=== PATIENT | male | born 1975 | race Caucasian/White ===

== ENCOUNTER 2016-12-01 07:36 | Emergency (ER) | payer BC ==
[2016-12-01 07:48] VITALS: BP 167/106
[2016-12-01] MEDS ORDERED: Aspirin Low Dose CHEW TAB* 81 MG PO ONE (08:01)
[2016-12-01] MEDS ORDERED: Aspirin Low Dose CHEW TAB* 81 MG ONE (08:02)
--- NOTE | 2016-12-13 17:06 | UC ---
Lola Whipple Anna, scribed for Ginger Vasquez MD on 12/01/16 at 0757 . Cardiac HPI - HPI Summary HPI Summary: Patient is a 41 y/o male coming to [facility] presenting with gradual onset of right- sided chest pain that began three days ago. The pain radiates to his back. He did a lot of shoveling four days ago and noticed the pain the next day. He has additionally been short of breath for the last two days. He worked normally for two days but had to stop working yesterday because of the pain. The pain is exacerbated by lying flat and somewhat alleviated by sitting up. He has been sleeping sitting up because of the pain. He has been coughing, though he reports he has been coughing somewhat at baseline. He has noticed wheezing. He has had diaphoresis at night. Denies nausea, rash, changes in urination from baseline, changes in BM, hematochezia, melena, syncope. His history is significant for HTN, a recent superficial venous thrombosis, and renal cell cancer. His thrombosis was dissolved. He denies recent travel, use of anticoagulants, a history of DM, or a family history of DM, a history of PE. He works every day in an active occupation. He currently smokes 10 cigarettes/day, down from PPD previously. He was hospitalized throughout February and March 2016 following surgery. - History of Current Complaint Stated Complaint: CHEST PAIN Hx Obtained From: Patient Onset/Duration: Lasting Days, Still Present - Allergy/Home Medications Allergies/Adverse Reactions: Allergies Allergy/AdvReac Type Severity Reaction Status Date / Time Penicillins Allergy Edema Verified 12/01/16 09:07 Contrast dye Allergy Severe Hives Uncoded 12/01/16 09:44 Home Medications: Home Medications busPIRone TAB* [Buspar TAB*] 5 mg PO BID 12/01/16 [History Confirmed 12/01/16] PMH/Surg Hx/FS Hx/Imm Hx Endocrine History Of: Denies: Diabetes, Thyroid Disease, Hyperthyroidism, Hypothyroidism, Dyslipidemia Cardiovascular History Of: Reports: Hypertension Denies: Cardiac Disorders, Pacemaker/ICD, Myocardial Infarction, Congestive Heart Failure, Atrial Fibrillation, Deep Vein Thrombosis, Bleeding Disorders Respiratory History Of: Denies: COPD, Asthma, Bronchitis, Pneumonia, Pulmonary Embolism GI/ History Of: Reports: Renal Disease - LEFT KIDNEY, GROSS HEMATURIA, renal cell CA with nephrectomy done March 2016 Denies: Gastroesophageal Reflux, Ulcer, Gastrointestinal Bleed, Gall Bladder Disease, Kidney Stones, Diverticulitis, Urosepsis Neurological History Of: Denies: TIA, CVA, Dementia, Seizures, Migraine Psychological History Of: Denies: Anxiety, Depression, Bipolar Disorder, Schizophrenia, Post Traumatic Stress Disorder Cancer History Of: Denies: Lung Cancer, Colorectal Cancer, Breast Cancer, Prostate Cancer, Cervical Cancer Other History Of: Negative For: HIV, Hepatitis B, Hepatitis C, Anticoagulant Therapy - Surgical History Surgical History: Yes Surgery Procedure, Year, and Place: EUA LEFT KNEE X 2. EUA RIGHT KNEE X 2. LEFT NEPHRECTOMY- bowel resection due to complications during surgery - Family History Known Family History: Positive: Hypertension Negative: Cardiac Disease, Diabetes - Social History Occupation: Employed Full-time - Construction Alcohol Use: Occasionally Alcohol Amount: 3 drinks at a time Substance Use Type: None Smoking Status (MU): Light Every Day Tobacco Smoker Type: Cigarettes Amount Used/How Often: 10 cigarettes/day, down from 1 ppd Length of Time of Smoking/Using Tobacco: 15 years Have You Smoked in the Last Year: Yes Household Exposure Type: Cigarettes - Immunization History Most Recent Influenza Vaccination: na Most Recent Tetanus Shot: 2014 Most Recent Pneumonia Vaccination: na Review of Systems Constitutional: Other - Diaphoretic at night Skin: Negative Eyes: Negative ENT: Negative Respiratory: Shortness Of Breath, Cough, Other - wheezing Cardiovascular: Chest Pain Gastrointestinal: Negative Genitourinary: Negative Motor: Negative Neurovascular: Negative Musculoskeletal: Negative Neurological: Negative Psychological: Negative All Other Systems Reviewed And Are Negative: Yes Physical Exam Triage Information Reviewed: Yes Appearance: Well-Nourished Vital Signs: Initial Vital Signs Temp 98.8 F 12/01/16 07:41 Pulse 82 12/01/16 07:41 Resp 20 12/01/16 07:41 BP 167/106 12/01/16 07:41 Pulse Ox 100 12/01/16 07:41 Vital Signs Reviewed: Yes Eye Exam: Normal ENT Exam: Normal Neck exam: Normal Neck: Positive: Other: - No adenopathy appreciated. Respiratory: Positive: No respiratory distress, No accessory muscle use. Negative: Chest non-tender - Tender posterior lateral chest wall, Normal breath sounds - Coarse bibasalar chest sounds. Berath sounds fairly equal. Cardiovascular Exam: Normal Cardiovascular: Positive: RRR, No Murmur, Pulses Normal - sitting up, Brisk Capillary Refill Abdominal Exam: Other - Post-operative scars on anterior abd wall, at site of kidney removal Abdomen Description: Positive: Nontender, No Organomegaly, Soft Bowel Sounds: Positive: Present Musculoskeletal Exam: Normal Musculoskeletal: Positive: Strength Intact Neurological Exam: Normal - Nonfocal, grossly intact Psychological Exam: Normal - Conversing easily and appropriately Skin Exam: Normal - No visible or reported rash Diagnostics - EKG Cardiac Rate: NL - 84 bpm. Early repol pattern W[place] 165 QTc 425. No old EKG for comparison. Cardiac Rhythm: Sinus: Normal - Assessment/Plan Course Of Treatment: Patient offered and encouraged EMS. Patient politely but firmly declines. Patient given four baby Aspirin prior to departure. - Clinical Impression Provider Diagnoses: chest pain - Physician Notifications Discussed Patient Care With: Called [facility] at 0803. No answer. Called again at 0808. After wait, discussed with Jessica Ruano (ED PA) at 0809. Agrees to accept patient at [facility]. Discharge - Discharge Plan Condition: Guarded Disposition: TRANS HIGHER LVL OF CARE FAC Referrals: Aleksander Busby MD [Primary Care Provider] - The documentation as recorded by the Lola manzano Anna accurately reflects the service I personally performed and the decisions made by me, Ginger Vasquez MD.
== END 2016-12-01 08:30 | disposition short-term general hospital (02) ==
LOC: UCEAST 07:36
DX: R07.89 Other chest pain (principal); R06.02 Shortness of breath; R06.2 Wheezing; R61 Generalized hyperhidrosis; I10 Essential (primary) hypertension; Z85.528 Personal history of other malignant neoplasm of kidney; Z90.5 Acquired absence of kidney; Z88.0 Allergy status to penicillin; Z91.041 Radiographic dye allergy status; F17.210 Nicotine dependence, cigarettes, uncomplicated
CPT/HCPCS: 93005; 99212; A9270-GY; G0463

== ENCOUNTER 2016-12-01 08:24 | Observation (INO) | payer BC ==
[2016-12-01] MEDS ORDERED: Aspirin Low Dose CHEW TAB* 81 MG PO ONE (08:37)
[2016-12-01] MEDS ORDERED: Nitroglycerin TAB 0.4 MG* 0.4 MG TAB SL ONE (08:45)
--- NOTE | 2016-12-01 08:58 | RAD ---
Indication: Chest pain, shortness of breath, hypertension. Comparison: April 15, 2016 CT abdomen and November 17, 2004 chest radiograph. Technique: Upright AP 0850 hours Report: Elevated lung volumes. No pulmonary infiltrate, focal pulmonary lesion, pleural effusion, pneumothorax. The heart, pulmonary vasculature, and mediastinal contours are unremarkable. IMPRESSION: Elevated lung volumes suggest potential obstructive lung disease. No acute cardiopulmonary process evident.
[2016-12-01 09:00] LABS: Hematocrit 48 % (42-52); Hemoglobin 16.4 g/dl (14.0-18.0); Mean Corpuscular HGB Conc 35 g/dl (31-36); Mean Corpuscular Hemoglobin 35 pg (27-31); Mean Corpuscular Volume 100 fL (80-94); Mean Platelet Volume 8 um3 (7.4-10.4); Red Blood Count 4.75 10^6/ul (4.0-5.4); Red Cell Distribution Width 13 % (10.5-15); White Blood Count 10.5 10^3/ul (3.5-10.8)
[2016-12-01 09:17] LABS: Albumin 4.4 g/dL (3.2-5.2); BUN/Creatinine Ratio 12.9 (8-20); Calcium 9.4 mg/dL (8.6-10.3); EGFR African American 89.2 (>60); EGFR Non-African American 69.4 (>60); Globulin 2.4 g/dL (2-4); Potassium 3.9 mmol/L (3.5-5.0); Total Bilirubin 0.8 mg/dL (0.2-1.0); Total Protein 6.8 g/dL (6.4-8.9)
--- NOTE | 2016-12-01 11:17 | RAD ---
Indication: Chest pain and shortness of breath. History of renal carcinoma with LEFT nephrectomy. Comparison: December 01, 2016 chest radiograph. Technique: Following administration of 12.900 mCi xenon-133 by inhalation anterior and posterior ventilation images were obtained. Following the administration of 6.200 mCi of Tc-99m macroaggregated albumin, perfusion images were obtained in multiple projections. Report: The ventilation pattern is uniform with no evidence of air trapping. Negative for segmental or subsegmental perfusion defects. IMPRESSION: No evidence for pulmonary embolism.
[2016-12-01] MEDS ORDERED: Ketorolac INJ* 30 MG/ML 1 ML VIAL IV PUSH ONE (11:31)
[2016-12-01] MEDS ORDERED: Ondansetron INJ* 2 MG/ML VIAL IV ONE (11:37)
[2016-12-01] MEDS ORDERED: Morphine INJ* 4 MG/ML 1 ML SYRINGE IV ONE (11:37)
[2016-12-01] MEDS ORDERED: Ketorolac INJ* 15 MG/ML 1 ML VIAL IV PUSH ONE (11:37)
[2016-12-01] MEDS ORDERED: Acetaminophen TAB* 325 MG PO PRN (12:33)
[2016-12-01] MEDS ORDERED: HYDROcodone/ACETAMIN 5-325 MG* 1 TAB PO PRN (12:33)
[2016-12-01] MEDS ORDERED: NS 0.9% 1000 ML* 1,000 ML IV SCH (12:45)
[2016-12-01 12:55] LABS: C Reactive Protein 2.2 mg/L (< 5.00)
[2016-12-01] MEDS: Nicotine PATCH 21 MG/24 HR* PATCH TRANSDERM SCH (13:07)
[2016-12-01] MEDS: Colchicine* 0.6 MG TAB PO SCH (13:08)
[2016-12-01 13:26] LABS: Erythrocyte Sed Rate 3 mm/Hr (0-14)
[2016-12-01] MEDS: Heparin VIAL(*) 5000 UNITS/ML VIAL (FIVE THOUSAND) SUBCUT SCH (15:42)
--- NOTE | 2016-12-01 16:20 | ECHO ---
Patient: RICHARD COTTO [facility] Rec#: [id number] : 1975 Date: 12/01/2016 Age: 41y Height: 182.88 cm / 72.0 in Weight: 75.75 kg / 167.0 lbs Sex: M BSA: 1.97 Room#: 441 Admit Date#: 12/01/2016 Type: Inpatient Referring: Dejuan Gonzalez NP Reading: Saman Santos MD Tool And Die Maker Apprentice: Socorro Lozano RDCS CC: Aleksander Busby MD Transthoracic Echocardiogram Indication: CP/SOB BP: 140/98 HR: 80 Rhythm: NSR Findings History: S/p left nephrectomy with subsequent abd. repair ( approx 2 weeks ago),smoker. Technical Comments: The study is technically limited due to the patient's smoking history. Completed at 1517. Left Ventricle: The left ventricular chamber size is normal. Mild concentric left ventricular hypertrophy is observed. Global left ventricular wall motion and contractility are within normal limits. There is normal left ventricular systolic function. The estimated ejection fraction is 55-60%. There is no consistent Doppler evidence of clinically significant diastolic dysfunction. Left Atrium: The left atrial chamber size is normal. Right Ventricle: The right ventricular cavity size is normal. The right ventricular global systolic function is normal. Right Atrium: The right atrial cavity size is normal. Aortic Valve: The aortic valve is trileaflet. There is no evidence of aortic regurgitation. There is no evidence of aortic stenosis. Mitral Valve: The mitral valve leaflets are mildly thickened. There is mild mitral regurgitation. There is no evidence of mitral stenosis. Tricuspid Valve: The tricuspid valve leaflets are normal. There is a physiologic tricuspid regurgitation. Unable to estimate the right ventricular systolic pressure. Pulmonic Valve: The pulmonic valve appears normal. There is no evidence of pulmonic regurgitation. There is no pulmonic stenosis. Pericardium: The pericardium appears normal. There is no pericardial effusion. Aorta: There is no dilatation of the ascending aorta. There is no dilatation of the aortic arch. There is mild dilatation of the aortic root. Pulmonary Artery: The main pulmonary artery appears normal. Venous: The inferior vena cava appears normal in size. There is a greater than 50% respiratory change in the inferior vena cava dimension. Conclusions Mild concentric left ventricular hypertrophy is observed. Global left ventricular wall motion and contractility are within normal limits. There is normal left ventricular systolic function. The estimated ejection fraction is 55-60%. There is no evidence of aortic regurgitation. There is mild mitral regurgitation. There is a physiologic tricuspid regurgitation. Unable to estimate the right ventricular systolic pressure. The pericardium appears normal. Measurements Name Value Normal Range RVIDd (AP) 2D 3 cm (0.9 - 2.6) RVDdMajor (2D) 3.3 cm (2.2 - 4.4) RAd ISD 4CH 4.6 cm (3.4 - 4.9) RA (A4C)W 2.9 cm (2.9 - 4.6) IVSd (2D) 1.2 cm (0.6 - 1) LVPWd (2D) 1.2 cm (0.6 - 1) LVIDd (2D) 4.2 cm (3.6 - 5.4) LVIDs (2D) 3 cm - LV FS (2D) 28 % (25 - 45) Aortic Annulus 2 cm (1.4 - 2.6) Ao root diameter (2D) 3.7 cm (2.1 - 3.5) Ascending Ao 2.7 cm (2.1 - 3.4) Aortic arch 2.9 cm (1.8 - 3.4) Descending Ao 0.6 cm - LA dimension (AP) 2D 3.5 cm (2.3 - 3.8) LAd ISD 4CH 4.2 cm (2.9 - 5.3) LA ISD 4CH W 3.7 cm (2.5 - 4.5) Name Value Normal Range LA ESV SP 4CH (A/L) 39 ml - LA ESV SP 2CH (A/L) 37 ml - LA ESV BP (A/L) 41 ml - LA ESV BP (A/L) index 20.96 ml/m2 - LA ESV SP 4CH (MOD) 37 ml - LA ESV SP 2CH (MOD) 33 ml - Name Value Normal Range MV E-wave Vmax 0.8 m/sec - MV deceleration time 262 msec - MV A-wave Vmax 0.8 m/sec - MV E:A ratio 1.05 ratio - LV septal e' Vmax 0.11 m/sec - LV lateral e' Vmax 0.1 m/sec - LV E:e' septal ratio 7.27 ratio - LV E:e' lateral ratio 8 ratio - Name Value Normal Range AV Vmax 1.3 m/sec - AV VTI 24.3 cm - AV peak gradient 6.48 mmHg - AV mean gradient 3.97 mmHg - LVOT Vmax 1.2 m/sec - LVOT VTI 19.4 cm - LVOT peak gradient 5.38 mmHg - LVOT mean gradient 2.34 mmHg - Name Value Normal Range IVC diameter 1.1 cm - Name Value Normal Range PV Vmax 0.9 m/sec - PV peak gradient 3.17 mmHg -
--- NOTE | 2016-12-01 19:31 | HP ---
HISTORY AND PHYSICAL: DATE OF ADMISSION: 12/01/16 PRIMARY CARE PROVIDER: Dr. Busby. ATTENDING PHYSICIAN WHILE IN THE HOSPITAL: Claire Vaughn DO* (report dictated by Dejuan Gonzalez NP). CHIEF COMPLAINT: Chest discomfort. HISTORY OF PRESENTING ILLNESS: Mr. Scott is a 41-year-old male patient who recently was diagnosed with renal cell cancer status post nephrectomy, who comes into the ER today stating that over the last 48 hours he has had progressive worsening shortness of breath, dyspnea on exertion and pain in his chest that has been going on over the last 3 to 5 days. He noticed after working on his driveway last week he had some discomfort, but over the last 3 to 5 days it is much worse, so he states last night he tried lying flat and the night before and the pain was unbearable, as soon as he sat up the pain felt better. He states the pain has been mostly on the right side underneath the armpit, wrapping around to his back. He denied having any rash there or lesions or vesicles. He states that he has not been sick recently to his knowledge. No URI symptoms and no runny nose, cough or sore throat. He states the pain is worse when he takes a deep breath and he states that he has not had any chest pain with exertion and he describes the pain as a sharp stabbing pain that is constant and has been getting worse in the last few days. He came into the ER today, there was concern for the chest discomfort, we were asked to evaluate for admission. PAST MEDICAL HISTORY: Significant for: 1. Renal cell carcinoma, status post nephrectomy. 2. Hypertension. 3. DVT in the right upper extremity thought to be provoked after the surgery. PAST SURGICAL HISTORY: 1. He has had bilateral knee arthroscopies. 2. Nephrectomy on the left side with a complication of bowel perforation and status post correction of that. HOME MEDICATIONS: According to the list that we were able to obtain include: 1. BuSpar 5 mg p.o. b.i.d. 2. Lisinopril 2.5 mg at bedtime. ALLERGIES TO MEDICATIONS: Include PENICILLIN and IV DYE. FAMILY HISTORY: Reviewed, noncontributory. He does have a grandmother on his maternal side with cancer. SOCIAL HISTORY: He is about a half a pack to a pack a day smoker for about 14 years. He does not drink alcohol any more; if he does, it is very rarely. His surrogate decision maker is his mother Jigna and he is a director of construction. REVIEW OF SYSTEMS: There is no documented fever. He denied having any significant weight change. There was no double vision. There is no ear discharge. He denies having any rhinorrhea. No sore throat. No thyroid enlargement. There was chest pain per my HPI. There is dyspnea on exertion. No orthopnea. No nocturnal dyspnea. There is no abdominal pain. No nausea, no vomiting, no dysuria, no frequency. No loss of consciousness. No pruritus and no skin ulcerations. Review of 14 systems completed, all others negative. PHYSICAL EXAMINATION GENERAL: At this time, Mr. Scott is a 41-year-old male patient, appears to be well nourished, well developed. He does not appear to be in any acute distress. VITAL SIGNS: Blood pressure 140/98, pulse 73, respirations 18, O2 sat 97%, temperature 98.4. HEENT: Head is atraumatic, normocephalic. Eyes: EOMs intact. Sclerae anicteric and not pale. Throat: Oral mucosa appears to be moist. No oropharyngeal erythema. NECK: Supple. LUNGS: Clear to auscultation bilaterally. No wheezes or rhonchi. HEART: Sounds S1, S2. Regular rate and rhythm. No murmurs, rubs or gallops. ABDOMEN: Soft, flat, nontender. Bowel sounds present. EXTREMITIES: Pulses were 2+ throughout. He is able to move all 4 extremities with 5/5 strength. NEUROLOGIC: The patient is awake, alert, oriented x3. Tongue midline. Block Saw Operator were equal. No gross focal deficits. SKIN: Intact. LABORATORY DATA: Labs today revealed WBC 10.5, RBC of 4.75, hemoglobin 16.4, hematocrit 48, platelet count of 203. Sodium is 135, potassium 3.9, chloride 101, bicarb 28, BUN 15, creatinine 1.16, glucose 107, lactate 1.1, calcium 9.4, total bili 0.8, AST 20, ALT 21, alk phos 25, troponin 0.00, albumin 4.4. IMAGING: He had multiple imaging and EKGs in the ER. He had a chest x-ray which showed elevated lung volumes to suggest potential obstructive lung disease. No acute cardiac process evident. He had a lung V/Q scan which revealed no evidence of PE. He had serial EKGs here in the ER. It is noted on these EKGs that he does have what appears to be diffuse ST elevation and PA depression throughout and J- point elevation as well, which had been consistent with his EKGs that he has had, he has had 4 today. Old medical records reviewed. ASSESSMENT AND PLAN: Mr. Scott is a 41-year-old male patient coming into the ER today with complaints of right-sided chest discomfort, worse with taking deep breath and in discomfort. Hospitalist service was asked to evaluate in consult. He will be admitted under observation status for: 1. Chest pain. I suspect the etiology of this is probably a pericarditis. He has got the EKG that looks suspicious for this. I do not know the etiology of this at this point, he had no recent upper respiratory symptoms. Typically I would treat this with NSAIDs. Unfortunately, because of the one kidney, this complicates things and I am going to try colchicine 0.6 mg p.o. b.i.d. I may need to add on steroids at some point, but I would like to try the colchicine, cycle his troponins, place him on telemetry, get an echo, repeat his labs in the morning to make sure he is stable and make sure his pain is under control. I also did order a small dose of [place] should his pain become out of control and I will continue to follow him. I am sending off ESR and CRP. 2. Hypertension, continue the lisinopril. 3. Renal cell carcinoma, follow up with his primary. 4. History of deep venous thrombosis. Again this was provoked in the past. I am going to put him on SCD's and subcu heparin for deep venous thrombosis prevention. 5. Code status: He is a full code. 6. Fluids, electrolytes and nutrition. He can have a regular diet. TIME SPENT: On the admission was approximately 60 minutes, greater than half the time was spent [id number] with the patient obtaining my history and physical, other half the time spent going over the plan of care with the patient and implementing plan of care. I did discuss the plan of care with my attending, Dr. Vaughn, she is in agreement. DEJUAN GONZALEZ NP CC: Dr. Busby* [id number]/[facility] #: [id number] JOSH
[2016-12-01] MEDS ORDERED: Lisinopril TAB* 5 MG PO SCH (21:00)
[2016-12-01] MEDS ORDERED: Nicotine Patch Removal NOTE FOLLOW UP SCH (21:00)
[2016-12-02] MEDS: Colchicine* 0.6 MG TAB PO SCH ×2 (00:05→08:34)
[2016-12-02] MEDS: Heparin VIAL(*) 5000 UNITS/ML VIAL (FIVE THOUSAND) SUBCUT SCH ×2 (00:07→06:05)
[2016-12-02] MEDS: busPIRone TAB* 5 MG PO SCH ×2 (00:08→08:35)
[2016-12-02 05:20] LABS: Hematocrit 48 % (42-52); Hemoglobin 16.3 g/dl (14.0-18.0); Mean Corpuscular HGB Conc 34 g/dl (31-36); Mean Corpuscular Hemoglobin 34 pg (27-31); Mean Corpuscular Volume 101 fL (80-94); Mean Platelet Volume 8 um3 (7.4-10.4); Red Blood Count 4.77 10^6/ul (4.0-5.4); Red Cell Distribution Width 13 % (10.5-15); White Blood Count 11.5 10^3/ul (3.5-10.8)
[2016-12-02 05:35] LABS: BUN/Creatinine Ratio 11.8 (8-20); Calcium 9.2 mg/dL (8.6-10.3); EGFR African American 86.6 (>60); EGFR Non-African American 67.4 (>60); Potassium 4.3 mmol/L (3.5-5.0)
[2016-12-02 07:49] VITALS: BP 120/87
[2016-12-02] MEDS: Nicotine PATCH 21 MG/24 HR* PATCH TRANSDERM SCH (08:36)
--- NOTE | 2016-12-02 08:57 | DCNOTE ---
Patient seen this morning. Pain has resolved, no complaints, anxious to leave. On exam, RRR, s1 and s2 present, no rub appreciated, lungs CTA B/L Will discharge home on colchicine for pericarditis. Has PCP f/u this week.
--- NOTE | 2016-12-03 04:04 | DS ---
DISCHARGE SUMMARY: DATE OF ADMISSION: 12/01/16 DATE OF DISCHARGE: 12/02/16 PRIMARY CARE PHYSICIAN: Aleksander Busby MD PRINCIPAL DISCHARGE DIAGNOSIS: Pericarditis. SECONDARY DIAGNOSES: 1. Renal cell carcinoma, status post nephrectomy. 2. Hypertension. DISCHARGE MEDICATIONS: 1. Colchicine 0.6 mg by mouth 3 times daily. 2. Lisinopril 2.5 mg by mouth at bedtime. 3. BuSpar 5 mg by mouth 2 times daily. STUDIES DURING HOSPITALIZATION: Chest x-ray, impression: Elevated lung volumes to suggest potential obstructive lung disease. No acute cardiac process is evident. V/Q scan, impression: No evidence for pulmonary embolism. Transthoracic echocardiogram, conclusion: Mild concentric LVH. Global left ventricular wall motion and contractility are within normal limits. There is normal left ventricular systolic function. The estimated ejection fraction is 55% to 60%. There is no evidence of aortic regurgitation. There is mild mitral regurgitation. There is physiologic tricuspid regurgitation, unable to estimate the right ventricular systolic pressure. The pericardium appears normal. HISTORY OF PRESENT ILLNESS AND HOSPITAL SUMMARY: Please see the full history and physical by Dejuan Gonzalez NP for full details. Briefly, Mr. Scott is a 41-year-old man with a past medical history as above who presented to the hospital with chest pain, some dyspnea on exertion. The patient states the pain improves when he sits forwards, is much worse when he lays flat. The patient had an echocardiogram done as above, that was normal. Troponins were negative. The patient had no events on tele. The patient did have EKG findings consistent with pericarditis. He was started on colchicine with improvement in his symptoms. He felt well the following day and he will be discharged home with oral colchicine to continue as an outpatient. TIME SPENT: Total time spent on this discharge 45 minutes. This is a summary of the hospitalization. Please see the full medical record for further details. CC: Dr. Busby* [id number]/[facility] #: [id number] [facility]
== END 2016-12-02 09:45 | disposition home or self-care (01) ==
LOC: ED 08:24 → MEDTELE 12:33
PROVIDERS: ADMIT Hospitalist; ATTEND Hospitalist
DX: I31.9 Disease of pericardium, unspecified (principal); I10 Essential (primary) hypertension; I51.7 Cardiomegaly; R07.9 Chest pain, unspecified; Z86.718 Personal history of other venous thrombosis and embolism; Z85.528 Personal history of other malignant neoplasm of kidney; Z88.0 Allergy status to penicillin; Z91.041 Radiographic dye allergy status; F17.210 Nicotine dependence, cigarettes, uncomplicated
CPT/HCPCS: 36415; 71010; 78582; 80048; 80053; 83605; 84484; 85025; 85610; 85652; 86140; 93005; 93306; 96361; 96374; 96375; 99284; A9270-GY; A9540; A9558; J1644; J1885; J2270; J2405

== ENCOUNTER 2017-03-05 06:36 | Emergency (ER) | payer BC ==
[2017-03-05] MEDS ORDERED: Ketorolac INJ* 60 MG/2 ML VIAL IM ONE (07:27)
[2017-03-05] MEDS ORDERED: LORazepam TAB(*) 1 MG PO ONE (07:27)
--- NOTE | 2017-03-05 08:25 | RAD ---
INDICATION: Trauma, low back pain. COMPARISON: Comparison is made with a prior CT of the abdomen and pelvis from March 05, 2016. TECHNIQUE: Contiguous axial sections were obtained beginning above the T12 vertebra and continuing through the L5-S1 disc space. Images were reconstructed in the sagittal and coronal planes. FINDINGS: The vertebra are in normal alignment. There is unilateral spondylolysis at the L5 level on the left side which is unchanged from the prior CT study. No other fractures are seen. At the L4-L5 level there is a mild broad-based disc bulge and mild hypertrophic changes within the facet joints. There is mild spinal canal narrowing and mild bilateral neural foraminal narrowing. At the L5-S1 level there is a mild broad-based disc bulge is a slightly more prominent posterolaterally toward the left side. There are mild hypertrophic changes within the facet joints. No significant spinal canal narrowing is present. There is mild bilateral neural foraminal narrowing. The patient is status post left nephrectomy. There is fatty infiltration of the liver which is only partially visualized on this study. IMPRESSION: 1. 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 2. MILD DEGENERATIVE DISC DISEASE AND FACET OSTEOARTHRITIS IN THE LOWER LUMBAR SPINE. 3. STATUS POST LEFT NEPHRECTOMY.
[2017-03-05] MEDS ORDERED: oxyCODONE/Acetamin 5/325 MG* TAB PO ONE (08:59)
[2017-03-05 09:59] VITALS: BP 120/78
--- NOTE | 2017-03-05 10:49 | ED ---
Rosalie Whipple Auryana, scribed for Rufino Hill MD on 03/05/17 at 0734 . Back Pain - HPI Summary HPI Summary: 41 year old male presents with low back pain starting yesterday afternoon worse since this morning. Patient states that he was lifting blocks yesterday afternoon and heard a large "pop". The pain is located in the medial lower back. Patient reports that he is unable to stand up straight and had difficulty getting out of bed. He denies any trouble with urination or bowel movements. He denies any leg weakness. He reports a previous low back injury in high school but denies any recent injuries or pain since then. PMHx is significant for kidney tumor with removal, HTN, and anxiety. PCP is Dr. Busby. - History of Current Complaint Chief Complaint: EDBackInjuryPain Stated Complaint: BACK PAIN Time Seen by Provider: 03/05/17 07:22 Hx Obtained From: Patient Onset/Duration: Sudden Onset, Lasting Days - yesterday afternoon, Still Present Onset/Duration: Started Days Ago - yesterday, Still Present Timing: Constant Back Pain Location: Is Discrete @ - lower back Severity Initially: Moderate Severity Currently: Severe Pain Intensity: 10 Pain Scale Used: 0-10 Numeric Aggravating Symptom(s): Movement Associated Signs And Symptoms: Positive: Pain with Weight Bearing - reports unable to stand up. Negative: Weakness, Bladder Incontinence, Bowel Incontinence - Allergies/Home Medications Allergies/Adverse Reactions: Allergies Allergy/AdvReac Type Severity Reaction Status Date / Time Penicillins Allergy Edema Verified 12/01/16 09:07 Contrast dye Allergy Severe Hives Uncoded 12/01/16 09:44 PMH/Surg Hx/FS Hx/Imm Hx Endocrine/Hematology History: Denies: Hx Anticoagulant Therapy, Hx Diabetes, Hx Thyroid Disease Cardiovascular History: Reports: Hx Hypertension Denies: Hx Congestive Heart Failure, Hx Deep Vein Thrombosis, Hx Myocardial Infarction, Hx Pacemaker/ICD Respiratory History: Denies: Hx Asthma, Hx Chronic Obstructive Pulmonary Disease (COPD), Hx Lung Cancer, Hx Pneumonia, Hx Pulmonary Embolism GI History: Reports: Other GI Disorders - Accidental surgery which damaged bowel ; repaired Denies: Hx Gall Bladder Disease, Hx Gastrointestinal Bleed, Hx Ulcer, Hx Urosepsis History: Reports: Hx Renal Disease - LEFT KIDNEY, GROSS HEMATURIA, renal cell CA with nephrectomy done March 2016, Other Problems/Disorders - L kidney removal Denies: Hx Kidney Stones Sensory History: Reports: Hx Contacts or Glasses Opthamlomology History: Reports: Hx Contacts or Glasses Neurological History: Denies: Hx Dementia, Hx Migraine, Hx Seizures, Hx Transient Ischemic Attacks (TIA) Psychiatric History: Denies: Hx Anxiety, Hx Depression, Hx Schizophrenia, Hx Bipolar Disorder - Cancer History Cancer Type, Location and Year: kidney renal cell CA Hx Chemotherapy: No Hx Radiation Therapy: No Hx Palliative Cancer Treatment: No - Surgical History Surgery Procedure, Year, and Place: EUA LEFT KNEE X 2. EUA RIGHT KNEE X 2. LEFT NEPHRECTOMY- bowel resection due to complications during surgery Infectious Disease History: No Infectious Disease History: Denies: History Other Infectious Disease, Traveled Outside the [place] in Last 30 Days - Family History Known Family History: Positive: Hypertension Negative: Cardiac Disease - Social History Occupation: Employed Full-time - other Lives: With Family Alcohol Use: Rare Alcohol Amount: 3 drinks at a time Substance Use Type: Reports: None Smoking Status (MU): Light Every Day Tobacco Smoker Type: Cigarettes Amount Used/How Often: 1 ppd Length of Time of Smoking/Using Tobacco: 15 years Have You Smoked in the Last Year: Yes Review of Systems Constitutional: Negative Negative: Fever Eyes: Negative ENT: Negative Cardiovascular: Negative Respiratory: Negative Gastrointestinal: Negative Genitourinary: Negative Positive: no symptoms reported Positive: Myalgia - low back pain Skin: Negative Neurological: Negative Negative: Weakness Psychological: Normal All Other Systems Reviewed And Are Negative: Yes Physical Exam Triage Information Reviewed: Yes Vital Signs On Initial Exam: Initial Vitals Temp Pulse Resp BP Pulse Ox 98.9 F 78 18 133/85 96 03/05/17 06:44 03/05/17 06:44 03/05/17 06:44 03/05/17 06:44 03/05/17 06:44 Vital Signs Reviewed: Yes Appearance: Positive: Well-Appearing, No Pain Distress, Well-Nourished Skin: Positive: Warm, Skin Color Reflects Adequate Perfusion, Dry Head/Face: Positive: Normal Head/Face Inspection Eyes: Positive: Normal ENT: Positive: Normal ENT inspection Neck: Positive: Supple, Nontender Respiratory/Lung Sounds: Positive: Clear to Auscultation, Breath Sounds Present Cardiovascular: Positive: RRR, Pulses are Symmetrical in both Upper and Lower Extremities Abdomen Description: Positive: Nontender, Soft Bowel Sounds: Positive: Present Musculoskeletal: Positive: Pain @ - lower lumbar midline, Other - (+) straight leg raise Neurological: Positive: Normal, Sensory/Motor Intact Psychiatric: Positive: Normal, Affect/Mood Appropriate Diagnostics - Vital Signs Vital Signs Temp Pulse Resp BP Pulse Ox 03/05/17 06:44 98.9 F 78 18 133/85 96 - Laboratory Lab Statement: Any lab studies that have been ordered have been reviewed, and results considered in the medical decision making process. - CT LUMBAR CT Interpretation: Positive (See Comments) - IMPRESSION: 1. 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 2. MILD DEGENERATIVE DISC DISEASE AND FACET OSTEOARTHRITIS IN THE LOWER LUMBAR SPINE. 3. STATUS POST LEFT NEPHRECTOMY. CT Interpretation Completed By: Radiologist Re-Evaluation - Re-Evaluation First Eval Re-Evaluation Time: 08:56 - will medicate as accordingly Change: Unchanged Back Pain Course/Dx - Course Course Of Treatment: Mr. Scott strained his back lifting a lawnmower yesterday and his W/U here was negative. He got somee improvement with medications here and I will treat him accordingly. - Diagnoses Provider Diagnoses: Low back strain Discharge - Discharge Plan Condition: Stable Disposition: HOME Prescriptions: HYDROcodone/ACETAMIN 5-325 MG* [[place] 5-325 TAB*] 1 tab PO Q6H PRN #20 tab MDD 4 PRN Reason: Pain LORazepam TAB(*) [Ativan TAB(*)] 1 mg PO Q6H PRN #20 tab MDD 4 PRN Reason: Pain Patient Education Materials: Low Back Strain (ED) Referrals: Aleksander Busby MD [Primary Care Provider] - 3 Days The documentation as recorded by the Rosalie manzano Auryana accurately reflects the service I personally performed and the decisions made by me, Rufino Hill MD.
== END 2017-03-05 10:10 | disposition home or self-care (01) ==
LOC: ED 06:36
DX: S39.012A Strain of muscle, fascia and tendon of lower back, initial encounter (principal); X58.XXXA Exposure to other specified factors, initial encounter; Y92.9 Unspecified place or not applicable; I10 Essential (primary) hypertension; F41.9 Anxiety disorder, unspecified; Z88.0 Allergy status to penicillin; F17.210 Nicotine dependence, cigarettes, uncomplicated; M51.36 Other intervertebral disc degeneration, lumbar region
CPT/HCPCS: 72131; 96372; 99282; A9270-GY; J1885

== ENCOUNTER 2018-03-10 09:27 | Emergency (ER) | payer BC ==
[2018-03-10] MEDS ORDERED: Methocarbamol* 100 MG/ML 10 ML VIAL IV ONE (09:46)
--- NOTE | 2018-03-10 10:00 | ED ---
Back Pain - HPI Summary HPI Summary: 42 year male presents with back pain for the past 6 weeks. He denies any injury. 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 Pain has been increasing every day. He has been taking Flexeril without relief. He's had normal CT couple months ago. was seen here a couple weeks ago and normal CT. He has a past medical history of renal cell carcinoma that was removed with surgery. He denies any chest pain or shortness of breath. Pain is worse at night. No numbness and tingling. No fevers. No saddle anesthesia or loss of bowel or bladder. He does not remember particular injury but lifts a lot at work. No bowel pain. No nausea and no vomiting. No urinary symptoms. No pain weakness. Primary told him to come here as the Flexeril is not working. - History of Current Complaint Chief Complaint: EDBackInjuryPain Stated Complaint: LT SIDE PAIN/DIFF BREATHING Time Seen by Provider: 03/10/18 09:37 Pain Intensity: 8 - Allergies/Home Medications Allergies/Adverse Reactions: Allergies Allergy/AdvReac Type Severity Reaction Status Date / Time Penicillins Allergy Intermediate Edema Verified 03/10/18 12:16 Contrast dye Allergy Severe Hives Uncoded 12/01/16 09:44 Home Medications: Home Medications Acetaminophen TAB* [Tylenol TAB*] 650 mg PO Q4H PRN 03/10/18 [History Confirmed 03/10/18] Lisinopril TAB* [Prinivil TAB*] 5 mg PO DAILY 03/10/18 [History Confirmed ] PMH/Surg Hx/FS Hx/Imm Hx Endocrine/Hematology History: Denies: Hx Anticoagulant Therapy, Hx Diabetes, Hx Thyroid Disease Cardiovascular History: Reports: Hx Hypertension Denies: Hx Congestive Heart Failure, Hx Deep Vein Thrombosis, Hx Myocardial Infarction, Hx Pacemaker/ICD Respiratory History: Denies: Hx Asthma, Hx Chronic Obstructive Pulmonary Disease (COPD), Hx Lung Cancer, Hx Pneumonia, Hx Pulmonary Embolism GI History: Reports: Other GI Disorders - Accidental surgery which damaged bowel ; repaired Denies: Hx Gall Bladder Disease, Hx Gastrointestinal Bleed, Hx Ulcer, Hx Urosepsis History: Reports: Hx Renal Disease - LEFT KIDNEY, GROSS HEMATURIA, renal cell CA with nephrectomy done March 2016, Other Problems/Disorders - L kidney removal Denies: Hx Kidney Stones Sensory History: Reports: Hx Contacts or Glasses Opthamlomology History: Reports: Hx Contacts or Glasses Neurological History: Denies: Hx Dementia, Hx Migraine, Hx Seizures, Hx Transient Ischemic Attacks (TIA) Psychiatric History: Denies: Hx Anxiety, Hx Depression, Hx Schizophrenia, Hx Bipolar Disorder - Cancer History Cancer Type, Location and Year: kidney renal cell CA Hx Chemotherapy: No Hx Radiation Therapy: No Hx Palliative Cancer Treatment: No - Surgical History Surgery Procedure, Year, and Place: EUA LEFT KNEE X 2. EUA RIGHT KNEE X 2. LEFT NEPHRECTOMY- bowel resection due to complications during surgery Infectious Disease History: No Infectious Disease History: Denies: History Other Infectious Disease, Traveled Outside the [place] in Last 30 Days - Family History Known Family History: Positive: Hypertension Negative: Cardiac Disease - Social History Alcohol Use: Rare Alcohol Amount: 3 drinks at a time Substance Use Type: Reports: None Smoking Status (MU): Light Every Day Tobacco Smoker Type: Cigarettes Amount Used/How Often: 1 ppd Length of Time of Smoking/Using Tobacco: 15 years Have You Smoked in the Last Year: Yes Review of Systems Negative: Fever Negative: Chest Pain Negative: Shortness Of Breath Positive: Myalgia - back pain All Other Systems Reviewed And Are Negative: Yes Physical Exam Triage Information Reviewed: Yes Vital Signs On Initial Exam: Initial Vitals Temp Pulse Resp BP Pulse Ox 98.9 F 80 19 149/111 97 03/10/18 09:30 03/10/18 09:30 03/10/18 09:30 03/10/18 09:30 03/10/18 09:30 Vital Signs Reviewed: Yes Appearance: Positive: Well-Appearing Skin: Positive: Warm, Dry Head/Face: Positive: Normal Head/Face Inspection Eyes: Positive: Normal, Conjunctiva Clear ENT: Positive: Pharynx normal Respiratory/Lung Sounds: Positive: Clear to Auscultation, Breath Sounds Present Cardiovascular: Positive: Normal, RRR Musculoskeletal: Positive: Strength/ROM Intact - back, Other - tenderness over left midback, no midline tenderness, neg SLR, good pulse, sensation grossly intact Neurological: Positive: Normal Gait Psychiatric: Positive: Normal Diagnostics - Vital Signs Vital Signs Temp Pulse Resp BP Pulse Ox 03/10/18 09:30 98.9 F 80 19 149/111 97 - Laboratory Result Diagrams: 03/10/18 10:52 03/10/18 09:59 Lab Statement: Any lab studies that have been ordered have been reviewed, and results considered in the medical decision making process. Re-Evaluation - Re-Evaluation First Eval Re-Evaluation Time: 12:16 Change: Unchanged Comment: still same after robaxin Second Eval Re-Evaluation Time: 13:56 Change: Improved Comment: pain is 2 Back Pain Course/Dx - Course Course Of Treatment: 42 year male presents with back pain for the past 6 weeks. He denies any injury. 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 Pain has been increasing every day. He has been taking Flexeril without relief. He's had normal CT couple months ago. was seen here a couple weeks ago and normal CT. He has a past medical history of renal cell carcinoma that was removed with surgery. He denies any chest pain or shortness of breath. Pain is worse at night. No numbness and tingling. No fevers. No saddle anesthesia or loss of bowel or bladder. He does not remember particular injury but lifts a lot at work. No bowel pain. No nausea and no vomiting. No urinary symptoms. No pain weakness. Primary told him to come here as the Flexeril is not working. On exam tenderness over left mid back near left flank. Neurovascularly intact. Lungs clear to auscultation. Does not have a kidney on that side so no chance of kidney stones. urine no infection. d-dimer normal. gave robaxin and pain the same. will try steriod, toradol, oxycodone and lidocaine patch and pain is 2. will discharge with same. patient understand and agrees with plan. - Diagnoses Differential Diagnosis/HQI/PQRI: Positive: Herniated Disc, Strain, Sprain, Other - PE Provider Diagnoses: Back pain Discharge - Sign-Out/Discharge Documenting (check all that apply): Discharge/Admit/Transfer - Discharge Plan Condition: Good Disposition: HOME Prescriptions: Lidocaine PATCH 5%* [Lidoderm 5% Patch*] 1 patch TRANSDERM DAILY #7 patch Methocarbamol TAB* [Robaxin 500 MG TAB*] 750 mg PO TID PRN #21 tab PRN Reason: Pain methylPREDNISolone [Medrol Dosepak 4 MG*] 4 mg PO .SEE LEONOR[employer] INSTRUCTION #1 packet oxyCODONE TAB* [Roxycodone TAB 5 mg*] 5 mg PO Q6H PRN #12 tab MDD 4 PRN Reason: Pain Patient Education Materials: Back Pain (ED) Referrals: Aleksander Busby MD [Primary Care Provider] - Additional Instructions: Follow directions on package for Medrol pack Take muscle relaxers three times a day Apply lidocaine patches to area for up to 12 hours in one 24 hour period Use Tylenol for pain every 6 hours, use oxycodone every 6 hours for extreme pain , will cause constipation heat on area, move as much as possible avoid lifting objects until pain subsides Follow up with primary within 5 days Return to ED if develop any new or worsening symptoms - Billing Disposition and Condition Condition: GOOD Disposition: Home
[2018-03-10 10:23] LABS: Urine Appearance Clear; Urine Blood Negative (Negative); Urine Color Yellow; Urine Ketones Trace (Negative); Urine Protein Negative (Negative); Urine Specific Gravity 1.023 (1.010-1.030); Urine Urobilinogen Negative (Negative)
[2018-03-10 10:35] LABS: EGFR Non-African American 75.8 (>60)
[2018-03-10 11:03] LABS: ABS Basophils 0.1 10^3/ul (0-0.2); ABS Eosinophils 0.1 10^3/ul (0-0.6); ABS Lymphocytes 2.1 10^3/ul (1.0-4.8); ABS Monocytes 0.7 10^3/ul (0-0.8); ABS Nucleated RBC 0 10^3/ul; Eosinophil % 0.7 % (0-6); Hematocrit 46 % (42-52); Hemoglobin 16.1 g/dl (14.0-18.0); Lymphocyte % 21.1 % (25-47); Mean Corpuscular HGB Conc 36 g/dl (31-36); Mean Corpuscular Hemoglobin 37 pg (27-31); Mean Corpuscular Volume 104 fL (80-94); Mean Platelet Volume 7.5 um3 (7.4-10.4); Nucleated Red Blood Cells % 0; Platelet Count 214 10^3/ul (150-450); Red Blood Count 4.37 10^6/ul (4.00-5.40); Red Cell Distribution Width 13 % (10.5-15)
[2018-03-10] MEDS ORDERED: Dexamethasone IV* 4 MG/ML 1 ML (4 MG) IV SLOW PU ONE (12:15)
[2018-03-10] MEDS ORDERED: Ketorolac INJ* 30 MG/ML 1 ML VIAL IV PUSH ONE (12:15)
[2018-03-10] MEDS ORDERED: oxyCODONE TAB* 5 MG TAB PO ONE (12:16)
[2018-03-10] MEDS ORDERED: Lidocaine PATCH 5%* 1 PATCH TRANSDERM SCH (13:00)
[2018-03-10 14:11] VITALS: BP 134/82
== END 2018-03-10 14:09 | disposition home or self-care (01) ==
LOC: ED 09:27
DX: M54.9 Dorsalgia, unspecified (principal); Z85.528 Personal history of other malignant neoplasm of kidney; F17.210 Nicotine dependence, cigarettes, uncomplicated; I10 Essential (primary) hypertension
CPT/HCPCS: 36415; 80053; 81003; 85025; 85379; 86140; 96374; 96375; 99284; A9270-GY; J1100; J1885; J2800

== ENCOUNTER 2019-11-19 12:34 | Inpatient (IN) | payer BC ==
--- OUTSIDE RECORDS SUMMARY | 2019-11-19 12:45 | XMS REPORT | Continuity of Care Document ---
:1975 External Reference #:[id number] Author Name Yoli William, RN CLINICAL REVIEW Address [address] [place] [address] Care Team Providers Name Role Phone Aleksander Busby MD - Family Medicine Care Team Information Herb Grower Zaid Joshua - Surgery Care Team Information Herb Grower [phone] [facility] Urology Care Team Information Herb Grower [phone] Oleksandr Lomas MD - Urology Care Team Information Herb Grower [phone] Janie Dillon PA-C - Care Team Information Herb Grower [phone] Gastroenterology Problems Active Problems Provider Date Phlebitis and thrombophlebitis Aleksander Busby M.D. Onset: 05/13/2016 Panic disorder without agoraphobia Aleksander Busby M.D. Onset: 08/16/2019 Essential hypertension Aleksander Busby M.D. Onset: 08/16/2019 Social History Type Date Description Comments Sex Unknown Tobacco Use Start: Unknown End: Unknown Former Cigarette Smoker Recreational Drug Use Denies Drug Use Tobacco Use Start: Unknown End: Unknown Patient is a former smoker Smoking Status Reviewed: 02/22/18 Patient is a former smoker Allergies, Adverse Reactions, Alerts Active Allergies Reaction Severity Comments Date Penicillin hives 09/14/2012 Contrast Dye hives 04/01/2016 Inactive Allergies NKDA 08/16/2012 Medications Active Medications SIG Qnty Indications Ordering Provider Date Lorazepam 1 by mouth twice 45tabs F41.0 Yoli William, 10/26/2019 0.5mg Tablets a day as needed RN CLINICAL REVIEW anxiety, nausea Propranolol HCL ER 1 by mouth in 90caps I10 Aleksander Busby, 08/16/2019 80mg the evening M.Familia Caps ER 24HR History Medications No Active Medications Unknown 08/16/2019 - 08/16/2019 Immunizations Description No Information Available Vital Signs Date Vital Result Comment 10/26/2019 10:44am BP Systolic 166 mmHg BP Diastolic 110 mmHg Heart Rate 94 /min Body Temperature 97.9 F Weight 153.00 lb 09/27/2019 8:37am BP Systolic 132 mmHg BP Diastolic 80 mmHg Heart Rate 84 /min Body Temperature 97.9 F Respiratory Rate 20 /min Height 71 inches 5'11" Weight 156.50 lb shoes on BMI (Body Mass Index) 21.8 kg/m2 Results Test Acquired Date Facility Test Result H/L Range Note Fibro Test-Actitest, [place] [facility] [place] 0.22 Serum FibroTest Stage F0-F1 FibroTest Interpretation no fibrosis 1 ActiTest Score 0.72 ActiTest Grade A3 ActiTest Interpretation severe activity 2 FibroTest-ActiTest Comment See Comment 3 [employer] Serial Number [id number] Apolipoprotein A1, S 220 mg/dL >=120 [id number]-[id number], S 157 mg/dL 100 - 280 Haptoglobin, S 103 mg/dL 30 - 200 Alanine Aminotransferase (Alt) 161 U/L Abnormal 7-55 Gamma Glutamyltransferase GGT 916 U/L Abnormal 8 - 61 Bilirubin, Total, S 0.4 mg/dL <=1.2 4 Laboratory test 09/27/2019 [facility] [place] Mitochondrial AB <0.1 U 5 finding AMA M2 Igg Laboratory test 09/27/2019 [facility]) GGTP 1137 U/L High 9-50 6 finding CBC Electronic 09/27/2019 [facility]) WBC 5.4 4.0-10 Fma x10^3/UL .0 RBC 4.25 x10^6/UL 3.93-6.00 HGB 15.7 g/dL 12.0-17.0 HCT 45 % 35-50 MCV 104.7 fL High 80.0-95.0 7 MCH 36.9 pg High 25.6-32.2 8 MCHC 35.3 g/dL 32.2-36.0 RDW-CV 12.4 % 11.6-14.4 PLT 65 x10^3/UL Low 163-400 9 MPV 11.2 fL 9.4-12.4 Radu# 2.60 x10^3/UL 1.56-6.13 Lymph# 1.94 x10^3/UL 1.18-3.74 Oneida# 0.59 x10^3/UL 0.24-0.82 Eos # 0.1 x10^3/UL 0.0-0.5 Baso # 0.04 x10^3/UL 0.01-0.08 Radu% 48.3 % 34.0-70.0 Lymph % 36.1 % 20.0-52.0 One[place]% 11.0 % 5.0-12.0 Eos% 2.6 % 0.7-7.0 Baso% 0.7 % 0.1-1.2 Hepatic 09/27/2019 [facility]) Total Protein 6.9 g/dL 6.4-8.3 Albumin 4.8 g/dL 3.8-5.5 Globulin 2.1 g/dL 2.0-4.8 A/G Ratio 2.3 CALC 0.6-2.3 Alk. Phosphatase 46 U/L 22-95 Alt (SGPT) 149 U/L High 7-35 10 Ast (Sgot) 235 U/L High 5-34 11 Total Bilirubin 0.5 mg/dL 0.2-1.3 Direct Bilirubn 0.2 mg/dL 0.0-0.6 Indirect Bilirubin 0.30 mg/dL 0.10-1.00 Hepatitis Acute Panel 08/17/[place] [facility] [place] B Surface Nonreactive Nonreactive Antigen Hepatitis B Core IgM Nonreactive Nonreactive Hepatitis A Ab IgM Negative Negative HCV Index 0.01 s/c Hepatitis C Antibody Negative Negative Comprehensive Metabolic 08/16/2019 [facility]) Sodium 132 mEq/L Low 134-149 12 Prof Potassium 3.7 mEq/L 3.6-5.5 Chloride 94 mEq/L 94-112 Carbon Dioxide 26 mEq/L 21-32 Glucose 87 mg/dL 70-105 BUN 17 mg/dL 6-26 Creatinine 1.0 mg/dL 0.6-1.4 BUN/Creat Ratio 17.0 CALC 8.0-36.0 Calcium 10.3 mg/dL High 8.6-10.2 13 Total Protein 7.8 g/dL 6.4-8.3 Albumin 5.3 g/dL 3.8-5.5 Globulin 2.5 g/dL 2.0-4.8 A/G Ratio 2.1 CALC 0.6-2.3 Alk. Phosphatase 49 U/L 22-95 Alt (SGPT) 74 U/L High 7-35 Ast (Sgot) 76 U/L High 5-34 Total Bilirubin 1.7 mg/dL High 0.2-1.3 14 GFR Non- >60 ml/min/1.73m^ >=60 GFR >60 ml/min/1.73m^ >=60 Laboratory test finding 08/16/2019 [facility]) TSH 1.72 mIU/L 0.50-6.00 GGTP 579 U/L High 9-50 15 Amylase, Serum 133 U/L High 20-105 16 CBC Electronic Fma 08/16/2019 [facility](a) WBC 8.3 x10^3/UL 4.0- 10.0 RBC 4.61 x10^6/UL 3.93-6.00 HGB 17.0 g/dL 12.0-17.0 HCT 47 % 35-50 MCV 102.8 fL High 80.0-95.0 MCH 36.9 pg High 25.6-32.2 MCHC 35.9 g/dL 32.2-36.0 RDW-CV 11.7 % 11.6-14.4 PLT 120 x10^3/UL Low 163-400 17 MPV 10.9 fL 9.4-12.4 Radu# 5.28 x10^3/UL 1.56-6.13 Lymph# 1.91 x10^3/UL 1.18-3.74 Oneida# 0.92 x10^3/UL High 0.24-0.82 Eos # 0.1 x10^3/UL 0.0-0.5 Baso # 0.02 x10^3/UL 0.01-0.08 Radu% 63.9 % 34.0-70.0 Lymph % 23.1 % 20.0-52.0 One[place]% 11.1 % 5.0-12.0 Eos% 0.7 % 0.7-7.0 Baso% 0.2 % 0.1-1.2 Total And 08/16/2019 [facility](fma) Total Bilirubin 1.7 mg/dL High 0.2-1.3 18 Direct Bili Direct Bilirubn 0.8 mg/dL High 0.0-0.6 Indirect Bilirubin 0.90 mg/dL 0.10-1.00 Laboratory test finding 08/16/2019 [facility] Lipase 39 U/L Normal 11.0-82.0 19 1 FibroTest estimates liver fibrosis FibroTest Score Stage Interpretation 0.00-0.21 F0 no fibrosis 0.21-0.27 F0-F1 no fibrosis 0.27-0.31 F1 minimal fibrosis 0.31-0.48 F1-F2 minimal fibrosis 0.48-0.58 F2 moderate fibrosis 0.58-0.72 F3 advanced fibrosis 0.72-0.74 F3-F4 advanced fibrosis 0.74-1.00 F4 severe fibrosis (Cirrhosis) 2 ActiTest estimates necroinflammatory activity ActiTest Score Grade Interpretation 0.00-0.17 A0 no activity 0.17-0.29 A0-A1 no activity 0.29-0.36 A1 minimal activity 0.36-0.52 A1-A2 minimal activity 0.52-0.60 A2 significant activity 0.60-0.62 A2-A3 significant activity 0.62-1.00 A3 severe activity 3 The reliability of results is dependent on compliance with the preanalytical and analytical conditions recommended by [employer]. The tests have to be deferred for: acute hemolysis, acute hepatitis, acute inflammation, extra hepatic cholestasis. The advice of a specialist should be sought for interpretation in chronic hemolysis and Gilbert's syndrome. The test interpretation is not validated in liver transplant patients. Isolated extreme values of one of the components should lead to caution in interpreting the results. In case of discordance between a biopsy result and a test, it is recommended to seek advice of a specialist. The causes of these discordances could be due to a flaw of the test or to a flaw in the biopsy: i.e. a liver biopsy has a 33% variability rate for one fibrosis stage. FibroTest is interpretable for chronic hepatitis B and C, alcoholic and non alcoholic steatosis. ActiTest is interpretable for chronic hepatitis B and C. ADDITIONAL INFORMATION This test was developed and its performance characteristics determined by [facility] in a manner consistent with CLIA requirements. This test has not been cleared or approved by the U.S. Food and Drug Administration. 4 Test Performed by: [facility] [address] Paver: Alden Mendez M.D. Ph.D.; CLIA# [id number] Test Performed by: [place] [address] Paver: Alden Mendez M.D. Ph.D.; CLIA# [id number] 5 REFERENCE VALUE <0.1 (Negative) Test Performed by: [place] [address] Paver: Alden Mendez M.D. Ph.D.; CLIA# [id number] 6 RESULTS VERIFIED BY REPEAT ANALYSIS 7 RESULTS VERIFIED BY REPEAT ANALYSIS 8 RESULTS VERIFIED BY REPEAT ANALYSIS 9 RESULTS VERIFIED BY REPEAT ANALYSIS 10 RESULTS VERIFIED BY REPEAT ANALYSIS 11 RESULTS VERIFIED BY REPEAT ANALYSIS 12 RESULTS VERIFIED BY REPEAT ANALYSIS 13 RESULTS VERIFIED BY REPEAT ANALYSIS 14 RESULTS VERIFIED BY REPEAT ANALYSIS 15 RESULTS VERIFIED BY REPEAT ANALYSIS 16 RESULTS VERIFIED BY REPEAT ANALYSIS 17 RESULTS VERIFIED BY REPEAT ANALYSIS 18 RESULTS VERIFIED BY REPEAT ANALYSIS [address] [facility] [id number] Procedures Description No Information Available Medical Devices Description No Information Available Encounters Type Date Location Provider Dx Diagnosis Office Visit 09/27/2019 [facility] Office Kiran Hays.5 Abnormal results 8:50a M.D. 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 Alcohol abuse with other alcohol-induced disorder G89.4 Chronic pain syndrome Office Visit 08/16/2019 8:20a [facility] Aleksander MartellHernandez I10 Essential ( primary) Dorene Busby hypertension F41.0 Panic disorder [episodic paroxysmal anxiety] R11.2 Nausea with vomiting, unspecified E80.7 Disorder of bilirubin metabolism, unspecified Assessments Date Code Description Provider 10/26/2019 F41.0 Panic disorder [episodic paroxysmal Yoli Stewart, RN CLINICAL REVIEW anxiety] 10/26/2019 R11.2 Nausea with vomiting, unspecified Yoli Stewart, [facility] 10/26/2019 F10.188 Alcohol abuse with other alcohol-induced Yoli Stewart, RN CLINICAL REVIEW disorder 10/26/2019 R94.5 Abnormal results of liver function studies Yoli William, [facility] 10/26/2019 I10 Essential (primary) hypertension Yolidonna William, [facility] 10/26/2019 R63.4 Abnormal weight loss Yolidonna William, [facility] 10/26/2019 G89.4 Chronic pain syndrome Yolidonna William, [facility] 09/27/2019 R94.5 Abnormal results of liver function studies Aleksander Busby M.D. 09/27/2019 I10 Essential (primary) hypertension Aleksander Busby M.D. 09/27/2019 F41.0 Panic disorder [episodic paroxysmal Aleksander Busby M.D. anxiety] 09/27/2019 R11.2 Nausea with vomiting, unspecified Aleksander Busby M.D. 09/27/2019 R23.3 Spontaneous ecchymoses Aleksander Busby M.D. 09/27/2019 F10.188 Alcohol abuse with other alcohol-induced Aleksander Busby M.D. disorder 09/27/2019 G89.4 Chronic pain syndrome Aleksander Busby M.D. 08/24/2019 R94.5 Abnormal results of liver function studies Aleksander Busby M.D. 08/17/2019 R94.5 Abnormal results of liver function studies Aleksander Busby M.D. 08/16/2019 I10 Essential (primary) hypertension Aleksander Busby M.D. 08/16/2019 F41.0 Panic disorder [episodic paroxysmal Aleksander Busby M.D. anxiety] 08/16/2019 R11.2 Nausea with vomiting, unspecified Aleksander Busby M.D. 08/16/2019 E80.7 Disorder of bilirubin metabolism, Aleksander Busby M.D. unspecified Plan of Treatment 10/26/2019 - Yoli William, HERMINIOPF41.0 Panic disorder [episodic paroxysmal anxiety]New Medication:Lorazepam 0.5 mg - 1 by mouth twice a day as needed anxiety, zcjvbmY31.2 Nausea with vomiting, unspecifiedComments:Abbreviate your diet-- mushy bland carbs several times dailyBRAT-- bananas rice applesauce toastPlease come back in 2 weeks to re-vicrtbsvQ50.188 Alcohol abuse with other alcohol-induced dlsfilcrH94.5 Abnormal results of liver function [id number] Essential (primary) psmfpfmlipqyO10.4 Abnormal weight lossG89.4 Chronic pain syndrome Functional Status Description No Information Available Mental Status Description No Information Available Referrals Refer to Reason for Referral Status Appt Date Janie Dillon PA-C EGD AND PLEASE CONSULT REGARDING Scheduled 2019 [facility]CTION jw [id number] [place] [address] [phone]
[2019-11-19] MEDS ORDERED: Lorazepam PYXIS KEY PRN (13:23)
[2019-11-19] MEDS ORDERED: LORazepam INJ* 2 MG/ML 1 ML VIAL IV PUSH ONE (13:23)
[2019-11-19] MEDS ORDERED: Lidocaine PATCH 5%* 1 PATCH TRANSDERM ONE (13:23)
[2019-11-19] MEDS ORDERED: diPHENhydraMINE IV* 50 MG/ML 1 ml VIAL (BENADRYL) IV ONE (13:25)
[2019-11-19 13:32] LABS: Hematocrit 43 % (42-52); Hemoglobin 15.1 g/dL (14.0-18.0); Mean Corpuscular HGB Conc 35 g/dL (31-36); Mean Corpuscular Hemoglobin 38 pg (27-31); Mean Corpuscular Volume 107 fL (80-94); Mean Platelet Volume 8.2 fL (7.4-10.4); Platelet Count 117 10^3/uL (150-450); Red Blood Count 3.97 10^6 /uL (4.18-5.48); Red Cell Distribution Width 14 % (10-15); White Blood Count 6.7 10^3/uL (3.5-10.8)
[2019-11-19 13:36] LABS: INR 0.89 (0.82-1.09)
[2019-11-19 13:48] LABS: Albumin 4.3 g/dL (3.2-5.2); Albumin/Globulin Ratio 1.7 (1-3); EGFR African American 123.5 (>60); EGFR Non-African American 102.1 (>60); Globulin 2.5 g/dL (2-4); Potassium 4.1 mmol/L (3.5-5.0); Total Bilirubin 0.5 mg/dL (0.2-1.0); Total Protein 6.8 g/dL (6.4-8.9)
[2019-11-19] MEDS ORDERED: Lorazepam PYXIS KEY ONE (13:50)
[2019-11-19 13:56] LABS: ABS Basophils 0.1 10^3/ul (0-0.2); ABS Eosinophils 0.1 10^3/ul (0-0.6); ABS Lymphocytes 2.6 10^3/ul (1.0-4.8); ABS Monocytes 0.7 10^3/ul (0-0.8); ABS Neutrophils 3.1 10^3/ul (1.5-7.7); Eosinophil % 1.2 %; Lymphocyte % 39.7 %; Nucleated Red Blood Cells % 0.1
[2019-11-19] MEDS ORDERED: NS 0.9% 1000 ML** 1,000 ML IV.FLUID IV ONE (14:07)
[2019-11-19] MEDS ORDERED: Iodixanol* (CONTRAST) 320 MG/ML 100 ML SDV IV ONE (14:51)
--- NOTE | 2019-11-19 16:20 | ED ---
Adult Trauma - HPI Summary HPI Summary: Pt is a 44yo M with a hx of alcohol abuse (denies), renal carcinoma s/p nephrectomy presenting to the ED with a fall 2 days ago. Patient states he was getting the mail when he fell on the ice, injuring his R ribs. Endorses 10/10 pain to this area and states over the past few days, he has been lying flat and not moving d/t pain, however the pain has worsened. Only endorses pain to the R ribs, denying any chest pain, SOB, abd pain, head pain, HAMM. Denies hitting his head or LOC. Denies any alcohol use on this date and for the past "several days to weeks." Mother at bedside states she goes to his home periodically to clean and try to get him food. Patient tends to be unable to go shopping and other ADL's d/t his alcohol use. Mother states she found 2 bottles of vodka this morning since she cleaned yesterday afternoon. Mother states hx of DT's. Spoke with brother, Uriel who is an ED attending in [place] stating he has been suicidal recently. Patient has been making comments of "there is no point to me being here," and "it doesn't matter if I leave this world." Brother is power of assistant attorney general and states he has been needing a MHE. Mother and family at bedside state they do not feel comfortable with his [place] home and will not be there to take care of him. - History of Current Complaint Chief Complaint: EDFall Stated Complaint: FALL/POSS RIB INJURY PER PT HCP Time Seen by Provider: 11/19/19 12:52 Hx Obtained From: Patient Onset/Duration: Started Days Ago Onset of Pain: Days Onset Severity: Moderate Current Severity: Moderate Pain Intensity: 8 Pain Scale Used: 0-10 Numeric Location: Abdomen/Pelvis - right rib Aggravating Factor(s): Nothing Associated Signs & Symptoms: Positive: Negative Related History: Alcohol Abuse - Additional Pertinent History Primary Care Physician: [id number] - Allergy/Home Medications Allergies/Adverse Reactions: Allergies Allergy/AdvReac Type Severity Reaction Status Date / Time Penicillins Allergy Intermediate Edema Verified 11/19/19 12:39 Contrast dye Allergy Severe Hives Uncoded 09/25/19 10:29 Home Medications: Home Medications Propranolol TAB* 80 mg PO DAILY 09/25/19 [History Confirmed 11/19/19] PMH/Surg Hx/FS Hx/Imm Hx Previously Healthy: Yes Endocrine/Hematology History: Denies: Hx Anticoagulant Therapy, Hx Diabetes, Hx Thyroid Disease Cardiovascular History: Reports: Hx Hypertension Denies: Hx Congestive Heart Failure, Hx Deep Vein Thrombosis, Hx Myocardial Infarction, Hx Pacemaker/ICD Respiratory History: Denies: Hx Asthma, Hx Chronic Obstructive Pulmonary Disease (COPD), Hx Lung Cancer, Hx Pneumonia, Hx Pulmonary Embolism GI History: Reports: Other GI Disorders - Accidental surgery which damaged bowel ; repaired Denies: Hx Gall Bladder Disease, Hx Gastrointestinal Bleed, Hx Ulcer, Hx Urosepsis History: Reports: Hx Renal Disease - LEFT KIDNEY, GROSS HEMATURIA, renal cell CA with nephrectomy done March 2016, Other Problems/Disorders - L kidney removal Denies: Hx Kidney Stones Sensory History: Reports: Hx Contacts or Glasses Opthamlomology History: Reports: Hx Contacts or Glasses Neurological History: Denies: Hx Dementia, Hx Migraine, Hx Seizures, Hx Transient Ischemic Attacks (TIA) Psychiatric History: Denies: Hx Anxiety, Hx Depression, Hx Schizophrenia, Hx Bipolar Disorder - Cancer History Cancer Type, Location and Year: kidney renal cell CA Hx Chemotherapy: No Hx Radiation Therapy: No Hx Palliative Cancer Treatment: No - Surgical History Surgery Procedure, Year, and Place: EUA LEFT KNEE X 2. EUA RIGHT KNEE X 2. LEFT NEPHRECTOMY- bowel resection due to complications during surgery - Immunization History Hx Pertussis Vaccination: No Immunizations Up to Date: Yes Infectious Disease History: No Infectious Disease History: Denies: History Other Infectious Disease, Traveled Outside the [place] in Last 30 Days - Family History Known Family History: Positive: Hypertension Negative: Cardiac Disease - Social History Occupation: Unemployed Lives: Alone Alcohol Use: Rare Alcohol Amount: drinks all day per family Hx Substance Use: No Substance Use Type: Reports: None Smoking Status (MU): Heavy Every Day Tobacco Smoker Type: Cigarettes Amount Used/How Often: 1 ppd Length of Time of Smoking/Using Tobacco: 15 years Have You Smoked in the Last Year: Yes Review of Systems Positive: Fatigue. Negative: Fever, Chills Negative: Chest Pain Positive: Cough. Negative: Shortness Of Breath Genitourinary: Negative Positive: Arthralgia - right sided rib pain with ecchymosis Neurological/Mental Status: Negative All Other Systems Reviewed And Are Negative: Yes Physical Exam Triage Information Reviewed: Yes Vital Signs On Initial Exam: Initial Vitals Temp Pulse Resp BP Pulse Ox 97.1 F 121 16 147/112 98 11/19/19 12:35 11/19/19 12:35 11/19/19 12:35 11/19/19 12:35 11/19/19 12:35 Vital Signs Reviewed: Yes Appearance: Positive: Ill-Appearing, Pain Distress Skin: Positive: Skin Color Reflects Adequate Perfusion Respiratory/Lung Sounds: Positive: Clear to Auscultation, Breath Sounds Present Cardiovascular: Positive: RRR, Pulses are Symmetrical in both Upper and Lower Extremities Musculoskeletal: Positive: Pain @ - right chest pain- rib pain Neurological: Positive: Sensory/Motor Intact, Slurred Speech Procedures - Sedation Patient Received Moderate/Deep Sedation with Procedure: No Diagnostics - Vital Signs Vital Signs Temp Pulse Resp BP Pulse Ox 11/19/19 16:00 92 93 11/19/19 15:52 89 95 11/19/19 15:51 90 123/85 95 11/19/19 14:07 83 146/98 95 11/19/19 14:02 18 11/19/19 12:35 97.1 F 121 16 147/112 98 - Laboratory Lab Results: Lab Results 11/19/19 11/19/19 11/19/19 Range/Units 13:21 13:21 13:21 WBC 6.7 (3.5-10.8) 10^3/uL RBC 3.97 L (4.18-5.48) 10^6 /uL Hgb 15.1 (14.0-18.0) g/dL Hct 43 (42-52) % MCV 107 H (80-94) fL MCH 38 H (27-31) pg MCHC 35 (31-36) g/dL RDW 14 (10-15) % Plt Count 117 L (150-450) 10^3/uL MPV 8.2 (7.4-10.4) fL Neut % (Auto) 46.8 % Lymph % (Auto) 39.7 % [place] % (Auto) 11.3 % Eos % (Auto) 1.2 % Baso % (Auto) 1.0 % Absolute Neuts (auto) 3.1 (1.5-7.7) 10^3/ul Absolute Lymphs (auto) 2.6 (1.0-4.8) 10^3/ul Absolute Monos (auto) 0.7 (0-0.8) 10^3/ul Absolute Eos (auto) 0.1 (0-0.6) 10^3/ul Absolute Basos (auto) 0.1 (0-0.2) 10^3/ul Absolute Nucleated RBC 0.0 10^3/ul Nucleated RBC % 0.1 INR (Anticoag Therapy) 0.89 (0.82-1.09) Sodium 141 (135-145) mmol/L Potassium 4.1 (3.5-5.0) mmol/L Chloride 102 (101-111) mmol/L Carbon Dioxide 26 (22-32) mmol/L Anion Gap 13 H (2-11) mmol/L BUN 9 (6-24) mg/dL Creatinine 0.82 (0.67-1.17) mg/dL Est GFR ( Amer) 123.5 (>60) Est GFR (Non-Af Amer) 102.1 (>60) BUN/Creatinine Ratio 11.0 (8-20) Glucose 90 (70-100) mg/dL Lactic Acid (0.5-2.0) mmol/L Calcium 9.0 (8.6-10.3) mg/dL Total Bilirubin 0.50 (0.2-1.0) mg/dL AST 153 H (13-39) U/L ALT 98 H (7-52) U/L Alkaline Phosphatase 49 (34-104) U/L Total Protein 6.8 (6.4-8.9) g/dL Albumin 4.3 (3.2-5.2) g/dL Globulin 2.5 (2-4) g/dL Albumin/Globulin Ratio 1.7 (1-3) Serum Alcohol 532 H* (<10) mg/dL 11/19/19 Range/Units 13:21 WBC (3.5-10.8) 10^3/uL RBC (4.18-5.48) 10^6 /uL Hgb (14.0-18.0) g/dL Hct (42-52) % MCV (80-94) fL MCH (27-31) pg MCHC (31-36) g/dL RDW (10-15) % Plt Count (150-450) 10^3/uL MPV (7.4-10.4) fL Neut % (Auto) % Lymph % (Auto) % [place] % (Auto) % Eos % (Auto) % Baso % (Auto) % Absolute Neuts (auto) (1.5-7.7) 10^3/ul Absolute Lymphs (auto) (1.0-4.8) 10^3/ul Absolute Monos (auto) (0-0.8) 10^3/ul Absolute Eos (auto) (0-0.6) 10^3/ul Absolute Basos (auto) (0-0.2) 10^3/ul Absolute Nucleated RBC 10^3/ul Nucleated RBC % INR (Anticoag Therapy) (0.82-1.09) Sodium (135-145) mmol/L Potassium (3.5-5.0) mmol/L Chloride (101-111) mmol/L Carbon Dioxide (22-32) mmol/L Anion Gap (2-11) mmol/L BUN (6-24) mg/dL Creatinine (0.67-1.17) mg/dL Est GFR ( Amer) (>60) Est GFR (Non-Af Amer) (>60) BUN/Creatinine Ratio (8-20) Glucose (70-100) mg/dL Lactic Acid 4.1 H* (0.5-2.0) mmol/L Calcium (8.6-10.3) mg/dL Total Bilirubin (0.2-1.0) mg/dL AST (13-39) U/L ALT (7-52) U/L Alkaline Phosphatase (34-104) U/L Total Protein (6.4-8.9) g/dL Albumin (3.2-5.2) g/dL Globulin (2-4) g/dL Albumin/Globulin Ratio (1-3) Serum Alcohol (<10) mg/dL Result Diagrams: 11/19/19 13:21 11/19/19 13:21 Lab Statement: Any lab studies that have been ordered have been reviewed, and results considered in the medical decision making process. Adult Trauma Course/Dx - Course Course Of Treatment: During course of treatment, patient is evaluated for alcohol use and intoxication as well as recent fall 2 days ago. He has significant bruising to the R ribs measuring 8x6cm. Light palpation with 10/10 pain. Unable to palpate around liver or abdomen as patient is guarding and wincing in pain. He appears to be in pain distress, but in no WD at this time. Denies any alcohol use today. Labs obtained showing a lactic acid of 4.2 and an alcohol or 532. Patient is given 3L fluids, 1mg ativan, benadryl 50mg IV and lidocaine patch to the area. Unable to receive opioids, tylenol or toradol given history and condition. Benadryl given in advance for a CT with contrast, however after speaking with Dr. Win, radiology, deferred IV contrast at this time. CT chest/abd/pelvis obtained without contrast (patient has documented serious hive allergy) obtained: IMPRESSION: 1. NO OBVIOUS SOURCE OF RIGHT FLANK PAIN. A RIGHT LATERAL NINTH RIB FRACTURE APPEARS OLD. 2. THERE IS NO LARGE HEMATOMA OR ASCITES. 3. NONCIRRHOTIC STEATOTIC LIVER. 4. STATUS POST LEFT NEPHRECTOMY. NO OBVIOUS NODULARITY IN THE OPERATIVE BED (EVALUATION LIMITED WITHOUT CONTRAST). 5. MILD BIAPICAL CENTRILOBULAR EMPHYSEMA. Discussed patients care with mother and brother (over phone) and both will not be supportive of him being discharged without MHE and concern for detoxing during this time. Discussed with hospitalist: Dr. Sullivan. Will continue to monitor with [facility] protocol. - Diagnoses Differential Diagnosis/HQI/PQRI: Positive: Contusion(s) Provider Diagnoses: Alcohol intoxication, Rib pain on right side - Physician Notifications Discussed Care Of Patient With: Mary Sullivan Instructed by Provider To: Admit As Inpatient Discharge ED - Sign-Out/Discharge Documenting (check all that apply): Patient Departure All imaging exams completed and their final reports reviewed: Yes - Discharge Plan Condition: Fair Disposition: ADMITTED TO [facility] - Billing Disposition and Condition Condition: FAIR Disposition: Admitted to [facility]
[2019-11-19] MEDS ORDERED: NS 0.9% 1000 ML** 1,000 ML IV ONE (16:22)
[2019-11-19] MEDS ORDERED: Al Hydrox/Mg Hydrox/Simet LIQ* 30 ML UDC PO PRN (17:05)
[2019-11-19] MEDS ORDERED: Ondansetron INJ* 2 MG/ML VIAL IV PRN (17:05)
[2019-11-19] MEDS ORDERED: Famotidine TAB* 20 MG PO PRN (17:14)
[2019-11-19 17:33] LABS: Urine Appearance Clear; Urine Bilirubin Negative (Negative); Urine Blood Negative (Negative); Urine Color Yellow; Urine Glucose Negative (Negative); Urine Ketones Negative (Negative); Urine Nitrite Negative (Negative); Urine Protein 1+(30 mg/dL) (Negative); Urine Urobilinogen Negative (Negative)
[2019-11-19 17:34] LABS: Urine Bacteria Absent (Absent); Urine Red Blood Cell Absent (Absent); Urine Squamous Epithelial Cell Present (Absent); Urine White Blood Cell Absent (Absent)
--- NOTE | 2019-11-19 18:55 | HP ---
CC: Dr. Aleksander Busby * HISTORY AND PHYSICAL: DATE OF ADMISSION: 11/19/19 PRIMARY CARE PHYSICIAN: Dr. Aleksander Busby. HEALTHCARE PROXY: Jigna Scott, the patient's mother, cellphone [phone]. CODE STATUS: Full code. CHIEF COMPLAINT: Two days of right rib pain. HISTORY OF PRESENT ILLNESS: Mr. Scott is a 44-year-old man with a history of renal cell carcinoma, status post left nephrectomy, complicated by multiple bowel surgeries in 2016; also hypertension; alcohol use disorder, who is presenting 2 days after slipping and falling while getting the mail. He did not lose consciousness or strike his head. He reports he slipped on ice and fell and his hit right ribs. Since then, he has had significant pain over his right ribs and he was concerned for a rib fracture, so he came to the emergency department. The patient adamantly denies drinking alcohol on the day of presentation or around the time that he was getting his mail 2 days ago. He also denies headache, fevers, chills, cough, shortness of breath, substernal chest pain, abdominal pain, dysuria. He denies dizziness, tinnitus around the time of his fall. PAST MEDICAL HISTORY: 1. 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 2. Hypertension. 3. Alcohol use disorder with hospitalizations for alcohol withdrawal. The patient denies intubation. He states during 1 hospitalization he is unclear if he had a seizure because he was also told that he had opioid-induced psychosis and DTs. HOME MEDICATIONS: Propranolol 100 mg daily. ALLERGIES: PENICILLIN causes hives, CONTRAST DYE causes hives and itching. FAMILY HISTORY: The patient's father was a smoker and has stage IV lung cancer. SOCIAL HISTORY: The patient states that he lives alone and works as a nurse general duty. He smokes 1 pack per day for approximately 20 years, although recently bought some nicotine patches with intention to quit. He states he drinks five to six 1.5-ounce shots of vodka every day. He rarely smokes marijuana. REVIEW OF SYSTEMS: A complete 10-point review of systems was performed and pertinent positives and negatives are listed in the HPI. PHYSICAL EXAMINATION GENERAL: He is a mildly uncomfortable appearing man, who appears his stated age. He is in no acute distress. He is alert, interactive, and answers all questions appropriately. VITAL SIGNS: Afebrile, heart rate 90, blood pressure 142/100, respiratory rate 16, oxygen saturation 96% on room air. HEENT: Moist mucous membranes. No tongue fasciculation. NECK: No JVD. Supple. LUNGS: Clear to auscultation anteriorly. CHEST: Scattered ecchymoses over the right lateral chest. HEART: Regular rate and rhythm. No murmurs, gallops, or rubs. ABDOMEN: Soft, nontender, nondistended. No hepatomegaly. EXTREMITIES: Warm and well perfused without evidence of edema. Mild intention tremors in hands bilaterally. NEURO: A and O x3. No focal deficits. DIAGNOSTIC STUDIES/LAB DATA: CBC notable for macrocytosis without anemia with MCV 107 and platelets 117 with unclear baseline as the patient has not had labs in our system in almost 2 years. BMP unremarkable. LFTs significant for AST/ ALT 153/98. Lactic acid 4.1. INR 0.89. Serum alcohol 532. CT chest, abdomen, and pelvis with contrast with no obvious source of right flank pain. A right lateral ninth rib fracture appears old. There are no large hematomas or ascites. Noncirrhotic steatotic liver. Status post left nephrectomy. No obvious nodularity in the operative bed, although evaluation is limited without contrast. Mild biapical centrilobular emphysema. ASSESSMENT AND PLAN: Mr. Scott is a 44-year-old man with alcohol use disorder , with possible prior delirium tremens; renal cell carcinoma, status post left nephrectomy; and hypertension, who is presenting 2 days after a mechanical fall for persistent rib pain. He is found with old rib fractures on CT scan as well as alcohol intoxication and multiple family members reporting suicidal ideation. 1. Alcohol intoxication with history of significant withdrawals. The patient will be admitted to the medical service for WA protocol with Ativan. He will also be initiated on gabapentin, which he is interested in taking as a medication to decrease cravings for long-term alcohol cessation. His lactic acidosis is likely from significant alcohol use and he is status post 3 L of IV fluid. We will now repeat the lactic acid. He will also be started on thiamine , folate, and multivitamin. 2. Suicidal ideation. A mental health evaluation has been ordered and will be done when the patient is no longer intoxicated. 3. Hypertension. Continue home propranolol XL 100 daily. 4. Right rib pain with history of right rib fractures. The patient is unable to take opioids or NSAIDs. He currently has lidocaine patch on with some relief. We will continue this as well as hot or cold packs. Pain may improve slightly with initiation of gabapentin as well. An incentive spirometer has been ordered. 5. DVT prophylaxis: Lovenox 40 mg subcu daily. 6. Code status: Full code. TIME SPENT: Approximately 60 minutes was spent on admission of this patient, more than half of which was spent at bedside for interview and exam. [id number] #: [id number] JOSH
[2019-11-19] MEDS ORDERED: Gabapentin CAP(*) 300 MG PO SCH (21:00)
[2019-11-19] MEDS ORDERED: Lidocaine Patch REMOVE* 1 NOTE MISC SCH (21:00)
[2019-11-19] MEDS: Multivitamins/Minerals TAB PO SCH (21:38)
[2019-11-19] MEDS: Enoxaparin(*) 40 MG/0.4 ML SYR SUBCUT SCH (21:38)
[2019-11-19] MEDS: Nicotine PATCH 14 MG/24 HR* PATCH TRANSDERM SCH (21:38)
[2019-11-19] MEDS: Thiamine TAB* 100 MG TAB PO SCH (21:38)
[2019-11-19] MEDS: Folic Acid TAB* 1 MG PO SCH (21:38)
[2019-11-19] MEDS: LORazepam INJ* 2 MG/ML 1 ML VIAL IV PUSH SCH ×2 (21:58→23:49)
[2019-11-19] MEDS: Lidocaine Patch REMOVE* 1 NOTE MISC SCH ×2 (21:58→22:12)
[2019-11-20] MEDS: LORazepam INJ* 2 MG/ML 1 ML VIAL IV PUSH SCH ×9 (01:38→21:25)
[2019-11-20] MEDS ORDERED: Acetaminophen TAB* 325 MG PO PRN (02:06)
[2019-11-20] MEDS ORDERED: NS 0.9% 1000 ML** 1,000 ML IV ONE (03:46)
[2019-11-20] MEDS: LORazepam INJ* 2 MG/ML 1 ML VIAL IV SCH ×3 (05:14→21:25)
[2019-11-20 07:01] LABS: ALT 102 U/L (7-52); AST 214 U/L (13-39); Albumin 4.1 g/dL (3.2-5.2); Albumin/Globulin Ratio 1.8 (1-3); Alkaline Phosphatase 53 U/L (34-104); Anion Gap 10 mmol/L (2-11); BUN/Creatinine Ratio 5.3 (8-20); Blood Urea Nitrogen 4 mg/dL (6-24); CO2 Carbon Dioxide 26 mmol/L (22-32); Calcium 8.6 mg/dL (8.6-10.3); Chloride 99 mmol/L (101-111); EGFR African American 136.9 (>60); EGFR Non-African American 113.1 (>60); Globulin 2.3 g/dL (2-4); Glucose 100 mg/dL (70-100); Potassium 3.8 mmol/L (3.5-5.0); Sodium 135 mmol/L (135-145); Total Protein 6.4 g/dL (6.4-8.9)
[2019-11-20] MEDS ORDERED: chlordiazePOXIDE CAP* 25 MG PO ONE (07:07)
--- NOTE | 2019-11-20 07:20 | PN ---
Subjective Date of Service: 11/20/19 Interval History: Higher WAM scores overnight - started by coverage on a benzo taper in addition to symptom-triggered therapy. Pt also got up from bed and had an unwitnessed fall - per report, no focal neuro signs and patient denies head strike or new symptoms (although poor historian). NCHCT normal. Patient states he feels well but also occasionally seems intermittently delirious, for eg, not knowing he is already in bed. He states his rib/side pain is still severe but denies anxiety, headache, or GI symptoms. Objective Active Medications: Acetaminophen (Tylenol Tab*) 650 mg PO Q4H PRN PRN Reason: PAIN - MILD Last Admin: 11/20/19 03:36 Dose: 650 mg Al Hydrox/Mg Hydrox/Simethicone (Maalox Plus*) 30 ml PO Q6H PRN PRN Reason: INDIGESTION Enoxaparin Sodium (Lovenox(*)) 40 mg SUBCUT Q24H [facility] Last Admin: 11/19/19 21:38 Dose: 40 mg Famotidine (Pepcid Tab*) 20 mg PO BID PRN PRN Reason: HEARTBURN Folic Acid (Folvite Tab*) 1 mg PO DAILY [facility] Last Admin: 11/19/19 21:38 Dose: 1 mg Gabapentin (Neurontin Cap(*)) 600 mg PO BID ALEXEY Lidocaine (Lidoderm 5% Patch*) 1 patch TRANSDERM DAILY [facility] Lorazepam (Ativan Inj*) 0 - 3 mg IV PUSH .PER [facility] PROTOCOL [facility]; Protocol Last Admin: 11/20/19 07:01 Dose: 3 mg Lorazepam (Ativan Inj*) 1 mg IV Q8H ALEXEY; Taper Stop: 11/23/19 01:59 Last Admin: 11/20/19 05:14 Dose: 1 mg Miscellaneous (Ativan Pyxis Vo) 1 ea N/A .ATIVAN IV VO PRN PRN Reason: PYXIS VO Multivitamins/Minerals (Theragran/Minerals Tab*) 1 tab PO DAILY [facility] Last Admin: 11/19/19 21:38 Dose: 1 tab Nicotine (Nicotine Patch 14 Mg/24 Hr*) 1 patch TRANSDERM DAILY [facility] Last Admin: 11/19/19 21:38 Dose: 1 patch Ondansetron HCl (Zofran Inj*) 4 mg IV Q4H PRN PRN Reason: NAUSEA/VOMITING Pharmacy Profile Note (Lidocaine Patch Remove*) 1 note N/A 2099 [facility] Last Admin: 11/19/19 22:12 Dose: 1 note Pharmacy Profile Note (Nicotine Patch Removal Note*) 1 note PATCH OFF 2099 [facility] Propranolol HCl (Inderal La Cap*) 80 mg PO DAILY [facility] Thiamine HCl (Vitamin B-1 Tab*) 100 mg PO DAILY [facility] Last Admin: 11/19/19 21:38 Dose: 100 mg Vital Signs - 8 hr 11/19/19 11/19/19 11/19/19 23:27 23:40 23:49 Temperature 98.1 F Pulse Rate 103 Respiratory 19 19 16 Rate Blood Pressure 154/90 (mmHg) O2 Sat by Pulse 98 Oximetry 11/20/19 11/20/19 11/20/19 01:00 01:05 01:38 Temperature 97.6 F Pulse Rate 116 Respiratory 20 20 20 Rate Blood Pressure 142/104 (mmHg) O2 Sat by Pulse 95 Oximetry 11/20/19 11/20/19 11/20/19 02:40 03:16 03:35 Temperature 100.2 F Pulse Rate 120 Respiratory 22 26 26 Rate Blood Pressure 150/84 (mmHg) O2 Sat by Pulse 96 Oximetry 11/20/19 11/20/19 11/20/19 03:40 04:34 04:55 Temperature 99.3 F Pulse Rate 117 Respiratory 24 24 18 Rate Blood Pressure 159/95 (mmHg) O2 Sat by Pulse 98 Oximetry 11/20/19 11/20/19 11/20/19 05:05 05:14 06:05 Temperature Pulse Rate Respiratory 18 18 20 Rate Blood Pressure (mmHg) O2 Sat by Pulse Oximetry 11/20/19 11/20/19 06:15 07:01 Temperature Pulse Rate Respiratory 20 18 Rate Blood Pressure (mmHg) O2 Sat by Pulse Oximetry Oxygen Devices in Use Now: None Appearance: not in acute distress, alert and interactive but occasionally gives inappropriate responses to questions; nontoxic appearing Eyes: No Scleral Icterus Ears/Nose/Mouth/Throat: Clear Oropharnyx, Mucous Membranes Moist Neck: NL Appearance and Movements; NL JVP, Trachea Midline Respiratory: Clear to Auscultation - anteriorly Cardiovascular: - - tachycaria, reg rhythm, no mgr Abdominal: NL Sounds; No Tenderness; No Distention, No Hepatosplenomegaly Extremities: No Edema Neurological: Alert and Oriented x 3, - - hand tremor b/l Result Diagrams: 11/19/19 13:21 11/20/19 06:35 Additional Lab and Data: Lab Results 11/19/19 11/19/19 11/19/19 Range/Units 13:21 13:21 13:21 WBC 6.7 (3.5-10.8) 10^3/uL RBC 3.97 L (4.18-5.48) 10^6 /uL Hgb 15.1 (14.0-18.0) g/dL Hct 43 (42-52) % MCV 107 H (80-94) fL MCH 38 H (27-31) pg MCHC 35 (31-36) g/dL RDW 14 (10-15) % Plt Count 117 L (150-450) 10^3/uL MPV 8.2 (7.4-10.4) fL Neut % (Auto) 46.8 % Lymph % (Auto) 39.7 % Delta % (Auto) 11.3 % Eos % (Auto) 1.2 % Baso % (Auto) 1.0 % Absolute Neuts (auto) 3.1 (1.5-7.7) 10^3/ul Absolute Lymphs (auto) 2.6 (1.0-4.8) 10^3/ul Absolute Monos (auto) 0.7 (0-0.8) 10^3/ul Absolute Eos (auto) 0.1 (0-0.6) 10^3/ul Absolute Basos (auto) 0.1 (0-0.2) 10^3/ul Absolute Nucleated RBC 0.0 10^3/ul Nucleated RBC % 0.1 INR (Anticoag Therapy) 0.89 (0.82-1.09) Sodium 141 (135-145) mmol/L Potassium 4.1 (3.5-5.0) mmol/L Chloride 102 (101-111) mmol/L Carbon Dioxide 26 (22-32) mmol/L Anion Gap 13 H (2-11) mmol/L BUN 9 (6-24) mg/dL Creatinine 0.82 (0.67-1.17) mg/dL Est GFR ( Amer) 123.5 (>60) Est GFR (Non-Af Amer) 102.1 (>60) BUN/Creatinine Ratio 11.0 (8-20) Glucose 90 (70-100) mg/dL Lactic Acid (0.5-2.0) mmol/L Calcium 9.0 (8.6-10.3) mg/dL Total Bilirubin 0.50 (0.2-1.0) mg/dL AST 153 H (13-39) U/L ALT 98 H (7-52) U/L Alkaline Phosphatase 49 (34-104) U/L Total Protein 6.8 (6.4-8.9) g/dL Albumin 4.3 (3.2-5.2) g/dL Globulin 2.5 (2-4) g/dL Albumin/Globulin Ratio 1.7 (1-3) Serum Alcohol 532 H* (<10) mg/dL 11/19/19 Range/Units 13:21 WBC (3.5-10.8) 10^3/uL RBC (4.18-5.48) 10^6 /uL Hgb (14.0-18.0) g/dL Hct (42-52) % MCV (80-94) fL MCH (27-31) pg MCHC (31-36) g/dL RDW (10-15) % Plt Count (150-450) 10^3/uL MPV (7.4-10.4) fL Neut % (Auto) % Lymph % (Auto) % Delta % (Auto) % Eos % (Auto) % Baso % (Auto) % Absolute Neuts (auto) (1.5-7.7) 10^3/ul Absolute Lymphs (auto) (1.0-4.8) 10^3/ul Absolute Monos (auto) (0-0.8) 10^3/ul Absolute Eos (auto) (0-0.6) 10^3/ul Absolute Basos (auto) (0-0.2) 10^3/ul Absolute Nucleated RBC 10^3/ul Nucleated RBC % INR (Anticoag Therapy) (0.82-1.09) Sodium (135-145) mmol/L Potassium (3.5-5.0) mmol/L Chloride (101-111) mmol/L Carbon Dioxide (22-32) mmol/L Anion Gap (2-11) mmol/L BUN (6-24) mg/dL Creatinine (0.67-1.17) mg/dL Est GFR ( Amer) (>60) Est GFR (Non-Af Amer) (>60) BUN/Creatinine Ratio (8-20) Glucose (70-100) mg/dL Lactic Acid 4.1 H* (0.5-2.0) mmol/L Calcium (8.6-10.3) mg/dL Total Bilirubin (0.2-1.0) mg/dL AST (13-39) U/L ALT (7-52) U/L Alkaline Phosphatase (34-104) U/L Total Protein (6.4-8.9) g/dL Albumin (3.2-5.2) g/dL Globulin (2-4) g/dL Albumin/Globulin Ratio (1-3) Serum Alcohol (<10) mg/dL Assess/Plan/Problems-Billing Assessment: 44M with alcohol use disorder, RCC s/p nephrectomy 2016, HTN, presents 2 days after mechanical fall with persistent rib pain, found with old R rib fractures and found with alcohol intoxication. Family reporting significant SI, pt now in alcohol withdrawal pending mental health evaluation. - Patient Problems (1) Alcohol withdrawal Comment: Patient told he had DTs in the past. Unclear if he's had alcohol withdrawal seizures. Denies need for intubation. - cont WAM protocol and symptom-triggered therapy - thiamine, folate and MVI - initiated on gabapentin (2) Suicidal ideations Comment: Denies SI but multiple family members reporting history of this. - pending stabilization of alcohol withdrawal prior to mental health evaluation (3) Right rib fracture Comment: Old fractures with recent fall to same side. Pt not a candidate for most oral analgesics. - cont topicals, lidocaine patch - started on gabapentin for alcohol withdrawal/cessation - incentive spirometer (4) Hypertension Comment: - cont home propranolol xl 100mg daily (5) Nicotine addiction Comment: - cont NRT patch daily (6) DVT prophylaxis Comment: lovenox
[2019-11-20] MEDS: Nicotine PATCH 14 MG/24 HR* PATCH TRANSDERM SCH (07:22)
[2019-11-20 07:24] LABS: Alcohol < 10 mg/dL (<10)
[2019-11-20] MEDS: Propranolol LA CAP* 80 MG PO SCH (07:28)
[2019-11-20] MEDS: Multivitamins/Minerals TAB PO SCH (07:29)
[2019-11-20] MEDS: Gabapentin CAP(*) 300 MG PO SCH ×2 (07:29→19:28)
[2019-11-20] MEDS: Folic Acid TAB* 1 MG PO SCH (07:29)
[2019-11-20] MEDS: Thiamine TAB* 100 MG TAB PO SCH (07:29)
[2019-11-20] MEDS: Lidocaine PATCH 5%* 1 PATCH TRANSDERM SCH (07:32)
[2019-11-20] MEDS: Nicotine Patch Removal NOTE PATCH OFF SCH ×2 (07:36→19:34)
[2019-11-20] MEDS: Enoxaparin(*) 40 MG/0.4 ML SYR SUBCUT SCH (17:26)
[2019-11-20] MEDS: Lidocaine Patch REMOVE* 1 NOTE MISC SCH (19:34)
[2019-11-20] MEDS ORDERED: LORazepam INJ* 2 MG/ML 1 ML VIAL IV PUSH ONE (22:51)
[2019-11-20] MEDS ORDERED: Lorazepam PYXIS KEY PRN (22:51)
[2019-11-20] MEDS ORDERED: LORazepam INJ* 2 MG/ML 1 ML VIAL ONE (22:53)
[2019-11-20] MEDS: Dexmedetomidine* 1,000 MCG in NS 0.9% 250 ML* 240 ML IV SCH (23:19)
--- NOTE | 2019-11-20 23:31 | PN ---
Hospitalist Progress Note Date of Service: 11/20/19 Called by nursing staff about he was hallucinating and aggressive towards staff. I asked nursed to give 4 mg ativan. Shortly after he was still aggressive and combative and trying to leave. He was a danger to himself. He scored a t 19 on the WAM despite ativan. Patient was becoming paranoid and hallucinating. At this point security called due to safety concerns. Nursing notified me again of this at this point patient tx to ICU for precedeex drip. I discussed the case with ICU attending at this point we will continue with the wam protocol and start a precedex drip at 1mcg/kg/hr. The goal is maintain a rass of 0. I updated my attending as well. I met patient in the ICU he is hallucinating and is noted to be agitated and aggressive towards staff. He wants to leave but can not tell me why. He is reaching for items in his bed that are not there. I suspect he is continuing to withdraw from alcohol. He is awake and alert to self only at this point.
[2019-11-20] MEDS ORDERED: Morphine INJ* 4 MG/ML 1 ML SYRINGE (NEW SYRINGE VERSION) IV ONE (23:37)
[2019-11-20] MEDS ORDERED: Haloperidol INJ IV/IM* 5 MG/ML AMP ONE (23:46)
[2019-11-21] MEDS ORDERED: LORazepam INJ* 2 MG/ML 1 ML VIAL IV PUSH ONE (00:10)
[2019-11-21] MEDS ORDERED: Haloperidol INJ IV/IM* 5 MG/ML AMP IV SLOW PU ONE ×2 (00:10)
[2019-11-21] MEDS ORDERED: NS 0.9% 1000 ML** 1,000 ML IV ONE (02:20)
[2019-11-21] MEDS ORDERED: Magnesium Sulfate 2 GM IV* 2 GM/50 ML BAG IVPB ONE ×2 (02:20→09:17)
[2019-11-21] MEDS: Multivitamins/Minerals TAB PO SCH (08:57)
[2019-11-21] MEDS: Folic Acid TAB* 1 MG PO SCH (08:57)
[2019-11-21] MEDS: Gabapentin CAP(*) 300 MG PO SCH ×2 (08:57→21:01)
[2019-11-21] MEDS: Thiamine TAB* 100 MG TAB PO SCH (08:58)
[2019-11-21] MEDS: Lidocaine PATCH 5%* 1 PATCH TRANSDERM SCH (08:58)
[2019-11-21] MEDS: Nicotine PATCH 14 MG/24 HR* PATCH TRANSDERM SCH (08:58)
[2019-11-21] MEDS: NS 0.9% 1000 ML** 1,000 ML IV SCH (09:33)
[2019-11-21] MEDS: Propranolol LA CAP* 80 MG PO SCH (10:19)
[2019-11-21] MEDS: LORazepam INJ* 2 MG/ML 1 ML VIAL IV SCH ×2 (10:45→23:10)
--- NOTE | 2019-11-21 14:24 | PN ---
<Rosemarie Oneal - Last Filed: 11/21/19 16:52> Date of Service: 11/21/19 Critical Care Services: Patient was alert and awake this morning. RASS 0 with precedex drip running. Mild tremelous, but no hallucinations, no nausea/vomitting, able to answer questions appropriately. Vital Signs: Temp Pulse Resp BP SpO2 FiO2 97.3 F 85 15 110/77 94 11/21/19 11:37 11/21/19 13:15 11/21/19 12:00 11/21/19 13:15 11/21/19 13:15 Physical Exam: Constitutional: awake, alert, no distress, no diaphoresis, mild tremulous Head: normocephalic, atraumatic Eyes: no pallor, no icterus ENT: moist mucous membranes Neck: soft, supple, no jvd, no stridor CVS: normal rate, regular, no murmur Chest/Resp: bilateral air entry, no rhales, no wheeze, no rhonchi, no acc muscle use Abdomen/GI: soft, nontender, nondistended, BS+ Ext/Msk: warm, pulses+, no edema; right hip area bruises, but bilateral hip and knee ROM intact. Neuro: awake, alert, orientedx3, moving all extremities, no gross focal deficit Fluid Balance (Past 24 Hours): I= O= Net Intake & Output 11/19/19 11/20/19 11/21/19 11/22/19 06:59 06:59 06:59 06:59 Intake Total 3470 1770 0 Output Total 1100 750 0 Balance 2370 1020 0 Weight 72.167 kg 72.938 kg Intake: IV Fluids 2990 990 NS (0.9%) 990 IVPB 60 mag 60 Oral 480 720 0 Output: Urine 850 750 0 Gonzalez 250 Other: Estimated Void Medium Large # Bowel Movements 0 0 0 # Voids 7 1 Labs: Laboratory Results - last 24 hr 11/21/19 11/21/19 00:17 01:28 POC Glucose (mg/dL) Cancelled Magnesium 1.3 L Studies: Hip X ray: no evidence of fracture. Nutrition: Regular diet Impression: Amilcar Scott is a 44 y/o male with history of alcohol use disorder with past DT , renal cell carcinoma s/p left nephrectomy, HTN, presented with a mechanical fall after alcohol intoxication, found to have right 9th rib fracture. He had WAM score 19 on floor not controlling with benzo, transferred to ICU for Precedex drip. Last drink 04/15, now still within 48 hours window. 1. Alcohol withdrawal 2. Fall with right 9th rib fracture 3. Transaminitis likely alcoholic hepatitis 4. Thrombocytopenia likely alcohol related bone marrow suppression or vitamin def related 5. Possible suicidal ideation- for further evaluation when patient out of withdrawal Plan: Neuro- RASS 0, slowly wean precedex drip - continue iv ativan seizure prophylaxis dose - watch withdrwal sx closely CVS-heart rate 80-90s, continue tele Resp- keep spO2>95% - nicotine patch for smoking cessation GI-transaminitis likely due to alcoholic hepatitis, no cirrhosis in CT scan or no decompensation sx , continue to trend liver function -Nutrition: regular unrestricted diet -GI prophylaxis Renal- -strict I/O, replete to keep K>4, Mg>2 -unable to void today, straight cath was done once, monitor urine output Heme- thrombocytopenia, likely related to alcohol - continue to trend plt Endo-glucose normal Musculsk- right rib fracture, conservative tx right hip pain, ROM intact, Xray no fracture. I don't think he needs further MRI to rule out fracture since his ROM intact. need PT once went to [facility]. Wounds- none Nutrition- fair DVT prophylaxis: sc Lovenox GI prophylaxis: oral famotidine Gonzalez Catheter: none, stragiht cath once today Disposition: Patient requires Critical Care/ICU for high risk alcohol withdrawal Patient clinical status: Improved Code Status: Full code Critical Care Time: 45min <Master Parikh - Last Filed: 11/21/19 17:23> Vital Signs: Temp Pulse Resp BP SpO2 FiO2 98.1 F 86 15 120/90 95 11/21/19 16:41 11/21/19 16:01 11/21/19 16:00 11/21/19 16:01 11/21/19 16:01 Physical Exam: Gen: HEENT: Lungs: Cardiac: Abdomen: Extremities: Neuro: Fluid Balance (Past 24 Hours): I= O= Net Intake & Output 11/19/19 11/20/19 11/21/19 11/22/19 06:59 06:59 06:59 06:59 Intake Total 3470 1770 299 Output Total 1100 750 550 Balance 2370 1020 -251 Weight 72.167 kg 72.938 kg Intake: IV Fluids 2990 990 299 NS (0.9%) 990 249 mag 50 IVPB 60 mag 60 Oral 480 720 0 Output: Urine 850 750 0 Gonzalez 250 Straight Cath 550 Other: Estimated Void Medium Large # Bowel Movements 0 0 0 # Voids 7 1 Labs: Laboratory Results - last 24 hr 11/21/19 11/21/19 00:17 01:28 POC Glucose (mg/dL) Cancelled Magnesium 1.3 L Plan: 44y M w/pmhx of alcohol abuse; upgraded to ICU voernight for suspected delirium tremens. required IV ativan, IV haldol, started on IV precedex. He is currently more awake, on very low dose precedex infusion. BP and HR stable. He is still tremulous, not agitated. 1:[address] no suicidal ideation noted. will continue precedex infusion, taper down as needed cont ativan 1mg po bid Assessment - Delirium Tremens ?suicidal ideation alcohol abuse i agree with plan with Resident, i personally supervised the resident in evaluation and management Total Critical Care time 45 min, not including procedures
[2019-11-21] MEDS: Enoxaparin(*) 40 MG/0.4 ML SYR SUBCUT SCH (18:35)
[2019-11-21] MEDS: Famotidine TAB* 20 MG PO SCH (21:01)
[2019-11-21] MEDS: Nicotine Patch Removal NOTE PATCH OFF SCH (21:03)
[2019-11-21] MEDS: Lidocaine Patch REMOVE* 1 NOTE MISC SCH (21:03)
[2019-11-22] MEDS ORDERED: diPHENhydraMINE PO* 50 MG PO PRN (00:33)
[2019-11-22] MEDS: NS 0.9% 1000 ML** 1,000 ML IV SCH ×2 (03:29→21:48)
[2019-11-22] MEDS: LORazepam INJ* 2 MG/ML 1 ML VIAL IV PUSH SCH ×5 (03:41→15:22)
[2019-11-22] MEDS: Thiamine TAB* 100 MG TAB PO SCH (07:34)
[2019-11-22] MEDS: Multivitamins/Minerals TAB PO SCH (07:34)
[2019-11-22] MEDS: Famotidine TAB* 20 MG PO SCH ×2 (07:34→20:26)
[2019-11-22] MEDS: Gabapentin CAP(*) 300 MG PO SCH ×2 (07:34→20:26)
[2019-11-22] MEDS: Folic Acid TAB* 1 MG PO SCH (07:34)
[2019-11-22] MEDS: Propranolol LA CAP* 80 MG PO SCH (07:34)
[2019-11-22] MEDS: Nicotine PATCH 14 MG/24 HR* PATCH TRANSDERM SCH (07:35)
[2019-11-22] MEDS: Lidocaine PATCH 5%* 1 PATCH TRANSDERM SCH (07:35)
[2019-11-22 12:26] LABS: Hematocrit 39 % (42-52); Hemoglobin 13.5 g/dL (14.0-18.0); Mean Corpuscular HGB Conc 35 g/dL (31-36); Mean Corpuscular Hemoglobin 38 pg (27-31); Mean Corpuscular Volume 109 fL (80-94); Red Blood Count 3.56 10^6 /uL (4.18-5.48); Red Cell Distribution Width 14 % (10-15); White Blood Count 8.1 10^3/uL (3.5-10.8)
[2019-11-22 12:35] LABS: BUN/Creatinine Ratio 12.2 (8-20); Calcium 8.9 mg/dL (8.6-10.3); EGFR African American 123.5 (>60); EGFR Non-African American 102.1 (>60); Magnesium 1.7 mg/dL (1.9-2.7); Potassium 3.9 mmol/L (3.5-5.0)
[2019-11-22 13:12] LABS: ABS Basophils 0.1 10^3/ul (0-0.2); ABS Eosinophils 0.2 10^3/ul (0-0.6); ABS Lymphocytes 1.6 10^3/ul (1.0-4.8); ABS Monocytes 0.7 10^3/ul (0-0.8); ABS Neutrophils 5.5 10^3/ul (1.5-7.7); Eosinophil % 2.2 %; Lymphocyte % 20.3 %; Mean Platelet Volume 8.4 fL (7.4-10.4); Nucleated Red Blood Cells % 0.1; Platelet Count 90 10^3/uL (150-450)
[2019-11-22] MEDS ORDERED: Magnesium Sulf 4 GM/100 ML IV* 4,000 MG/100 ML BAG IVPB ONE (13:37)
[2019-11-22] MEDS ORDERED: NS 0.9% 1000 ML** 1,000 ML IV SCH (13:38)
--- NOTE | 2019-11-22 13:51 | PN ---
<Rosemarie Oneal - Last Filed: 11/22/19 13:42> Date of Service: 11/22/19 Critical Care Services: Overnight, Precedex drip managed to wean off. This morning, patient was tremulous, claiming that he wanted AMA and "get a good sleep at home". He was able to answer questions appropriately, however he was confabulating and hallucinating, thus precedex was put back at 0.4. He stated he saw counselor yesterday afternoon, but in fact no one came and talked to her. He denied suicidal ideation, and claimed that he never said that. He didn't have the mental capacity to decide his disposition at this moment. Vital Signs: Temp Pulse Resp BP SpO2 FiO2 98.0 F 92 15 148/111 96 11/22/19 12:00 11/22/19 12:00 11/22/19 12:04 11/22/19 12:00 11/22/19 12:00 Physical Exam: Constitutional: awake, alert, no distress, no diaphoresis, tremulous Head: normocephalic, atraumatic Eyes: no pallor, no icterus ENT: moist mucous membranes Neck: soft, supple, no jvd, no stridor CVS: normal rate, regular, no murmur Chest/Resp: bilateral air entry, no rhales, no wheeze, no rhonchi, no acc muscle use Abdomen/GI: soft, nontender, nondistended, BS+ Ext/Msk: warm, pulses+, no edema; right hip area bruises, bilateral hip and knee ROM intact. Neuro: awake, alert, orientedx3, moving all extremities, no gross focal deficit Fluid Balance (Past 24 Hours): I= O= Net Intake & Output 11/20/19 11/21/19 11/22/19 11/23/19 06:59 06:59 06:59 06:59 Intake Total 3470 1770 2520 1200 Output Total 1100 750 925 Balance 2370 1020 1595 1200 Weight 72.167 kg 72.938 kg 68.5 kg Intake: IV Fluids 2990 990 1477 NS (0.9%) 990 1427 mag 50 IVPB 60 50 mag 60 50 Medicated IV 93 CC - Dexmedetomidine/ 93 Precedex Oral 480 234 417 6049 Output: Urine 850 750 375 Gonzalez 250 Straight Cath 550 Other: Estimated Void Medium Large Large # Bowel Movements 0 0 0 0 # Voids 7 1 1 Labs: Laboratory Results - last 24 hr 11/22/19 11/22/19 12:03 12:03 WBC 8.1 RBC 3.56 L Hgb 13.5 L Hct 39 L MCV 109 H MCH 38 H MCHC 35 RDW 14 Plt Count 90 L MPV 8.4 Neut % (Auto) 68.5 Lymph % (Auto) 20.3 [place] % (Auto) 8.2 Eos % (Auto) 2.2 Baso % (Auto) 0.8 Absolute Neuts (auto) 5.5 Absolute Lymphs (auto) 1.6 Absolute Monos (auto) 0.7 Absolute Eos (auto) 0.2 Absolute Basos (auto) 0.1 Absolute Nucleated RBC 0.0 Nucleated RBC % 0.1 Sodium 133 L Potassium 3.9 Chloride 100 L Carbon Dioxide 19 L Anion Gap 14 H BUN 10 Creatinine 0.82 Est GFR ( Amer) 123.5 Est GFR (Non-Af Amer) 102.1 BUN/Creatinine Ratio 12.2 Glucose 63 L Calcium 8.9 Magnesium 1.7 L Nutrition: Regular unrestricted diet Impression: Amilcar Scott is a 44 y/o male with history of alcohol use disorder with past DT , renal cell carcinoma s/p left nephrectomy, HTN, presented with a mechanical fall after alcohol intoxication, found to have right 9th rib fracture. He had WAM score 19 on floor not controlling with benzo, transferred to ICU for Precedex drip. Last drink 04/15, now having withdrawal sx after weaning off precedex, back to precedex with increased dose of ativan. 1. Alcohol withdrawal 2. Fall with right 9th rib fracture 3. Transaminitis likely alcoholic hepatitis 4. Thrombocytopenia likely alcohol related bone marrow suppression or vitamin def related 5. Possible suicidal ideation- for further evaluation when patient out of withdrawalf Plan: Neuro- RASS 0-1, continue precedex drip - increase iv ativan dose to 1mg bid for today - continue WAM symptom triggered protocol - watch withdrawal sx closely CVS-heart rate 60-80s, continue tele Resp- keep spO2>95% - nicotine patch for smoking cessation GI-transaminitis likely due to alcoholic hepatitis, no cirrhosis in CT scan or no decompensation sx , continue to trend liver function -Nutrition: regular unrestricted diet Renal- -strict I/O, replete to keep K>4, Mg>2 - high AG acidosis in blood test today, could be lactic acidosis related to alcohol abuse - increase iv drip to 100ml/h Heme- thrombocytopenia worsening, likely related to alcohol - continue to trend plt - sontinue multivitamin, thiamine. Endo-glucose normal Musculsk- right rib fracture, conservative tx right hip pain, ROM intact, Xray no fracture.Need PT once went to [facility]. Wounds- none Nutrition- fair DVT prophylaxis: sc Lovenox GI prophylaxis: oral famotidine Gonzalez Catheter: none, stragiht cath once today Disposition: Patient requires Critical Care/ICU for high risk alcohol withdrawal Patient clinical status: Improved Code Status: Full code Critical Care Time: 45min <Master Parikh - Last Filed: 11/22/19 15:58> Vital Signs: Temp Pulse Resp BP SpO2 FiO2 98.0 F 82 18 160/116 96 11/22/19 12:00 11/22/19 14:00 11/22/19 15:22 11/22/19 14:00 11/22/19 14:00 Physical Exam: Gen: HEENT: Lungs: Cardiac: Abdomen: Extremities: Neuro: Fluid Balance (Past 24 Hours): I= O= Net Intake & Output 11/20/19 11/21/19 11/22/19 11/23/19 06:59 06:59 06:59 06:59 Intake Total 3470 1770 2520 1840 Output Total 1100 750 925 Balance 2370 1020 1595 1840 Weight 72.167 kg 72.938 kg 68.5 kg Intake: IV Fluids 2990 990 1477 594 NS (0.9%) 990 1427 544 mag 50 50 IVPB 60 50 mag 60 50 Medicated IV 93 46 CC - Dexmedetomidine/ 93 46 Precedex Oral 480 846 049 3111 Output: Urine 850 750 375 Gonzalez [address] Cath 550 Other: Estimated Void Medium Large Large # Bowel Movements 0 0 0 0 # Voids 7 1 1 Labs: Laboratory Results - last 24 hr 11/22/19 11/22/19 12:03 12:03 WBC 8.1 RBC 3.56 L Hgb 13.5 L Hct 39 L MCV 109 H MCH 38 H MCHC 35 RDW 14 Plt Count 90 L MPV 8.4 Neut % (Auto) 68.5 Lymph % (Auto) 20.3 [place] % (Auto) 8.2 Eos % (Auto) 2.2 Baso % (Auto) 0.8 Absolute Neuts (auto) 5.5 Absolute Lymphs (auto) 1.6 Absolute Monos (auto) 0.7 Absolute Eos (auto) 0.2 Absolute Basos (auto) 0.1 Absolute Nucleated RBC 0.0 Nucleated RBC % 0.1 Sodium 133 L Potassium 3.9 Chloride 100 L Carbon Dioxide 19 L Anion Gap 14 H BUN 10 Creatinine 0.82 Est GFR ( Amer) 123.5 Est GFR (Non-Af Amer) 102.1 BUN/Creatinine Ratio 12.2 Glucose 63 L Calcium 8.9 Magnesium 1.7 L Plan: 44y M w/pmhx of alcohol abuse; upgraded to ICU voernight for suspected delirium tremens. required IV ativan, IV haldol, started on IV precedex. He is currently more awake, was taken off precedex today; held and then remained tremulous, so restarted low dose change ativan po to 1mg bid standing afebrile, wbc normal. noted some metabolic acidosis he is awake, hallucinating at times. states he doesnt remember saying he wanted to kill himself. 1:1 at bedside late afternoon very agitated, required security again, hallucinating a lot. will need higher precedex; given 7mg ativan again. now more comfortable check lfts tomorrow. trend chem panel. started Ns 50cc/hr Assessment - Delirium Tremens, still ongoing ?suicidal ideation alcohol abuse elevated lfts Teaching Attestation This service has been performed in part by a resident under the direction of a teaching physician.I, Dr Master Parikh, performed the service, or was physically present during the critical, or guerra portions of the service, furnished by the resident. I participated in the management of the patient. Total Critical Care time 45 min, not including procedures
[2019-11-22] MEDS ORDERED: LORazepam INJ* 2 MG/ML 1 ML VIAL IV PUSH ONE ×4 (14:03→22:55)
[2019-11-22] MEDS ORDERED: Dextran 70/Hypromellose Tears Eye Drops 15 ml BTL (for Artificials Tears) BOTH EYES PRN (14:22)
[2019-11-22] MEDS ORDERED: Lorazepam PYXIS KEY ONE ×3 (14:58→22:58)
[2019-11-22] MEDS ORDERED: LORazepam INJ* 2 MG/ML 1 ML VIAL ONE ×3 (14:59→22:58)
[2019-11-22] MEDS: LORazepam INJ* 2 MG/ML 1 ML VIAL IV PUSH PRN ×2 (15:40→16:05)
[2019-11-22] MEDS ORDERED: diPHENhydraMINE IV* 50 MG/ML 1 ml VIAL (BENADRYL) IV ONE (16:18)
[2019-11-22] MEDS ORDERED: diPHENhydraMINE IV* 50 MG/ML 1 ml VIAL (BENADRYL) ONE (16:20)
[2019-11-22] MEDS: Dexmedetomidine* 1,000 MCG in NS 0.9% 250 ML* 240 ML IV SCH (16:26)
[2019-11-22] MEDS ORDERED: chlorproMAZINE INJ* 25 MG/ML 2 ML (50 MG) IV PRN (17:01)
[2019-11-22] MEDS: Enoxaparin(*) 40 MG/0.4 ML SYR SUBCUT SCH (18:57)
[2019-11-22] MEDS: LORazepam INJ* 2 MG/ML 1 ML VIAL IV SCH (20:03)
[2019-11-22] MEDS: Lidocaine Patch REMOVE* 1 NOTE MISC SCH (20:26)
[2019-11-22] MEDS: Nicotine Patch Removal NOTE PATCH OFF SCH (20:26)
[2019-11-22] MEDS ORDERED: Lorazepam PYXIS KEY PRN (22:55)
[2019-11-23] MEDS: LORazepam INJ* 2 MG/ML 1 ML VIAL IV PUSH SCH ×7 (00:29→13:45)
[2019-11-23] MEDS ORDERED: Haloperidol INJ IV/IM* 5 MG/ML AMP IV SLOW PU ONE (02:59)
[2019-11-23 04:26] LABS: Hematocrit 42 % (42-52); Hemoglobin 14.6 g/dL (14.0-18.0); Mean Corpuscular HGB Conc 35 g/dL (31-36); Mean Corpuscular Hemoglobin 38 pg (27-31); Mean Corpuscular Volume 109 fL (80-94); Mean Platelet Volume 7.9 fL (7.4-10.4); Platelet Count 114 10^3/uL (150-450); Red Blood Count 3.82 10^6 /uL (4.18-5.48); Red Cell Distribution Width 13 % (10-15); White Blood Count 8.2 10^3/uL (3.5-10.8)
[2019-11-23 05:00] LABS: ABS Basophils 0.1 10^3/ul (0-0.2); ABS Eosinophils 0.2 10^3/ul (0-0.6); ABS Lymphocytes 1.6 10^3/ul (1.0-4.8); ABS Monocytes 0.8 10^3/ul (0-0.8); ABS Neutrophils 5.5 10^3/ul (1.5-7.7); Eosinophil % 2.6 %; Lymphocyte % 19.3 %; Nucleated Red Blood Cells % 0.1
[2019-11-23 05:04] LABS: Albumin 4.2 g/dL (3.2-5.2); Albumin/Globulin Ratio 1.8 (1-3); BUN/Creatinine Ratio 13.1 (8-20); Calcium 8.6 mg/dL (8.6-10.3); EGFR African American 120.1 (>60); EGFR Non-African American 99.3 (>60); Globulin 2.4 g/dL (2-4); Indirect Bilirubin 0.8 mg/dL (0.3-1.0); Potassium 4.1 mmol/L (3.5-5.0); Total Bilirubin 1.1 mg/dL (0.2-1.0); Total Protein 6.6 g/dL (6.4-8.9)
[2019-11-23] MEDS: Dexmedetomidine* 1,000 MCG in NS 0.9% 250 ML* 240 ML IV SCH ×2 (08:30→19:47)
[2019-11-23] MEDS: Lidocaine PATCH 5%* 1 PATCH TRANSDERM SCH (09:20)
[2019-11-23] MEDS: Nicotine PATCH 14 MG/24 HR* PATCH TRANSDERM SCH (09:20)
[2019-11-23] MEDS: Famotidine TAB* 20 MG PO SCH ×2 (09:21→21:20)
[2019-11-23] MEDS: Thiamine TAB* 100 MG TAB PO SCH (09:21)
[2019-11-23] MEDS: Gabapentin CAP(*) 300 MG PO SCH ×3 (09:21→21:19)
[2019-11-23] MEDS: Propranolol LA CAP* 80 MG PO SCH (09:21)
[2019-11-23] MEDS: chlordiazePOXIDE CAP* 25 MG PO SCH ×2 (09:21→21:20)
[2019-11-23] MEDS: Multivitamins/Minerals TAB PO SCH (09:21)
[2019-11-23] MEDS: Folic Acid TAB* 1 MG PO SCH (09:21)
--- NOTE | 2019-11-23 11:53 | PN ---
<Rosemarie Oneal - Last Filed: 11/23/19 14:22> Date of Service: 11/23/19 Critical Care Services: Patient went in to DT yesterday afternoon, calmed down after about total 12mg of ativan doses and one dose of Thorazine. Overnight, patient went to DT again, haloperidol given, and percedex maxed out. Patient is still hallucinating and restless. RASS+1 This afternoon, he is getting agitated again. Psychology consult obtained, patient doesn't have mental capacity in deciding dispo. Vital Signs: Temp Pulse Resp BP SpO2 FiO2 98.1 F 73 17 140/111 97 11/23/19 08:00 11/23/19 11:00 11/23/19 11:08 11/23/19 11:00 11/23/19 11:00 Physical Exam: Constitutional: awake, confused, restless, hallucinating Head: normocephalic, atraumatic Eyes: no pallor, no icterus ENT: moist mucous membranes Neck: soft, supple, no jvd, no stridor CVS: normal rate, regular, no murmur Chest/Resp: bilateral air entry, no rhales, no wheeze, no rhonchi, no acc muscle use Abdomen/GI: soft, nontender, nondistended, BS+ Ext/Msk: warm, pulse Neuro: confused, not oriented, moving als+, no edema; right hip area bruises, bilateral hip and knee ROM intact. l extremities Fluid Balance (Past 24 Hours): I= O= Net Intake & Output 11/21/19 11/22/19 11/23/19 11/24/19 06:59 06:59 06:59 06:59 Intake Total 1770 2520 2932 Output Total 103 827 2269 350 Balance 1020 1595 1582 -350 Weight 72.938 kg 68.5 kg 69.74 kg Intake: IV Fluids 990 1477 1391 NS (0.9%) 990 1427 1341 mag 50 50 IVPB 60 50 50 mag 60 50 50 Medicated IV 93 291 CC - Dexmedetomidine/ 93 291 Precedex Oral 910 921 8279 Output: Urine 750 375 400 350 Gonzalez [address] Cath 550 Other: Estimated Void Large Large Medium # Bowel Movements 0 0 0 # Voids 1 1 1 Labs: Laboratory Results - last 24 hr 03/08/0211/22/19 11/23/19 12:03 12:03 04:13 WBC 8.1 RBC 3.56 L Hgb 13.5 L Hct 39 L MCV 109 H MCH 38 H MCHC 35 RDW 14 Plt Count 90 L MPV 8.4 Neut % (Auto) 68.5 Lymph % (Auto) 20.3 [place] % (Auto) 8.2 Eos % (Auto) 2.2 Baso % (Auto) 0.8 Absolute Neuts (auto) 5.5 Absolute Lymphs (auto) 1.6 Absolute Monos (auto) 0.7 Absolute Eos (auto) 0.2 Absolute Basos (auto) 0.1 Absolute Nucleated RBC 0.0 Nucleated RBC % 0.1 ABG pH ABG pCO2 ABG pO2 ABG HCO3 ABG O2 Saturation ABG Base Excess Sodium 133 L 132 L Potassium 3.9 4.1 Chloride 100 L 99 L Carbon Dioxide 19 L 14 L* Anion Gap 14 H 19 H BUN 10 11 Creatinine 0.82 0.84 Est GFR ( Amer) 123.5 120.1 Est GFR (Non-Af Amer) 102.1 99.3 BUN/Creatinine Ratio 12.2 13.1 Glucose 63 L 73 Lactic Acid Calcium 8.9 8.6 Magnesium 1.7 L 2.0 Total Bilirubin 1.10 H Direct Bilirubin 0.30 H Indirect Bilirubin 0.8 AST 82 H ALT 86 H Alkaline Phosphatase 61 Total Protein 6.6 Albumin 4.2 Globulin 2.4 Albumin/Globulin Ratio 1.8 11/23/19 11/23/19 11/23/19 04:13 05:18 05:21 WBC 8.2 RBC 3.82 L Hgb 14.6 Hct 42 MCV 109 H MCH 38 H MCHC 35 RDW 13 Plt Count 114 L MPV 7.9 Neut % (Auto) 66.7 Lymph % (Auto) 19.3 [place] % (Auto) 10.3 Eos % (Auto) 2.6 Baso % (Auto) 1.1 Absolute Neuts (auto) 5.5 Absolute Lymphs (auto) 1.6 Absolute Monos (auto) 0.8 Absolute Eos (auto) 0.2 Absolute Basos (auto) 0.1 Absolute Nucleated RBC 0.0 Nucleated RBC % 0.1 ABG pH 7.34 L ABG pCO2 23 L ABG pO2 140 H ABG HCO3 16.0 L ABG O2 Saturation 100.0 H ABG Base Excess -11.4 L Sodium Potassium Chloride Carbon Dioxide Anion Gap BUN Creatinine Est GFR ( Amer) Est GFR (Non-Af Amer) BUN/Creatinine Ratio Glucose Lactic Acid 0.3 L Calcium Magnesium Total Bilirubin Direct Bilirubin Indirect Bilirubin AST ALT Alkaline Phosphatase Total Protein Albumin Globulin Albumin/Globulin Ratio Impression: Amilcar Scott is a 44 y/o male with history of alcohol use disorder with past DT , renal cell carcinoma s/p left nephrectomy, HTN, presented with a mechanical fall after alcohol intoxication, found to have right 9th rib fracture. He had WAM score 19 on floor not controlling with benzo, transferred to ICU for Precedex drip. Last drink 11/18, having DT 11/21 requiring high dose of benzo and maximum precedex. Now still agitated and having violent behaviours, DT vs underlying psy disease. 1. Alcohol withdrawal with DT 2. Fall with right 9th rib fracture 3. Transaminitis likely alcoholic hepatitis 4. Thrombocytopenia likely alcohol related bone marrow suppression or vitamin def related 5. Possible suicidal ideation- from his ex girlfriend, patient denied it. Plan: Neuro- RASS 2, continue precedex drip max dose, increased dose of scheduled ativan - added librium - phenobarbiturate first dose given, will reassess in 30min and give more if still not calm - iv thiorazine daily dose - consulted psy today, patient doesn't have mental capacity in deciding dispo. will keep him inpatient. CVS-heart rate 80s, continue tele Resp- keep spO2>95% - nicotine patch for smoking cessation GI-transaminitis likely due to alcoholic hepatitis, no cirrhosis in CT scan or no decompensation sx , downtrending liver function -Nutrition: regular unrestricted diet Renal- -strict I/O, replete to keep K>4, Mg>2 - high AG acidosis, could be lactic acidosis related to alcohol abuse, repeat bmp today -continue iv drip to 100ml/h Heme- thrombocytopenia worsening, likely related to alcohol - continue to trend plt - sontinue multivitamin, thiamine. Endo-glucose normal Musculsk- right rib fracture, conservative tx right hip pain, ROM intact, Xray no fracture.Need PT once went to [facility]. Wounds- none Nutrition- fair DVT prophylaxis: sc Lovenox GI prophylaxis: oral famotidine Gonzalez Catheter: none, stragiht cath once today Disposition: Patient requires Critical Care/ICU for high risk alcohol withdrawal Patient clinical status: Improved Code Status: Full code Critical Care Time: 45min <Master Parikh - Last Filed: 11/23/19 15:06> Vital Signs: Temp Pulse Resp BP SpO2 FiO2 97.2 F 79 28 157/121 97 11/23/19 12:00 11/23/19 12:00 11/23/19 14:13 11/23/19 14:01 11/23/19 12:00 Physical Exam: Gen: HEENT: Lungs: Cardiac: Abdomen: Extremities: Neuro: Fluid Balance (Past 24 Hours): I= O= Net Intake & Output 11/21/19 11/22/19 11/23/19 11/24/19 06:59 06:59 06:59 06:59 Intake Total 1770 2520 2932 150 Output Total 159 480 6525 600 Balance 1020 1595 1582 -450 Weight 72.938 kg 68.5 kg 69.74 kg Intake: IV Fluids 990 1477 1391 NS (0.9%) 990 1427 1341 mag 50 50 IVPB 60 50 50 mag 60 50 50 Medicated IV 93 291 CC - Dexmedetomidine/ 93 291 Precedex Oral 770 342 7018 150 Output: Urine 750 375 400 600 Gonzalez [address] 550 Other: Estimated Void Large Large Medium # Bowel Movements 0 0 0 # Voids 1 1 1 Labs: Laboratory Results - last 24 hr 11/23/19 11/23/19 11/23/19 04:13 04:13 05:18 WBC 8.2 RBC 3.82 L Hgb 14.6 Hct 42 MCV 109 H MCH 38 H MCHC 35 RDW 13 Plt Count 114 L MPV 7.9 Neut % (Auto) 66.7 Lymph % (Auto) 19.3 [place] % (Auto) 10.3 Eos % (Auto) 2.6 Baso % (Auto) 1.1 Absolute Neuts (auto) 5.5 Absolute Lymphs (auto) 1.6 Absolute Monos (auto) 0.8 Absolute Eos (auto) 0.2 Absolute Basos (auto) 0.1 Absolute Nucleated RBC 0.0 Nucleated RBC % 0.1 ABG pH ABG pCO2 ABG pO2 ABG HCO3 ABG O2 Saturation ABG Base Excess Sodium 132 L Potassium 4.1 Chloride 99 L Carbon Dioxide 14 L* Anion Gap 19 H BUN 11 Creatinine 0.84 Est GFR ( Amer) 120.1 Est GFR (Non-Af Amer) 99.3 BUN/Creatinine Ratio 13.1 Glucose 73 Lactic Acid 0.3 L Calcium 8.6 Magnesium 2.0 Total Bilirubin 1.10 H Direct Bilirubin 0.30 H Indirect Bilirubin 0.8 AST 82 H ALT 86 H Alkaline Phosphatase 61 Total Protein 6.6 Albumin 4.2 Globulin 2.4 Albumin/Globulin Ratio 1.8 11/23/19 11/23/19 05:21 13:40 WBC RBC Hgb Hct MCV MCH MCHC RDW Plt Count MPV Neut % (Auto) Lymph % (Auto) [place] % (Auto) Eos % (Auto) Baso % (Auto) Absolute Neuts (auto) Absolute Lymphs (auto) Absolute Monos (auto) Absolute Eos (auto) Absolute Basos (auto) Absolute Nucleated RBC Nucleated RBC % ABG pH 7.34 L ABG pCO2 23 L ABG pO2 140 H ABG HCO3 16.0 L ABG O2 Saturation 100.0 H ABG Base Excess -11.4 L Sodium 135 Potassium 4.0 Chloride 104 Carbon Dioxide 15 L Anion Gap 16 H BUN 12 Creatinine 0.85 Est GFR ( Amer) 118.5 Est GFR (Non-Af Amer) 97.9 BUN/Creatinine Ratio 14.1 Glucose 94 Lactic Acid Calcium 8.6 Magnesium Total Bilirubin Direct Bilirubin Indirect Bilirubin AST ALT Alkaline Phosphatase Total Protein Albumin Globulin Albumin/Globulin Ratio Plan: 44y M w/pmhx of alcohol abuse, PTSD, anxiety disorder; in ICU for DTs. overnight yesterday needed security again, agitated, trying to leave, hallucinating. needed thorazine IV, haldol, ativan 8mg iv, benadryl and then finally sedated down, also no precedex infusion was on precedex overnight, but today again awake, agitated, wanting to leave. givne ativan but not taking meds and still awake. security called. he did not appears to be in DTs today, not tachycardic/hypertensive, not diaphoretic or confused as much. security was called. called psychiatry for evaluation for other underlying disorder; they have evaluated and deemed he doesnt have capacity but he does have big alcohol history. they will re-eval once bdz are out of his system tomorrow. they recommend use of antipsychotics PO and IM, prn bdz. precedex as needed. qtc 460s at 1am / EKG will cont precedex and wean down. change to oral/IM antipsychotics like thorazine and geodon. noted he has metabolic acidosis; unclear etiology; LFTs are downtrending already. will recheck bmp later today. does not appear toxic/septic, nor hypotensive. may have mild alcoholic hepatitis also given lft rise but already improving. would benefit from prednisolone 40mg po daily but he will likely not take PO. he may even develop some psychosis from steroids. CC time 45 min, not including procedures Teaching Attestation This service has been performed in part by a resident under the direction of a teaching physician.I, Dr Master Parikh, performed the service, or was physically present during the critical, or guerra portions of the service, furnished by the resident. I participated in the management of the patient.
[2019-11-23] MEDS ORDERED: PHENobarbital SODIUM(*) 65 MG/ML VIAL IV ONE (13:47)
[2019-11-23] MEDS ORDERED: Lorazepam PYXIS KEY PRN (13:49)
[2019-11-23] MEDS ORDERED: Lorazepam PYXIS KEY ONE (13:49)
[2019-11-23] MEDS ORDERED: LORazepam INJ* 2 MG/ML 1 ML VIAL IV PUSH ONE (13:50)
[2019-11-23] MEDS ORDERED: LORazepam INJ* 2 MG/ML 1 ML VIAL ONE ×2 (13:50)
[2019-11-23 14:23] LABS: BUN/Creatinine Ratio 14.1 (8-20); Calcium 8.6 mg/dL (8.6-10.3); EGFR African American 118.5 (>60); EGFR Non-African American 97.9 (>60)
[2019-11-23] MEDS ORDERED: Ziprasidone IM INJ* 20 MG/ML VIAL IM PRN (15:04)
[2019-11-23] MEDS: LORazepam TAB(*) 1 MG PO SCH ×2 (16:22→21:19)
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
[2019-11-23] MEDS: NS 0.9% 1000 ML** 1,000 ML IV SCH (17:34)
[2019-11-23] MEDS: Enoxaparin(*) 40 MG/0.4 ML SYR SUBCUT SCH (17:56)
[2019-11-23] MEDS ORDERED: chlorproMAZINE INJ* 25 MG/ML 2 ML (50 MG) IM SCH (21:00)
[2019-11-23] MEDS ORDERED: LORazepam INJ* 2 MG/ML 1 ML VIAL IV PUSH SCH (21:00)
[2019-11-23] MEDS: chlorproMAZINE TAB* 100 MG PO SCH (21:19)
[2019-11-23] MEDS: Nicotine Patch Removal NOTE PATCH OFF SCH (21:20)
[2019-11-23] MEDS: Lidocaine Patch REMOVE* 1 NOTE MISC SCH (21:20)
[2019-11-24] MEDS ORDERED: hydrALAZINE IV* 20 MG/ML VIAL IV SLOW PU ONE (02:30)
[2019-11-24] MEDS: LORazepam TAB(*) 1 MG PO SCH ×2 (02:35→08:54)
[2019-11-24 05:21] LABS: Hematocrit 42 % (42-52); Hemoglobin 15.2 g/dL (14.0-18.0); Mean Corpuscular HGB Conc 36 g/dL (31-36); Mean Corpuscular Hemoglobin 39 pg (27-31); Mean Corpuscular Volume 108 fL (80-94); Platelet Count 155 10^3/uL (150-450); Red Blood Count 3.94 10^6 /uL (4.18-5.48); Red Cell Distribution Width 13 % (10-15); White Blood Count 7.9 10^3/uL (3.5-10.8)
[2019-11-24 05:33] LABS: BUN/Creatinine Ratio 13.5 (8-20); EGFR African American 112.4 (>60); EGFR Non-African American 92.9 (>60); Magnesium 1.7 mg/dL (1.9-2.7); Potassium 4.4 mmol/L (3.5-5.0)
[2019-11-24 05:45] LABS: ABS Basophils 0.1 10^3/ul (0-0.2); ABS Eosinophils 0.2 10^3/ul (0-0.6); ABS Lymphocytes 1.8 10^3/ul (1.0-4.8); ABS Monocytes 0.8 10^3/ul (0-0.8); ABS Neutrophils 5.1 10^3/ul (1.5-7.7); Lymphocyte % 22.9 %; Nucleated Red Blood Cells % 0.1
[2019-11-24] MEDS: Dexmedetomidine* 1,000 MCG in NS 0.9% 250 ML* 240 ML IV SCH (07:38)
[2019-11-24] MEDS: Folic Acid TAB* 1 MG PO SCH (08:53)
[2019-11-24] MEDS: Thiamine TAB* 100 MG TAB PO SCH (08:53)
[2019-11-24] MEDS: Multivitamins/Minerals TAB PO SCH (08:53)
[2019-11-24] MEDS: Gabapentin CAP(*) 300 MG PO SCH (08:53)
[2019-11-24] MEDS: Propranolol LA CAP* 80 MG PO SCH (08:54)
[2019-11-24] MEDS: chlordiazePOXIDE CAP* 25 MG PO SCH (08:54)
[2019-11-24] MEDS: chlorproMAZINE TAB* 100 MG PO SCH (08:55)
[2019-11-24] MEDS: Nicotine PATCH 14 MG/24 HR* PATCH TRANSDERM SCH (08:55)
[2019-11-24] MEDS: Lidocaine PATCH 5%* 1 PATCH TRANSDERM SCH (08:55)
[2019-11-24] MEDS: Famotidine TAB* 20 MG PO SCH (08:55)
[2019-11-24] MEDS ORDERED: Magnesium Oxide TAB* 400 MG PO SCH (09:00)
--- NOTE | 2019-11-24 09:53 | PN ---
<Rosemarie Oneal - Last Filed: 11/24/19 09:46> Date of Service: 11/24/19 Critical Care Services: Patient was calm overnight. He is calm this morning eating breakfast, still tremulous when holding fork. He stated he was in [place] as he fell down. No diaphoresis, no nausea/vomiting. Weaning down Precedex since morning. Vital Signs: Temp Pulse Resp BP SpO2 FiO2 98.1 F 89 15 131/96 98 11/24/19 07:59 11/24/19 09:01 11/24/19 09:01 11/24/19 09:01 11/24/19 09:01 Physical Exam: Constitutional: awake, alert, tremulous when holding fork Head: normocephalic, atraumatic Eyes: no pallor, no icterus ENT: moist mucous membranes Neck: soft, supple, no jvd, no stridor CVS: normal rate, regular, no murmur Chest/Resp: bilateral air entry,clear on auscultation Abdomen/GI: soft, nontender, nondistended, BS+ Ext/Msk: warm, pulse Neuro: alert, oriented to time,but not place and person. moving als+, no edema ; right hip area bruises, bilateral hip and knee ROM intact. Fluid Balance (Past 24 Hours): O=6135 D=2784 Net= 643 Intake & Output 11/22/19 11/23/19 11/24/19 11/25/19 06:59 06:59 06:59 06:59 Intake Total 2520 2932 3443 125 Output Total 925 1350 2800 0 Balance 1595 1582 643 125 Weight 68.5 kg 69.74 kg 63.1 kg Intake: IV Fluids 1477 1391 1260 NS (0.9%) 1427 1341 1260 mag 50 50 IVPB 50 50 mag 50 50 Medicated IV 93 291 553 CC - Dexmedetomidine/ 93 291 553 Precedex Oral 900 1200 1630 125 Output: Urine 513 781 5560 0 Gonzalez 950 Straight Cath 550 Other: Estimated Void Large Medium # Bowel Movements 0 0 # Voids 1 1 Labs: Laboratory Results - last 24 hr 11/22/19 11/23/19 11/24/19 19:05 13:40 04:55 WBC RBC Hgb Hct MCV MCH MCHC RDW Plt Count MPV Neut % (Auto) Lymph % (Auto) [place] % (Auto) Eos % (Auto) Baso % (Auto) Absolute Neuts (auto) Absolute Lymphs (auto) Absolute Monos (auto) Absolute Eos (auto) Absolute Basos (auto) Absolute Nucleated RBC Nucleated RBC % Sodium 135 135 Potassium 4.0 4.4 Chloride 104 105 Carbon Dioxide 15 L 19 L Anion Gap 16 H 11 BUN 12 12 Creatinine 0.85 0.89 Est GFR ( Amer) 118.5 112.4 Est GFR (Non-Af Amer) 97.9 92.9 BUN/Creatinine Ratio 14.1 13.5 Glucose 94 101 H POC Glucose (mg/dL) 77 Calcium 8.6 10.0 Magnesium 1.7 L 11/24/19 04:55 WBC 7.9 RBC 3.94 L Hgb 15.2 Hct 42 MCV 108 H MCH 39 H MCHC 36 RDW 13 Plt Count 155 MPV 8.0 Neut % (Auto) 63.9 Lymph % (Auto) 22.9 [place] % (Auto) 10.5 Eos % (Auto) 2.0 Baso % (Auto) 0.7 Absolute Neuts (auto) 5.1 Absolute Lymphs (auto) 1.8 Absolute Monos (auto) 0.8 Absolute Eos (auto) 0.2 Absolute Basos (auto) 0.1 Absolute Nucleated RBC 0.0 Nucleated RBC % 0.1 Sodium Potassium Chloride Carbon Dioxide Anion Gap BUN Creatinine Est GFR ( Amer) Est GFR (Non-Af Amer) BUN/Creatinine Ratio Glucose POC Glucose (mg/dL) Calcium Magnesium Nutrition: Regular unrestricted diet Impression: Amilcar Scott is a 44 y/o male with history of alcohol use disorder with past DT , renal cell carcinoma s/p left nephrectomy, HTN, presented with a mechanical fall after alcohol intoxication, found to have right 9th rib fracture. He had WAM score 19 on floor not controlling with benzo, transferred to ICU for Precedex drip. Last drink 11/18, having DT 11/21 requiring high dose of benzo and maximum precedex. Now weaning down Precedex. 1. Alcohol withdrawal with DT 2. Fall with right 9th rib fracture 3. Transaminitis likely alcoholic hepatitis resolving 4. Thrombocytopenia resolving 5. Possible suicidal ideation or underlying psy disease- appreciate psy consult , started on antipsychotics yesterday Plan: Neuro- RASS 1, aim to wean off precedex today - continue ativan scheduled 2mg Q6h, continue librium 25mg bid - psychology reassessment today, continue thorazine regular dose for now CVS-heart rate 80s, continue tele Resp- keep spO2>95% - nicotine patch for smoking cessation GI-transaminitis likely due to alcoholic hepatitis, no cirrhosis in CT scan or no decompensation sx , downtrending liver function -Nutrition: regular unrestricted diet Renal- -strict I/O, replace magnesium to Mg>2 -acidosis improving -off iv drip Heme- thrombocytopenia resolved - macrocytosis, continue multivitamin, thiamine. Endo-glucose normal Musculsk- right rib fracture, conservative tx right hip pain, ROM intact, Xray no fracture.Need PT once went to [facility]. Wounds- none Nutrition- fair DVT prophylaxis: sc Lovenox GI prophylaxis: oral famotidine Gonzalez Catheter: none, stragiht cath once today Disposition: Patient requires Critical Care/ICU for high risk alcohol withdrawal, will be able to step down after weaning off precedex successfully Patient clinical status: Improved Code Status: Full code Critical Care Time: 30min <Master Parikh - Last Filed: 11/24/19 11:28> Vital Signs: Temp Pulse Resp BP SpO2 FiO2 98.1 F 89 15 131/96 98 11/24/19 07:59 11/24/19 09:01 11/24/19 09:01 11/24/19 09:01 11/24/19 09:01 Physical Exam: Gen: HEENT: Lungs: Cardiac: Abdomen: Extremities: Neuro: Fluid Balance (Past 24 Hours): I= O= Net Intake & Output 11/22/19 11/23/19 11/24/19 11/25/19 06:59 06:59 06:59 06:59 Intake Total 2520 2932 3443 125 Output Total 925 1350 2800 0 Balance 1595 1582 643 125 Weight 68.5 kg 69.74 kg 63.1 kg Intake: IV Fluids 1477 1391 1260 NS (0.9%) 1427 1341 1260 mag 50 50 IVPB 50 50 mag 50 50 Medicated IV 93 291 553 CC - Dexmedetomidine/ 93 291 553 Precedex Oral 900 1200 1630 125 Output: Urine 446 297 4081 0 Gonzalez 950 Straight Cath 550 Other: Estimated Void Large Medium # Bowel Movements 0 0 # Voids 1 1 Labs: Laboratory Results - last 24 hr 11/22/19 11/23/19 11/24/19 19:05 13:40 04:55 WBC RBC Hgb Hct MCV MCH MCHC RDW Plt Count MPV Neut % (Auto) Lymph % (Auto) [place] % (Auto) Eos % (Auto) Baso % (Auto) Absolute Neuts (auto) Absolute Lymphs (auto) Absolute Monos (auto) Absolute Eos (auto) Absolute Basos (auto) Absolute Nucleated RBC Nucleated RBC % Sodium 135 135 Potassium 4.0 4.4 Chloride 104 105 Carbon Dioxide 15 L 19 L Anion Gap 16 H 11 BUN 12 12 Creatinine 0.85 0.89 Est GFR ( Amer) 118.5 112.4 Est GFR (Non-Af Amer) 97.9 92.9 BUN/Creatinine Ratio 14.1 13.5 Glucose 94 101 H POC Glucose (mg/dL) 77 Calcium 8.6 10.0 Magnesium 1.7 L 11/24/19 04:55 WBC 7.9 RBC 3.94 L Hgb 15.2 Hct 42 MCV 108 H MCH 39 H MCHC 36 RDW 13 Plt Count 155 MPV 8.0 Neut % (Auto) 63.9 Lymph % (Auto) 22.9 [place] % (Auto) 10.5 Eos % (Auto) 2.0 Baso % (Auto) 0.7 Absolute Neuts (auto) 5.1 Absolute Lymphs (auto) 1.8 Absolute Monos (auto) 0.8 Absolute Eos (auto) 0.2 Absolute Basos (auto) 0.1 Absolute Nucleated RBC 0.0 Nucleated RBC % 0.1 Sodium Potassium Chloride Carbon Dioxide Anion Gap BUN Creatinine Est GFR ( Amer) Est GFR (Non-Af Amer) BUN/Creatinine Ratio Glucose POC Glucose (mg/dL) Calcium Magnesium Plan: 44y M w/pmhx of alcohol abuse, PTSD, anxiety disorder; in ICU for DTs. better overnight; afebrile, BP and HR stable on decreasing doses of precedex awake, alert, oriented, calm, cooperative. given PO thorazine today no further ativan required labs reviewed, acidosis improved; wbc normal is system tomorrow. they recommend use of antipsychotics PO and IM, prn bdz. precedex as needed. qtc 460s at 1am 11/22 EKG plan for psych eval, hopefully precedex off very soon this morning/afternoon. if they state he is competent, he may be candidate for discharge home , but if he is weak he may need PT/OT inpatient; though he states he may leave against medical advise Teaching Attestation This service has been performed in part by a resident under the direction of a teaching physician.I, Dr Master Parikh, performed the service, or was physically present during the critical, or guerra portions of the service, furnished by the resident. I participated in the management of the patient.
[2019-11-24 14:49] VITALS: BP 125/95
--- NOTE | 2019-11-24 15:52 | DS ---
Resident Discharge Summary Discharge Summary: Date of Admission: 11/20/19 Date of Discharge: 11/24/19 Admitting MD: Mary Sulliavn MD Attending MD: Master Parikh MD Primary Care Physician: Aleksander Busby MD Home Medications Medication Instructions Recorded Confirmed Type Propranolol TAB* 80 mg PO DAILY 09/25/19 11/19/19 History Lidocaine PATCH 5%* [Lidoderm 5% 1 patch TRANSDERM DAILY #10 patch 11/24/19 Rx Patch*] Multivitamins/Minerals TAB* 1 tab PO DAILY tab 11/24/19 Rx [Theragran/minerals TAB*] Librium tab 25mg PO BID #14 tablets Rx Gabapentin 600mg PO TID #120 tablets Rx Disposition: Home Condition: Stable Primary Diagnosis: 1. Alcohol withdrawal 2. Delirium Tremens 3. Right lateral nighth rib fracture Secondary Diagnosis: 1. Renal Cell Carcinoma 2. Hypertension Diagnostic Imaging: Brain CT: no abnormality seen. Hip/pelvis X ray: no fracture seen. CT TAP: right lateral nighth rib fracture appears old, noncirrhotic steatotic liver, status post left nephrectomy. mild bipical centrilobular eemphysema. Pertinent Laboratory Results: CBC 11/24/19: WBC 7.9, Hb 15.2, Plt 155 BMP 11/24/19: Na 135, K 4.4, bicarb 19, creatinine 0.89 Hospital Course: Amilcar Scott is a 44 y/o male with history of renal cell carcinoma, status post left nephrectomy, hypertension, alcohol use disorder, presented to [facility] for a fall and right rib pain, found to be in alcohol intoxication with alcohol level 532,alcoholic hepatitis and possible old right 9th rib fracture. It was also noted that multiple family members pointed out that he had suicidal ideation. Please refer to H&P dated 11/19/19 for more information. He was admitted to medical floor therefore for his alcohol intoxication and suicidal ideation. He subsequently developed severe alcohol withdrawal despite standard WAM protocol. He was transferred to ICU 11/20/19 for further management of high risk alcohol withdrawal. He was started on iv Precedex on top of symptom triggered and scheduled ativan dose with close monitor and titration. He had delirium tremens on 11/21 requiring multiple doses of ativan as well as antipsychotic. He was assessed by psychiatrist during this hospitalization for mental capacity assessment. Eventually he weaned off Precedex drip and stablized. On the day of discharge, patient was alert and calm, no extra ativan dose was required. He was assessed by psychiatrist who acknowledged that he had mental capacity in deciding his disposition. Also Thorazine was added by psychiatrist for him. He would like to go home and attend outpatient alcohol rehab program. [facility] [place] information was handed to the patient. He was given gabapentin and one week dose of librium for alcohol cessation. Follow Up Instructions: Follow up with primary care within 1 week. Follow up with [facility] [place]. In case of an emergency or after clinic hours, please go to your nearest Emergency Department. You may also call the [facility] getter operator at ( [phone].
--- NOTE | 2019-11-24 16:54 | CONSULT ---
Identification - Patient Identification Reason for Psychiatric Consultation: Incapacitating Symptoms -: Patient is a 44 year old, M admitted on 11/20/19. - MHU Identification Employment Status: Employed Hx Psychiatric Hospitalization: No History - Objective HPI: Amilcar is seen in the ICU, initially alone and then with his mother, Jigna Scott. Amilcar appears much more cognitively intact today and is aware of his status of acute alcohol withdrawal. He continues to insist that he was only drinking 5 alcoholic drinks per day but I confronted him assertively with the multiple objective findings here in the hospital (FERNANDO, liver failure, delirium tremens symptoms) that would suggest higher patterns of consumption. I told him about the possibility of inpatient alcohol rehab but he declines this. He is also told about outpatient services through [facility], which he agrees to. His mom , upon reentering the room, is informed of his choice. She tries to persuade him to reconsider the option of inpatient treatment but he dismisses this, becoming annoyed but not agitated. He is able to clearly process treatment information and express a choice. He continues to deny SI. Exam Appearance: Thin Framed Hygiene: Normal Grooming: Disheveled Psychomotor Activities: Normal Exhibits Abnormal Movement: No Attitude and Relatedness: Cooperative Eye Contact: Fair - Speech Quality: Unpressured Latencies: Normal Quantity: Appropriate Patient's Decription of Mood: "Okay" Observed Affect: Fair Affect Consistent with: Euthymia Patient's Thought Process: Coherent Thought Content: No Passive Wish, No Suicidal Planning, No Homicidal Ideation, No Paranoid Ideation Experiencing Hallucinations: No, Sensorium is Clear Type of Hallucinations: Visual: No, Auditory: No, Command: No Level of Consciousness: Alert Orientation: Yes Intact, Yes Orientated to Time, Yes Orientated to Place, Yes Orientated to Person Impulse Control: Intact Insight and Judgement: Fair Impression - Impression Clinical Impression: 44 y.o. single, white male with a history of alcohol abuse, knee problems, chronic pain and renal cancer who was admitted to the ICU following an intoxicated fall which resulted in fractured ribs. His course has been complicated by delirium tremens, hallucinations and agitation. Inpatient DSM-V Dx: F10.20 Merits Inpatient Hospitalization: No BSU: Problem List - Patient Problems (1) Alcohol use disorder, moderate, dependence Current Visit: Yes Status: Acute Priority: High Code(s): F10.20 - ALCOHOL DEPENDENCE, UNCOMPLICATED SNOMED Code(s): 597740090 Plan - Treatment Plan Treatment Plan: The patient is no longer in withdrawal. He would benefit from alcohol rehabilitative services but is only willing to consider this on an outpatient basis. The patient has regained decision making capacity and can choose to leave the hospital if he wishes. Recommend f/u at [facility] [place]. Appreciate support. Continue Thorazine at 50mg PO BID dose. Psychiatry is signing off. Continued Medication Management: Start Medication Medications: Current Medications Acetaminophen (Tylenol Tab*) 650 mg PO Q4H PRN PRN Reason: PAIN - MILD Last Admin: 11/20/19 03:36 Dose: 650 mg Al Hydrox/Mg Hydrox/Simethicone (Maalox Plus*) 30 ml PO Q6H PRN PRN Reason: INDIGESTION Artificial Tears (Natural Balance Tears Eye Drop) 1 drop BOTH EYES Q2H PRN PRN Reason: DRY EYE Chlordiazepoxide (Librium Cap*) 25 mg PO BID [facility] Last Admin: 11/24/19 08:54 Dose: 25 mg Chlorpromazine HCl (Thorazine Tab*) 100 mg PO BID [facility] Last Admin: 11/24/19 08:55 Dose: 100 mg Diphenhydramine HCl (Benadryl Po*) 50 mg PO BEDTIME PRN PRN Reason: SLEEP Last Admin: 11/22/19 00:47 Dose: 50 mg Enoxaparin Sodium (Lovenox(*)) 40 mg SUBCUT Q24H [facility] Last Admin: 11/23/19 17:56 Dose: Not Given Famotidine (Pepcid Tab*) 20 mg PO BID [facility] Last Admin: 11/24/19 08:55 Dose: 20 mg Folic Acid (Folvite Tab*) 1 mg PO DAILY [facility] Last Admin: 11/24/19 08:53 Dose: 1 mg Gabapentin (Neurontin Cap(*)) 600 mg PO TID [facility] Last Admin: 11/24/19 08:53 Dose: 600 mg Dexmedetomidine HCl 1,000 mcg/ (Sodium Chloride) 250 mls @ 5.41 mls/hr IV .PER PROTOCOL [facility]; Protocol Last Admin: 11/24/19 07:38 Dose: 20.5 mls/hr Lidocaine (Lidoderm 5% Patch*) 1 patch TRANSDERM DAILY [facility] Last Admin: 11/24/19 08:55 Dose: Not Given Lorazepam (Ativan Inj*) 0 - 3 mg IV PUSH .PER [facility] PROTOCOL [facility]; Protocol Last Admin: 11/23/19 13:45 Dose: 1.5 mg Lorazepam (Ativan Tab(*)) 2 mg PO Q6H [facility] Last Admin: 11/24/19 08:54 Dose: 2 mg Magnesium Oxide (Magox 400 Tab*) 400 mg PO DAILY [facility] Stop: 11/27/19 08:59 Last Admin: 11/24/19 08:50 Dose: 400 mg Miscellaneous (Ativan Pyxis Vo) 1 ea N/A .ATIVAN IV VO PRN PRN Reason: PYXIS VO Multivitamins/Minerals (Theragran/Minerals Tab*) 1 tab PO DAILY [facility] Last Admin: 11/24/19 08:53 Dose: 1 tab Nicotine (Nicotine Patch 14 Mg/24 Hr*) 1 patch TRANSDERM DAILY [facility] Last Admin: 11/24/19 08:55 Dose: Not Given Ondansetron HCl (Zofran Inj*) 4 mg IV Q4H PRN PRN Reason: NAUSEA/VOMITING Last Admin: 11/20/19 17:39 Dose: 4 mg Pharmacy Profile Note (Lidocaine Patch Remove*) 1 note N/A 2100 [facility] Last Admin: 11/23/19 21:20 Dose: 1 note Pharmacy Profile Note (Nicotine Patch Removal Note*) 1 note PATCH OFF [address] [facility] Last Admin: 11/23/19 21:20 Dose: 1 note Propranolol HCl (Inderal La Cap*) 80 mg PO DAILY [facility] Last Admin: 11/24/19 08:54 Dose: 80 mg Thiamine HCl (Vitamin B-1 Tab*) 100 mg PO DAILY [facility] Last Admin: 11/24/19 08:53 Dose: 100 mg Ziprasidone (Geodon Im Inj*) 20 mg IM DAILY PRN PRN Reason: AGITATION - Discharge Plan Discharge Plan: Drug/Alcohol Rehab
== END 2019-11-24 16:00 | disposition home or self-care (01) | DRG 775 ==
LOC: ED 12:34 → MED 17:05 → OBSVTOIN 11-20 11:00 → ICU 11-20 22:58
PROVIDERS: ADMIT Internal Medicine; ATTEND Internal Medicine Critical Care Medicine
DX: F10.231 Alcohol dependence with withdrawal delirium (principal); S22.31XA Fracture of one rib, right side, initial encounter for closed fracture; G89.29 Other chronic pain; F17.210 Nicotine dependence, cigarettes, uncomplicated; I10 Essential (primary) hypertension; F10.221 Alcohol dependence with intoxication delirium; D69.59 Other secondary thrombocytopenia; R74.0 Nonspecific elevation of levels of transaminase and lactic acid dehydrogenase [LDH]; F43.10 Post-traumatic stress disorder, unspecified; F41.9 Anxiety disorder, unspecified; W19.XXXA Unspecified fall, initial encounter; Y90.8 Blood alcohol level of 240 mg/100 ml or more; K70.10 Alcoholic hepatitis without ascites; Z79.899 Other long term (current) drug therapy; Z85.528 Personal history of other malignant neoplasm of kidney; Z90.5 Acquired absence of kidney; Z88.0 Allergy status to penicillin; Z91.041 Radiographic dye allergy status; Z28.21 Immunization not carried out because of patient refusal; Y92.9 Unspecified place or not applicable
CPT/HCPCS: 36415; 70450; 71045; 71250; 74176; 80048; 80053; 80076; 80320; 81003; 81015; 82803; 83605; 83735; 85025; 85610; 87641; 93005; 96361; 96374; 96375; 99284; A9270-GY; G0480; J0360; J1200; J1630; J1650; J2060; J2405; J3475

== ENCOUNTER 2020-04-25 15:33 | Inpatient (IN) ==
[2020-04-25] MEDS ORDERED: Lidocaine PATCH 5% PATCH TRANSDERM ONE (15:56)
[2020-04-25] MEDS ORDERED: Morphine 4 MG/ML VIAL (1 ml) IV ONE (15:56)
[2020-04-25] MEDS ORDERED: NS 0.9% 1000 ml BAG 1,000 ML IV ONE ×2 (15:56→17:20)
[2020-04-25 16:59] LABS: Hematocrit 38 % (42-52); Hemoglobin 13.1 g/dL (14.0-18.0); Mean Corpuscular HGB Conc 35 g/dL (31-36); Mean Corpuscular Hemoglobin 39 pg (27-31); Mean Corpuscular Volume 113 fL (80-94); Mean Platelet Volume 9.4 fL (7.4-10.4); Platelet Count 103 10^3/uL (150-450); Red Blood Count 3.35 10^6 /uL (4.18-5.48); Red Cell Distribution Width 14 % (10-15); White Blood Count 15.8 10^3/uL (3.5-10.8)
[2020-04-25] MEDS ORDERED: Ondansetron 4 mg VIAL 2 MG/ML 2 ml VIAL IV ONE (17:03)
[2020-04-25 17:11] LABS: Albumin 4.6 g/dL (3.2-5.2); Albumin/Globulin Ratio 1.8 (1-3); BUN/Creatinine Ratio 13.1 (8-20); Calcium 9.6 mg/dL (8.6-10.3); EGFR African American 72.6 (>60); Globulin 2.6 g/dL (2-4); Potassium 3.6 mmol/L (3.5-5.0); Total Bilirubin 2.1 mg/dL (0.2-1.0); Total Protein 7.2 g/dL (6.4-8.9)
[2020-04-25] MEDS ORDERED: LORazepam 2 mg VIAL 1 ml IV PUSH ONE ×2 (17:20→23:05)
[2020-04-25] MEDS ORDERED: Lorazepam PYXIS KEY PRN ×2 (17:20→23:04)
[2020-04-25 17:34] LABS: ABS Basophils 0.1 10^3/ul (0-0.2); ABS Lymphocytes 1.1 10^3/ul (1.0-4.8); ABS Monocytes 1.3 10^3/ul (0-0.8); ABS Neutrophils 13.4 10^3/ul (1.5-7.7); Lymphocyte % 6.9 %; Nucleated Red Blood Cells % 0.3
[2020-04-25] MEDS ORDERED: Thiamine 100 MG/ML 2 ml VIAL (200 mg) IM ONE (17:44)
[2020-04-25] MEDS ORDERED: Lorazepam PYXIS KEY ONE (17:51)
[2020-04-25 17:54] LABS: Urine Appearance Cloudy; Urine Bilirubin Negative (Negative); Urine Blood Negative (Negative); Urine Color Amber; Urine Glucose 1+(50 mg/dL) (Negative); Urine Ketones 1+ (Negative); Urine Nitrite Negative (Negative); Urine Protein 2+(100 mg/dL) (Negative); Urine Specific Gravity 1.023 (1.010-1.030); Urine Urobilinogen Positive (Negative)
[2020-04-25 17:57] LABS: Urine Bacteria Absent (Absent); Urine Red Blood Cell Trace(0-2/hpf) (Absent); Urine Squamous Epithelial Cell Present (Absent); Urine White Blood Cell 1+(6-10/hpf) (Absent)
[2020-04-25] MEDS ORDERED: Multivitamins/Minerals TAB PO SCH (18:00)
[2020-04-25 18:10] LABS: Activated Partial Thrombo Time 32.4 seconds (26.0-38.0)
[2020-04-25 18:18] LABS: Magnesium 1.7 mg/dL (1.9-2.7); Phosphorus 7.5 mg/dL (2.5-5.0)
[2020-04-25] MEDS ORDERED: Magnesium Sulfate 2 gm BAG 2 GM/50 ML BAG IVPB ONE (18:58)
[2020-04-25 20:14] LABS: Urine Benzodiazepine Screen None Detected (None Detect); Urine Cannabinoids Screen Presumptive Positive (None Detect); Urine Opiates Screen Presumptive Positive (None Detect)
[2020-04-25] MEDS ORDERED: Lidocaine Patch REMOVE PATCH PATCH OFF SCH (21:00)
[2020-04-25] MEDS ORDERED: Enoxaparin 40 MG/0.4 ML SYR SUBCUT SCH (21:00)
[2020-04-25] MEDS: LORazepam 2 mg VIAL 1 ml IV SCH (21:51)
[2020-04-25] MEDS: LORazepam 2 mg VIAL 1 ml IV PUSH SCH (21:52)
[2020-04-25] MEDS: NS 0.9% 1000 ml BAG 1,000 ML IV SCH (22:19)
[2020-04-26] MEDS: LORazepam 2 mg VIAL 1 ml IV PUSH SCH ×2 (00:19→01:44)
[2020-04-26] MEDS ORDERED: Dexmedetomidine 1,000 MCG in NS 0.9% 250 ml 240 ML IV SCH (01:00)
[2020-04-26] MEDS ORDERED: NS 0.9% 1000 ml BAG 2,000 ML IV ONE (01:18)
[2020-04-26 01:46] LABS: Albumin 3.5 g/dL (3.2-5.2); Albumin/Globulin Ratio 1.9 (1-3); BUN/Creatinine Ratio 15.6 (8-20); Calcium 7.6 mg/dL (8.6-10.3); EGFR African American 78.1 (>60); EGFR Non-African American 64.5 (>60); Globulin 1.8 g/dL (2-4); Potassium 3.6 mmol/L (3.5-5.0); Total Bilirubin 1.8 mg/dL (0.2-1.0); Total Protein 5.3 g/dL (6.4-8.9)
[2020-04-26] MEDS ORDERED: Cefepime 2 GM in Dextrose 2 GM/50 ML BAG IV SCH (02:00)
[2020-04-26] MEDS ORDERED: Nicotine PATCH 21 MG/24 HR PATCH TRANSDERM SCH (02:00)
[2020-04-26] MEDS: LORazepam 2 mg VIAL 1 ml IV SCH (02:16)
[2020-04-26] MEDS ORDERED: metroNIDAZOLE IV 500 MG/100ML 500 MG/100 ML BAG IVPB SCH (02:30)
[2020-04-26 04:11] LABS: ABS Lymphocytes 1.2 10^3/ul (1.0-4.8); ABS Monocytes 0.5 10^3/ul (0-0.8); ABS Neutrophils 5.2 10^3/ul (1.5-7.7); Eosinophil % 0.5 %; Hematocrit 22 % (42-52); Hemoglobin 7.7 g/dL (14.0-18.0); Mean Corpuscular HGB Conc 36 g/dL (31-36); Mean Corpuscular Hemoglobin 40 pg (27-31); Mean Corpuscular Volume 111 fL (80-94); Mean Platelet Volume 9.4 fL (7.4-10.4); Nucleated Red Blood Cells % 0.4; Platelet Count 69 10^3/uL (150-450); Red Blood Count 1.96 10^6 /uL (4.18-5.48); Red Cell Distribution Width 14 % (10-15)
[2020-04-26] MEDS: NS 0.9% 1000 ml BAG 1,000 ML IV SCH (04:19)
[2020-04-26 04:57] LABS: Urine Appearance Cloudy; Urine Bilirubin Negative (Negative); Urine Blood Negative (Negative); Urine Color Amber; Urine Glucose 1+(50 mg/dL) (Negative); Urine Ketones 1+ (Negative); Urine Nitrite Negative (Negative); Urine Protein 1+(30 mg/dL) (Negative); Urine Specific Gravity 1.021 (1.010-1.030); Urine Urobilinogen Positive (Negative)
[2020-04-26 04:59] LABS: Urine Bacteria Absent (Absent); Urine Red Blood Cell Trace(0-2/hpf) (Absent); Urine Squamous Epithelial Cell Present (Absent); Urine White Blood Cell Trace(0-5/hpf) (Absent)
[2020-04-26 06:19] VITALS: BP 105/74
== END 2020-04-26 05:00 | disposition short-term general hospital (02) | DRG 775 ==
LOC: ED 15:33 → MED 18:58 → ICU 04-26 00:54
PROVIDERS: ADMIT Internal Medicine; ATTEND Student in an Organized Health Care Education/Training Program

== ENCOUNTER 2020-08-18 17:43 | Inpatient (IN) ==
[2020-08-18 18:24] LABS: ABS Eosinophils 0.1 10^3/ul (0-0.6); ABS Monocytes 0.9 10^3/ul (0-0.8); ABS Neutrophils 5.2 10^3/ul (1.5-7.7); Eosinophil % 0.8 %; Hematocrit 46 % (42-52); Lymphocyte % 32.2 %; Mean Corpuscular HGB Conc 35 g/dL (31-36); Mean Corpuscular Hemoglobin 36 pg (27-31); Mean Corpuscular Volume 103 fL (80-94); Mean Platelet Volume 6.7 fL (7.4-10.4); Platelet Count 121 10^3/uL (150-450); Red Blood Count 4.45 10^6 /uL (4.18-5.48); Red Cell Distribution Width 16 % (10-15); White Blood Count 9.2 10^3/uL (3.5-10.8)
[2020-08-18 18:29] LABS: INR 0.94 (0.82-1.09)
[2020-08-18 18:42] LABS: Albumin 4.5 g/dL (3.2-5.2); Albumin/Globulin Ratio 1.7 (1-3); BUN/Creatinine Ratio 11.4 (8-20); C Reactive Protein 1.65 mg/L (<8.01); Calcium 9.2 mg/dL (8.6-10.3); EGFR African American 113.8 (>60); EGFR Non-African American 94.1 (>60); Globulin 2.7 g/dL (2-4); Total Bilirubin 0.5 mg/dL (0.2-1.0); Total Protein 7.2 g/dL (6.4-8.9)
[2020-08-18] MEDS ORDERED: NS 0.9% 1000 ml BAG 1,000 ML IV ONE ×2 (18:46→22:50)
[2020-08-18] MEDS ORDERED: Lorazepam PYXIS KEY PRN (21:10)
[2020-08-18] MEDS ORDERED: LORazepam 2 mg VIAL 1 ml IV PUSH ONE (21:10)
[2020-08-18 23:02] LABS: Urine Appearance Clear; Urine Bilirubin Negative (Negative); Urine Blood Negative (Negative); Urine Color Yellow; Urine Glucose Negative (Negative); Urine Ketones 1+ (Negative); Urine Nitrite Negative (Negative); Urine Protein 3+(>=500 mg/dL) (Negative); Urine Urobilinogen Negative (Negative)
[2020-08-18 23:14] LABS: Urine Bacteria Absent (Absent); Urine Red Blood Cell Trace(0-2/hpf) (Absent); Urine Squamous Epithelial Cell Present (Absent); Urine White Blood Cell Trace(0-5/hpf) (Absent)
[2020-08-19 02:50] LABS: Troponin I 0.01 ng/mL (<0.03)
[2020-08-19] MEDS ORDERED: Diazepam INJ CARPUJECT 5 MG/ML IV ONE (08:02)
[2020-08-19] MEDS ORDERED: diPHENhydraMINE IV 50 MG/ML 1 ml VIAL (BENADRYL) IV ONE (08:35)
[2020-08-19] MEDS ORDERED: Dexamethasone IV 4 MG/ML 5 ML VIAL (20 MG) IVPB ONE (08:35)
[2020-08-19] MEDS ORDERED: Betamethasone 6 mg/ml 5 ml VIAL IM ONE (08:36)
[2020-08-19] MEDS ORDERED: Thiamine 100 MG/ML 2 ml VIAL 100 MG, Folic Acid 1 MG, Multiple Vitamin IV ADULT 10 ML i... IV ONE (09:00)
[2020-08-19 09:34] LABS: ABS Lymphocytes 1.4 10^3/ul (1.0-4.8); ABS Monocytes 0.8 10^3/ul (0-0.8); Eosinophil % 0.5 %; Hematocrit 43 % (42-52); Hemoglobin 15.1 g/dL (14.0-18.0); Lymphocyte % 16.5 %; Mean Corpuscular HGB Conc 35 g/dL (31-36); Mean Corpuscular Hemoglobin 36 pg (27-31); Mean Corpuscular Volume 102 fL (80-94); Mean Platelet Volume 7.2 fL (7.4-10.4); Platelet Count 108 10^3/uL (150-450); Red Blood Count 4.18 10^6 /uL (4.18-5.48); Red Cell Distribution Width 15 % (10-15); White Blood Count 8.3 10^3/uL (3.5-10.8)
[2020-08-19] MEDS: Nicotine PATCH 21 MG/24 HR PATCH TRANSDERM SCH (09:49)
[2020-08-19 09:52] LABS: Albumin 4.3 g/dL (3.2-5.2); Albumin/Globulin Ratio 1.5 (1-3); BUN/Creatinine Ratio 9.7 (8-20); EGFR African American 170.5 (>60); EGFR Non-African American 140.9 (>60); Globulin 2.9 g/dL (2-4); Indirect Bilirubin 0.7 mg/dL (0.3-1.0); Magnesium 1.3 mg/dL (1.9-2.7); Potassium 3.8 mmol/L (3.5-5.0); Total Bilirubin 0.9 mg/dL (0.2-1.0); Total Protein 7.2 g/dL (6.4-8.9)
[2020-08-19] MEDS ORDERED: Iodixanol (CONTRAST) 320 MG/ML 100 ML SDV IV ONE (10:35)
[2020-08-19] MEDS ORDERED: Lorazepam PYXIS KEY PRN ×4 (11:46→17:35)
[2020-08-19] MEDS ORDERED: LORazepam 2 mg VIAL 1 ml IV PUSH ONE ×3 (11:46→16:21)
[2020-08-19] MEDS ORDERED: Lactated Ringers 1000 ml BAG 1,000 ML IV ONE (11:55)
[2020-08-19] MEDS ORDERED: Thiamine 100 MG/ML 2 ml VIAL (200 mg) IM ONE (16:34)
[2020-08-19] MEDS: LORazepam 2 mg VIAL 1 ml IV PUSH SCH ×2 (20:03→22:07)
[2020-08-19 20:21] LABS: BUN/Creatinine Ratio 11.1 (8-20); Calcium 9.9 mg/dL (8.6-10.3); EGFR African American 167.4 (>60); EGFR Non-African American 138.3 (>60); Potassium 3.9 mmol/L (3.5-5.0)
[2020-08-19] MEDS ORDERED: NS 0.9% 500 ml BAG 500 ML IV SCH (21:00)
[2020-08-19] MEDS ORDERED: Gadoteridol (CONTRAST) 279.3 MG/ML 10 ML IV ONE (21:01)
[2020-08-19] MEDS: Dexmedetomidine 1,000 MCG in NS 0.9% 250 ml 240 ML IV SCH (23:58)
[2020-08-20] MEDS: LORazepam 2 mg VIAL 1 ml IV PUSH SCH ×10 (00:13→23:50)
[2020-08-20 04:23] LABS: ABS Lymphocytes 1.2 10^3/ul (1.0-4.8); ABS Monocytes 0.9 10^3/ul (0-0.8); ABS Neutrophils 6.3 10^3/ul (1.5-7.7); Eosinophil % 0.1 %; Hematocrit 44 % (42-52); Hemoglobin 15.6 g/dL (14.0-18.0); Lymphocyte % 14.6 %; Mean Corpuscular HGB Conc 35 g/dL (31-36); Mean Corpuscular Hemoglobin 36 pg (27-31); Mean Corpuscular Volume 102 fL (80-94); Mean Platelet Volume 8.1 fL (7.4-10.4); Platelet Count 105 10^3/uL (150-450); Red Blood Count 4.35 10^6 /uL (4.18-5.48); Red Cell Distribution Width 15 % (10-15); White Blood Count 8.4 10^3/uL (3.5-10.8)
[2020-08-20] MEDS ORDERED: Ondansetron 4 mg VIAL 2 MG/ML 2 ml VIAL IV ONE (04:27)
[2020-08-20 04:39] LABS: BUN/Creatinine Ratio 13.6 (8-20); Calcium 9.5 mg/dL (8.6-10.3); EGFR African American 180.6 (>60); EGFR Non-African American 149.2 (>60); Magnesium 1.4 mg/dL (1.9-2.7); Potassium 3.8 mmol/L (3.5-5.0)
[2020-08-20] MEDS ORDERED: Magnesium Sulfate IV 3 GM in NS 0.9% 100 ml BAG 100 ML IVPB ONE (05:04)
[2020-08-20] MEDS: Multivitamins/Minerals TAB PO SCH (07:49)
[2020-08-20] MEDS: Nicotine PATCH 21 MG/24 HR PATCH TRANSDERM SCH (07:49)
[2020-08-20] MEDS ORDERED: Potassium Chloride LIQUID 20 MEQ/15 ML LIQUID PO ONE (08:45)
[2020-08-20] MEDS ORDERED: Magnesium Sulfate 2 gm BAG 2 GM/50 ML BAG IVPB ONE (08:45)
[2020-08-20] MEDS: Thiamine 100 MG/ML 2 ml VIAL 500 MG in NS 0.9% 250 ml 250 ML IV SCH ×2 (11:04→18:12)
[2020-08-20 12:00] LABS: TSH Ultra Thyroid Stim Horm 1.22 mcIU/mL (0.34-5.60)
[2020-08-20 12:04] LABS: Free T4 0.78 ng/dL (0.61-1.12)
[2020-08-20 12:12] LABS: Folate > 20.00 ng/mL (>3.99)
[2020-08-20 12:13] LABS: Vitamin B12 642 pg/mL (180-914)
[2020-08-20] MEDS ORDERED: Calcium Carb (TUMS) 500 mg CHEW TAB PO ONE (12:55)
[2020-08-20] MEDS ORDERED: Lorazepam PYXIS KEY PRN (22:23)
[2020-08-20] MEDS ORDERED: LORazepam 2 mg VIAL 1 ml IV PUSH ONE (22:23)
[2020-08-21] MEDS: LORazepam 2 mg VIAL 1 ml IV PUSH SCH ×3 (01:20→05:45)
[2020-08-21] MEDS: Thiamine 100 MG/ML 2 ml VIAL 500 MG in NS 0.9% 250 ml 250 ML IV SCH ×3 (01:24→17:47)
[2020-08-21] MEDS ORDERED: Lorazepam PYXIS KEY PRN (02:10)
[2020-08-21] MEDS ORDERED: LORazepam 2 mg VIAL 1 ml IV PUSH ONE (02:10)
[2020-08-21 05:32] LABS: BUN/Creatinine Ratio 21.3 (8-20); Calcium 9.3 mg/dL (8.6-10.3); EGFR African American 173.8 (>60); EGFR Non-African American 143.6 (>60); Magnesium 1.8 mg/dL (1.9-2.7); Phosphorus 3.5 mg/dL (2.5-5.0); Potassium 3.7 mmol/L (3.5-5.0)
[2020-08-21] MEDS: Nicotine PATCH 21 MG/24 HR PATCH TRANSDERM SCH (07:52)
[2020-08-21] MEDS: Multivitamins/Minerals TAB PO SCH (07:52)
[2020-08-21] MEDS ORDERED: Magnesium Sulfate 2 gm BAG 2 GM/50 ML BAG IVPB ONE (07:54)
[2020-08-21] MEDS ORDERED: Potassium Chlor 20 meq TAB.ER PO ONE (08:36)
[2020-08-21] MEDS: Dexmedetomidine 1,000 MCG in NS 0.9% 250 ml 240 ML IV SCH ×2 (12:01→22:00)
[2020-08-22] MEDS: Thiamine 100 MG/ML 2 ml VIAL 500 MG in NS 0.9% 250 ml 250 ML IV SCH ×2 (01:18→08:38)
[2020-08-22 04:46] LABS: Hematocrit 44 % (42-52); Hemoglobin 15.5 g/dL (14.0-18.0); Mean Corpuscular HGB Conc 35 g/dL (31-36); Mean Corpuscular Hemoglobin 36 pg (27-31); Mean Corpuscular Volume 103 fL (80-94); Mean Platelet Volume 8.3 fL (7.4-10.4); Platelet Count 115 10^3/uL (150-450); Red Cell Distribution Width 15 % (10-15); White Blood Count 11.4 10^3/uL (3.5-10.8)
[2020-08-22 05:05] LABS: BUN/Creatinine Ratio 15.9 (8-20); Calcium 8.9 mg/dL (8.6-10.3); EGFR African American 167.4 (>60); EGFR Non-African American 138.3 (>60); Magnesium 1.7 mg/dL (1.9-2.7); Potassium 3.9 mmol/L (3.5-5.0)
[2020-08-22 05:45] LABS: ABS Eosinophils 0.1 10^3/ul (0-0.6); ABS Lymphocytes 1.9 10^3/ul (1.0-4.8); ABS Monocytes 0.9 10^3/ul (0-0.8); ABS Neutrophils 8.5 10^3/ul (1.5-7.7); Eosinophil % 0.9 %; Lymphocyte % 16.2 %
[2020-08-22] MEDS: Dexmedetomidine 1,000 MCG in NS 0.9% 250 ml 240 ML IV SCH (07:17)
[2020-08-22] MEDS: Nicotine PATCH 21 MG/24 HR PATCH TRANSDERM SCH (08:34)
[2020-08-22] MEDS ORDERED: Magnesium Sulfate 2 gm BAG 2 GM/50 ML BAG IVPB ONE (08:35)
[2020-08-22] MEDS ORDERED: Potassium Chlor 20 meq TAB.ER PO ONE (08:35)
[2020-08-22] MEDS: Multivitamins/Minerals TAB PO SCH (08:37)
[2020-08-22] MEDS ORDERED: Thiamine 100 MG/ML 2 ml VIAL (200 mg) IV SCH (09:00)
[2020-08-22] MEDS: Thiamine IV 250 MG in NS 0.9% 100 ML Q24H IV SCH (11:46)
[2020-08-22 13:17] LABS: Albumin 3.3 g/dL (3.4-4.7); Albumin/Globulin Ratio 1.07; Gamma Globulin 0.9 g/dL (0.6-1.6); Total Protein(PEP) 6.4 g/dL (6.3 - 7.9)
[2020-08-23 04:06] LABS: Hematocrit 43 % (42-52); Hemoglobin 14.6 g/dL (14.0-18.0); Mean Corpuscular HGB Conc 34 g/dL (31-36); Mean Corpuscular Hemoglobin 36 pg (27-31); Mean Corpuscular Volume 104 fL (80-94); Mean Platelet Volume 7.6 fL (7.4-10.4); Platelet Count 162 10^3/uL (150-450); Red Cell Distribution Width 15 % (10-15); White Blood Count 14.3 10^3/uL (3.5-10.8)
[2020-08-23 04:26] LABS: BUN/Creatinine Ratio 18.1 (8-20); Calcium 9.3 mg/dL (8.6-10.3); EGFR African American 143.5 (>60); EGFR Non-African American 118.6 (>60); Magnesium 1.9 mg/dL (1.9-2.7); Potassium 3.8 mmol/L (3.5-5.0)
[2020-08-23 05:13] LABS: ABS Basophils 0.1 10^3/ul (0-0.2); ABS Eosinophils 0.2 10^3/ul (0-0.6); ABS Lymphocytes 2.2 10^3/ul (1.0-4.8); ABS Monocytes 1.4 10^3/ul (0-0.8); ABS Neutrophils 10.5 10^3/ul (1.5-7.7); Eosinophil % 1.1 %; Lymphocyte % 15.3 %
[2020-08-23] MEDS: Multivitamins/Minerals TAB PO SCH (08:01)
[2020-08-23] MEDS: Nicotine PATCH 21 MG/24 HR PATCH TRANSDERM SCH (08:12)
[2020-08-23] MEDS: Thiamine IV 250 MG in NS 0.9% 100 ML Q24H IV SCH (10:08)
[2020-08-23] MEDS ORDERED: Lactated Ringers 1000 ml BAG 1,000 ML IV ONE (12:44)
[2020-08-23] MEDS: Dexmedetomidine 1,000 MCG in NS 0.9% 250 ml 240 ML IV SCH ×2 (14:49→23:41)
[2020-08-23] MEDS ORDERED: Lorazepam PYXIS KEY PRN ×2 (16:08→18:19)
[2020-08-23] MEDS ORDERED: LORazepam 2 mg VIAL 1 ml IV PUSH ONE (16:08)
[2020-08-23] MEDS ORDERED: Lorazepam PYXIS KEY ONE (17:12)
[2020-08-23] MEDS ORDERED: LORazepam 2 mg VIAL 1 ml ONE (17:12)
[2020-08-23] MEDS ORDERED: LORazepam 2 mg VIAL 1 ml IV PUSH PRN (18:19)
[2020-08-24 04:04] LABS: Hematocrit 42 % (42-52); Hemoglobin 14.2 g/dL (14.0-18.0); Mean Corpuscular HGB Conc 34 g/dL (31-36); Mean Corpuscular Hemoglobin 36 pg (27-31); Mean Corpuscular Volume 106 fL (80-94); Mean Platelet Volume 6.9 fL (7.4-10.4); Platelet Count 216 10^3/uL (150-450); Red Blood Count 3.94 10^6 /uL (4.18-5.48); Red Cell Distribution Width 15 % (10-15); White Blood Count 11.9 10^3/uL (3.5-10.8)
[2020-08-24 04:15] LABS: BUN/Creatinine Ratio 15.7 (8-20); Calcium 9.6 mg/dL (8.6-10.3); EGFR African American 148.2 (>60); EGFR Non-African American 122.5 (>60); Magnesium 1.8 mg/dL (1.9-2.7)
[2020-08-24] MEDS: Nicotine PATCH 21 MG/24 HR PATCH TRANSDERM SCH (08:20)
[2020-08-24] MEDS: Multivitamins/Minerals TAB PO SCH (08:20)
[2020-08-24] MEDS: Dexmedetomidine 1,000 MCG in NS 0.9% 250 ml 240 ML IV SCH ×2 (08:35→18:15)
[2020-08-24 08:38] LABS: ABS Eosinophils 0.2 10^3/ul (0-0.6); ABS Lymphocytes 1.9 10^3/ul (1.0-4.8); ABS Monocytes 1.3 10^3/ul (0-0.8); ABS Neutrophils 8.5 10^3/ul (1.5-7.7); Eosinophil % 1.5 %; Lymphocyte % 15.6 %
[2020-08-24] MEDS: Thiamine IV 250 MG in NS 0.9% 100 ML Q24H IV SCH (10:08)
[2020-08-24] MEDS ORDERED: Magnesium Sulfate 2 gm BAG 2 GM/50 ML BAG IVPB ONE (14:54)
[2020-08-24] MEDS ORDERED: Magnesium Sulfate 2 gm BAG 2 GM/50 ML BAG ONE (15:04)
[2020-08-24] MEDS ORDERED: Lorazepam PYXIS KEY PRN (15:22)
[2020-08-24] MEDS: LORazepam 2 mg VIAL 1 ml IV PUSH PRN ×2 (15:24→20:10)
[2020-08-24 16:05] LABS: Phosphorus 4.4 mg/dL (2.5-5.0)
[2020-08-25] MEDS: LORazepam 2 mg VIAL 1 ml IV PUSH PRN (01:59)
[2020-08-25] MEDS: Dexmedetomidine 1,000 MCG in NS 0.9% 250 ml 240 ML IV SCH (04:14)
[2020-08-25] MEDS: Multivitamins/Minerals TAB PO SCH (07:54)
[2020-08-25] MEDS: Nicotine PATCH 21 MG/24 HR PATCH TRANSDERM SCH (07:55)
[2020-08-25] MEDS: Thiamine IV 250 MG in NS 0.9% 100 ML Q24H IV SCH (09:32)
[2020-08-25] MEDS ORDERED: Magnesium Sulfate 2 gm BAG 2 GM/50 ML BAG IVPB ONE ×2 (09:56→12:38)
[2020-08-25 11:49] LABS: Hematocrit 40 % (42-52); Hemoglobin 13.7 g/dL (14.0-18.0); Mean Corpuscular HGB Conc 34 g/dL (31-36); Mean Corpuscular Hemoglobin 36 pg (27-31); Mean Corpuscular Volume 106 fL (80-94); Platelet Count 279 10^3/uL (150-450); Red Blood Count 3.79 10^6 /uL (4.18-5.48); Red Cell Distribution Width 15 % (10-15); White Blood Count 8.7 10^3/uL (3.5-10.8)
[2020-08-25 11:50] LABS: Albumin 3.6 g/dL (3.2-5.2); Albumin/Globulin Ratio 1.3 (1-3); BUN/Creatinine Ratio 14.5 (8-20); Calcium 9.4 mg/dL (8.6-10.3); EGFR African American 134.8 (>60); EGFR Non-African American 111.4 (>60); Globulin 2.8 g/dL (2-4); Magnesium 1.7 mg/dL (1.9-2.7); Potassium 4.3 mmol/L (3.5-5.0); Total Bilirubin 0.5 mg/dL (0.2-1.0); Total Protein 6.4 g/dL (6.4-8.9)
[2020-08-25 12:54] LABS: ABS Basophils 0.1 10^3/ul (0-0.2); ABS Eosinophils 0.2 10^3/ul (0-0.6); ABS Lymphocytes 1.8 10^3/ul (1.0-4.8); ABS Monocytes 1.4 10^3/ul (0-0.8); ABS Neutrophils 5.2 10^3/ul (1.5-7.7); Eosinophil % 1.9 %; Lymphocyte % 20.6 %; Nucleated Red Blood Cells % 0.1
[2020-08-25 12:59] VITALS: BP 143/106
== END 2020-08-25 14:00 | disposition home or self-care (01) | DRG 775 ==
LOC: ED 17:43 → ICU 08-19 16:31
PROVIDERS: ADMIT Pediatrics; ATTEND Internal Medicine

== ENCOUNTER 2021-02-19 17:26 | Inpatient (IN) ==
[2021-02-19] MEDS ORDERED: Thiamine 100 MG/ML 2 ml VIAL 100 MG, Folic Acid IV 1 MG, Multiple Vitamin IV ADULT 10 M... IV ONE (17:29)
[2021-02-19 19:19] LABS: Hematocrit 37 % (42-52); Hemoglobin 12.7 g/dL (14.0-18.0); Mean Corpuscular HGB Conc 35 g/dL (31-36); Mean Corpuscular Hemoglobin 40 pg (27-31); Mean Corpuscular Volume 116 fL (80-94); Mean Platelet Volume 7.9 fL (7.4-10.4); Platelet Count 134 10^3/uL (150-450); Red Blood Count 3.17 10^6 /uL (4.18-5.48); Red Cell Distribution Width 15 % (10-15); White Blood Count 12.1 10^3/uL (3.5-10.8)
[2021-02-19 19:38] LABS: Albumin 3.3 g/dL (3.2-5.2); Albumin/Globulin Ratio 1.3 (1-3); EGFR African American 199.1 (>60); EGFR Non-African American 164.5 (>60); Globulin 2.6 g/dL (2-4); Potassium 3.4 mmol/L (3.5-5.0); Total Bilirubin 2.8 mg/dL (0.2-1.0); Total Protein 5.9 g/dL (6.4-8.9)
[2021-02-19 20:13] LABS: ABS Basophils 0.1 10^3/ul (0-0.2); ABS Eosinophils 0.1 10^3/ul (0-0.6); ABS Lymphocytes 1.8 10^3/ul (1.0-4.8); ABS Monocytes 0.6 10^3/ul (0-0.8); ABS Neutrophils 9.6 10^3/ul (1.5-7.7); Eosinophil % 0.5 %; Lymphocyte % 14.9 %; Nucleated Red Blood Cells % 0.2
[2021-02-19] MEDS ORDERED: Thiamine 100 MG/ML 2 ml VIAL (200 mg) IM ONE (20:36)
[2021-02-19] MEDS ORDERED: NS 0.9% w/ 20 Meq KCL 1000 ml 1,000 ML IV SCH (22:00)
[2021-02-19 22:37] LABS: Urine Benzodiazepine Screen None Detected (None Detect); Urine Cannabinoids Screen Presumptive Positive (None Detect); Urine Opiates Screen None Detected (None Detect)
[2021-02-20 06:53] LABS: Calcium 7.6 mg/dL (8.6-10.3); EGFR African American 212.7 (>60); EGFR Non-African American 175.8 (>60); Magnesium 1.6 mg/dL (1.9-2.7); Potassium 3.4 mmol/L (3.5-5.0)
[2021-02-20 07:03] LABS: Hematocrit 32 % (42-52); Hemoglobin 11.2 g/dL (14.0-18.0); Mean Corpuscular HGB Conc 35 g/dL (31-36); Mean Corpuscular Hemoglobin 41 pg (27-31); Mean Corpuscular Volume 116 fL (80-94); Mean Platelet Volume 7.5 fL (7.4-10.4); Platelet Count 112 10^3/uL (150-450); Red Blood Count 2.75 10^6 /uL (4.18-5.48); Red Cell Distribution Width 15 % (10-15); White Blood Count 9.9 10^3/uL (3.5-10.8)
[2021-02-20 07:39] LABS: ABS Basophils 0.1 10^3/ul (0-0.2); ABS Lymphocytes 0.9 10^3/ul (1.0-4.8); ABS Monocytes 0.4 10^3/ul (0-0.8); ABS Neutrophils 8.5 10^3/ul (1.5-7.7); Eosinophil % 0.4 %; Lymphocyte % 8.7 %; Nucleated Red Blood Cells % 0.2
[2021-02-20] MEDS ORDERED: Magnesium Sulfate IV 3 GM in NS 0.9% 100 ml BAG 100 ML IVPB ONE (08:00)
[2021-02-20] MEDS ORDERED: Potassium Chlor 20 meq TAB.ER PO ONE (08:00)
[2021-02-20] MEDS: Nicotine PATCH 21 MG/24 HR PATCH TRANSDERM SCH (08:12)
[2021-02-20] MEDS: Multivitamins/Minerals TAB PO SCH (08:14)
[2021-02-20] MEDS: Enoxaparin 40 MG/0.4 ML SYR SUBCUT SCH (16:47)
[2021-02-20 20:24] LABS: TSH Ultra Thyroid Stim Horm 1.81 mcIU/mL (0.34-5.60)
[2021-02-20 20:50] LABS: Urine Appearance Clear; Urine Bilirubin 1+ (Negative); Urine Blood Negative (Negative); Urine Color Amber; Urine Glucose Negative (Negative); Urine Ketones Trace (Negative); Urine Nitrite Negative (Negative); Urine Protein 2+(100 mg/dL) (Negative); Urine Specific Gravity 1.025 (1.002-1.030); Urine Urobilinogen Positive (Negative)
[2021-02-20 20:56] LABS: Urine Bacteria Absent (Absent); Urine Red Blood Cell 1+(3-5/hpf) (Absent); Urine White Blood Cell Absent (Absent)
[2021-02-21 06:01] LABS: Hematocrit 31 % (42-52); Mean Corpuscular HGB Conc 35 g/dL (31-36); Mean Corpuscular Hemoglobin 41 pg (27-31); Mean Corpuscular Volume 116 fL (80-94); Platelet Count 102 10^3/uL (150-450); Red Blood Count 2.68 10^6 /uL (4.18-5.48); Red Cell Distribution Width 14 % (10-15); White Blood Count 9.8 10^3/uL (3.5-10.8)
[2021-02-21 06:41] LABS: ABS Basophils 0.1 10^3/ul (0-0.2); ABS Eosinophils 0.1 10^3/ul (0-0.6); ABS Lymphocytes 1.6 10^3/ul (1.0-4.8); ABS Monocytes 0.5 10^3/ul (0-0.8); ABS Neutrophils 7.6 10^3/ul (1.5-7.7); ABS Nucleated RBC 0.1 10^3/ul; Lymphocyte % 15.8 %; Nucleated Red Blood Cells % 0.7
[2021-02-21 06:56] LABS: Albumin 2.9 g/dL (3.2-5.2); Albumin/Globulin Ratio 1.3 (1-3); Calcium 8.3 mg/dL (8.6-10.3); EGFR African American 203.4 (>60); EGFR Non-African American 168.1 (>60); Globulin 2.3 g/dL (2-4); Potassium 3.8 mmol/L (3.5-5.0); Total Protein 5.2 g/dL (6.4-8.9)
[2021-02-21] MEDS: Nicotine PATCH 21 MG/24 HR PATCH TRANSDERM SCH (08:36)
[2021-02-21] MEDS: Multivitamins/Minerals TAB PO SCH (08:38)
[2021-02-21 11:30] LABS: INR 1.24 (0.82-1.09)
[2021-02-21] MEDS: Enoxaparin 40 MG/0.4 ML SYR SUBCUT SCH (17:58)
[2021-02-22 05:48] LABS: Hematocrit 31 % (42-52); Hemoglobin 10.9 g/dL (14.0-18.0); Mean Corpuscular HGB Conc 35 g/dL (31-36); Mean Corpuscular Hemoglobin 41 pg (27-31); Mean Corpuscular Volume 117 fL (80-94); Platelet Count 110 10^3/uL (150-450); Red Blood Count 2.66 10^6 /uL (4.18-5.48); Red Cell Distribution Width 14 % (10-15)
[2021-02-22 06:10] LABS: Albumin 2.9 g/dL (3.2-5.2); Albumin/Globulin Ratio 1.3 (1-3); Calcium 8.4 mg/dL (8.6-10.3); EGFR African American 222.7 (>60); EGFR Non-African American 184.1 (>60); Globulin 2.2 g/dL (2-4); Potassium 3.7 mmol/L (3.5-5.0); Total Bilirubin 5.3 mg/dL (0.2-1.0); Total Protein 5.1 g/dL (6.4-8.9)
[2021-02-22 08:27] LABS: Polychromasia 1+
[2021-02-22 08:28] LABS: ABS Basophils 0.1 10^3/ul (0-0.2); ABS Eosinophils 0.1 10^3/ul (0-0.6); ABS Lymphocytes 1.4 10^3/ul (1.0-4.8); ABS Monocytes 0.5 10^3/ul (0-0.8); ABS Neutrophils 6.8 10^3/ul (1.5-7.7); ABS Nucleated RBC 0.1 10^3/ul; Eosinophil % 1.3 %; Lymphocyte % 16.1 %; Nucleated Red Blood Cells % 0.7
[2021-02-22] MEDS: Multivitamins/Minerals TAB PO SCH (08:50)
[2021-02-22] MEDS: Nicotine PATCH 21 MG/24 HR PATCH TRANSDERM SCH (08:50)
[2021-02-22] MEDS ORDERED: Potassium Chlor 20 meq TAB.ER PO ONE (09:18)
[2021-02-22 09:37] LABS: Magnesium 1.6 mg/dL (1.9-2.7)
[2021-02-22] MEDS ORDERED: Magnesium Sulfate 2 gm BAG 2 GM/50 ML BAG IVPB ONE (13:38)
[2021-02-22] MEDS ORDERED: Lactated Ringers 1000 ml BAG 1,000 ML IV SCH (14:00)
[2021-02-22] MEDS: Enoxaparin 40 MG/0.4 ML SYR SUBCUT SCH (16:15)
[2021-02-22] MEDS ORDERED: LORazepam 2 mg VIAL 1 ml IV PUSH ONE (18:17)
[2021-02-22] MEDS ORDERED: Lorazepam PYXIS KEY PRN (18:17)
[2021-02-23 06:02] LABS: Calcium 8.3 mg/dL (8.6-10.3); EGFR African American 163.6 (>60); EGFR Non-African American 135.2 (>60); Magnesium 1.8 mg/dL (1.9-2.7); Potassium 4.3 mmol/L (3.5-5.0)
[2021-02-23 07:23] LABS: Albumin 2.7 g/dL (3.2-5.2); Albumin/Globulin Ratio 1.2 (1-3); Globulin 2.3 g/dL (2-4); Indirect Bilirubin 1.9 mg/dL (0.3-1.0); Total Bilirubin 5.6 mg/dL (0.2-1.0)
[2021-02-23] MEDS: Multivitamins/Minerals TAB PO SCH (08:34)
[2021-02-23] MEDS: Nicotine PATCH 21 MG/24 HR PATCH TRANSDERM SCH (08:34)
[2021-02-23] MEDS ORDERED: Magnesium Sulfate 2 gm BAG 2 GM/50 ML BAG IVPB ONE (10:16)
[2021-02-23] MEDS: Enoxaparin 40 MG/0.4 ML SYR SUBCUT SCH (17:37)
[2021-02-24 05:10] LABS: Hematocrit 32 % (42-52); Hemoglobin 10.8 g/dL (14.0-18.0); INR 1.34 (0.82-1.09); Mean Corpuscular HGB Conc 34 g/dL (31-36); Mean Corpuscular Hemoglobin 41 pg (27-31); Mean Corpuscular Volume 120 fL (80-94); Mean Platelet Volume 8.2 fL (7.4-10.4); Platelet Count 186 10^3/uL (150-450); Red Blood Count 2.64 10^6 /uL (4.18-5.48); Red Cell Distribution Width 15 % (10-15); White Blood Count 9.3 10^3/uL (3.5-10.8)
[2021-02-24 05:40] LABS: Albumin 2.6 g/dL (3.2-5.2); Albumin/Globulin Ratio 1.2 (1-3); Calcium 8.1 mg/dL (8.6-10.3); EGFR African American 142.8 (>60); EGFR Non-African American 118.1 (>60); Globulin 2.1 g/dL (2-4); Potassium 3.9 mmol/L (3.5-5.0); Total Bilirubin 4.4 mg/dL (0.2-1.0); Total Protein 4.7 g/dL (6.4-8.9)
[2021-02-24 05:48] LABS: Polychromasia 1+
[2021-02-24 05:49] LABS: ABS Basophils 0.1 10^3/ul (0-0.2); ABS Eosinophils 0.1 10^3/ul (0-0.6); ABS Lymphocytes 1.7 10^3/ul (1.0-4.8); ABS Monocytes 1.2 10^3/ul (0-0.8); ABS Neutrophils 6.3 10^3/ul (1.5-7.7); Eosinophil % 1.2 %; Lymphocyte % 18.4 %; Nucleated Red Blood Cells % 0.3
[2021-02-24] MEDS: Nicotine PATCH 21 MG/24 HR PATCH TRANSDERM SCH (10:08)
[2021-02-24] MEDS: Multivitamins/Minerals TAB PO SCH (10:08)
[2021-02-24] MEDS: Enoxaparin 40 MG/0.4 ML SYR SUBCUT SCH (18:15)
[2021-02-25] MEDS: Nicotine PATCH 21 MG/24 HR PATCH TRANSDERM SCH (10:10)
[2021-02-25] MEDS: Multivitamins/Minerals TAB PO SCH (10:10)
[2021-02-25] MEDS ORDERED: NS 0.9% 1000 ml BAG 1,000 ML IV SCH (13:45)
[2021-02-25] MEDS: Enoxaparin 40 MG/0.4 ML SYR SUBCUT SCH (17:09)
[2021-02-26 09:03] VITALS: BP 108/70
[2021-02-26] MEDS: Nicotine PATCH 21 MG/24 HR PATCH TRANSDERM SCH (09:22)
[2021-02-26] MEDS: Multivitamins/Minerals TAB PO SCH (09:23)
== END 2021-02-26 09:40 | DRG 775 ==
LOC: ED 17:26 → EDHOLD 20:39 → MEDTELE 02-20 02:56
PROVIDERS: ADMIT Internal Medicine; ATTEND Internal Medicine